=== PATIENT | female | born 1935 | race Caucasian/White ===

== ENCOUNTER 2016-04-07 15:20 | Emergency (ER) | payer OTHER ==
[2016-04-07 15:36] VITALS: BP 123/67; PULSE 59; TEMP 97.9; BMI 23.0
[2016-04-07 15:55] LABS: BASOPHIL 0.7 % (0-2.0); EOSINOPHIL 0.4 % (0-4.5); MCH 27.7 pg (25.7-33.7); MCHC 33.1 g/dl (32.0-36.0); MEAN CELL VOLUME 83.7 fl (80-96); NEUTROPHILS 87.7 % (42.8-82.8); PLATELET COUNT 354 K/MM3 (134-434); RDW 16.5 % (11.6-15.6); WHITE BLOOD COUNT 13.4 K/mm3 (4.0-10.0)
[2016-04-07] MEDS ORDERED: PANTOPRAZOLE SODIUM 40 MG in SODIUM CHLORIDE 100 ML IVPB ONE (15:57)
--- NOTE | 2016-04-07 15:57 | PDOC ---
History of Present Illness <Lalo Bowling - Last Filed: 04/07/16 16:02> - General History Source: Patient Exam Limitations: No Limitations - History of Present Illness Initial Comments: 04/07/16 16:03 The patient is a 81 year old female, with significant past medical history HTN, HLD, [place] (10 years ago) CAD (stent x1), COPD, GERD, hypothyroidism, peptic ulcer disease, severe anemia, who presents today complaining of abdominal pain and nausea. Zofran was administered to the patient in the field. The patient states that she experienced epigastric pain that was nonradiating, while she was at the store. She states that the pain was severe and felt like a spasm. Upon arrival to the emergency room, she is not experiencing any symptoms. Denies fever, chills, constipation, diarrhea. Denies chest pain, SOB. Allergies: Penicillin, Dicloxacillin Surgical Hx: subtotal gastrectomy, appendectomy, cholecystectomy. Social Hx: Former smoker. Former alcohol use. Registered Mail Clerk: Dr. Terell Boland Bottom Precipitator Operator: Dr. Patel <Corrina Jiménez - Last Filed: 04/07/16 16:16> <Barbara Lombardo - Last Filed: 04/07/16 20:43> - General Chief Complaint: Pain, Acute Stated Complaint: ABD PAIN Past History - Past Medical History Cardiac Disorders: Yes ([place] 10 year ago 1 stent) COPD: Yes (H/O PNEUMONIA) GI Disorders: Yes (ACID REFLUX) HTN: Yes Hypercholesterolemia: Yes Thyroid Disease: Yes - Surgical History Abdominal Surgery: Yes (PARTIAL GASTECTOMY) Appendectomy: Yes Cholecystectomy: Yes Lung Surgery: Yes - Psycho/Social/Smoking Cessation Hx Anxiety: Yes (severe) Suicidal Ideation: No Smoking Status: Yes Smoking History: Former smoker Have you smoked in the past 12 months: No Number of Cigarettes Smoked Daily: 0 If you are a former smoker, when did you quit?: 10YRS AGO Information on smoking cessation initiated: No Hx Alcohol Use: No Drug/Substance Use Hx: No Substance Use Type: None Hx Substance Use Treatment: No <Lalo Bowling - Last Filed: 04/07/16 16:02> <Corrina Jiménez - Last Filed: 04/07/16 16:16> <Barbara Lombardo - Last Filed: 04/07/16 20:43> - Past Medical History Allergies/Adverse Reactions: Allergies Allergy/AdvReac Type Severity Reaction Status Date / Time Penicillins Allergy Severe Swelling Verified 04/07/16 15:32 dicloxacillin [Dicloxacillin] Allergy Intermediate Rash Verified 04/07/16 15:32 Home Medications: Ambulatory Orders Cholecalciferol (Vitamin D3) [Vitamin D] 1,000 unit PO DAILY 06/17/13 Ezetimibe/Simvastatin [Vytorin 10-20 mg Tablet] 1 each PO HS 06/17/13 Omeprazole 40 mg PO DAILY 06/17/13 Alprazolam [Xanax] 0.5 mg PO PRN PRN 07/04/14 Levothyroxine [Synthroid -] 75 mcg PO DAILY 07/04/14 Venlafaxine HCl [Effexor -] 75 mg PO DAILY 07/04/14 Atenolol [Tenormin -] 50 mg PO DAILY 09/24/15 Losartan Potassium 50 mg PO DAILY 09/24/15 Ezetimibe/Simvastatin [Vytorin 10-20 mg Tablet] 1 tab PO DAILY 04/07/16 Venlafaxine HCl ER [Effexor Xr -] 37.5 mg PO DAILY 04/07/16 Review of Systems - Review of Systems Able to Perform ROS?: Yes Comments:: 04/07/16 16:05 CONSTITUTIONAL: Absent: fever, no chills, no fatigue EYES: Absent: visual changes ENT: Absent: ear pain, no sore throat CARDIOVASCULAR: Absent: chest pain, no palpitations RESPIRATORY: Absent: cough, no SOB GI: Present: +epigastric pain, nausea, vomiting. Absent: no constipation, no diarrhea GENITOURINARY: Absent: dysuria, no frequency, no hematuria MUSCULOSKELETAL: Absent: back pain, no arthralgia, no myalgia SKIN: Absent: rash <Corrina Jiménez - Last Filed: 04/07/16 16:16> *Physical Exam - Vital Signs Last Vital Signs Temp Pulse Resp BP Pulse Ox 97.9 F 59 L 18 123/67 95 04/07/16 15:33 04/07/16 15:33 04/07/16 15:33 04/07/16 15:33 04/07/16 15:33 <Lalo Bowling - Last Filed: 04/07/16 16:02> - Vital Signs Last Vital Signs Temp Pulse Resp BP Pulse Ox 97.9 F 59 L 18 123/67 95 04/07/16 15:33 04/07/16 15:33 04/07/16 15:33 04/07/16 15:33 04/07/16 15:33 - Physical Exam Comments: 04/07/16 16:05 GENERAL: Well-appearing, well-nourished. No apparent distress. HEENT: Normocephalic, atraumatic. PERRL, EOM intact. CARDIOVASCULAR: Normal S1, S2. Regular rate and rhythm. PULMONARY: Clear to auscultation bilaterally. ABDOMEN: Soft, non-distended, non-tender. EXTREMITIES: Normal ROM in all four extremities. No gross deformities. SKIN: Warm, dry. No rash NEUROLOGICAL: No focal neurological deficits. <Corrina Jiménez - Last Filed: 04/07/16 16:16> - Vital Signs Last Vital Signs Temp Pulse Resp BP Pulse Ox 97.9 F 59 L 18 123/67 95 04/07/16 15:33 04/07/16 15:33 04/07/16 15:33 04/07/16 15:33 04/07/16 15:33 <Barbara Lombardo - Last Filed: 04/07/16 20:43> ED Treatment Course - LABORATORY CBC & Chemistry Diagram: 04/07/16 15:45 04/07/16 15:45 <Lalo Bowling - Last Filed: 04/07/16 16:02> - LABORATORY CBC & Chemistry Diagram: 04/07/16 15:45 04/07/16 15:45 - ADDITIONAL ORDERS Additional order review: 04/07/16 15:45 RBC 4.21 MCV 83.7 MCHC 33.1 RDW 16.5 H D MPV 7.0 L Neutrophils % 87.7 H Lymphocytes % 5.9 L Monocytes % 5.3 Eosinophils % 0.4 Basophils % 0.7 D <Corrina Jiménez - Last Filed: 04/07/16 16:16> - LABORATORY CBC & Chemistry Diagram: 04/07/16 15:45 04/07/16 15:45 - ADDITIONAL ORDERS Additional order review: Laboratory Results 04/07/16 04/07/16 15:45 15:45 INR 1.02 PTT (Actin FS) 28.5 Sodium 137 Potassium 4.3 Chloride 102 Carbon Dioxide 27 Anion Gap 8 BUN 15 Creatinine 0.7 Creat Clearance w eGFR > 60 Random Glucose 105 D Calcium 8.5 Total Bilirubin 0.4 D AST 214 H ALT 85 H Alkaline Phosphatase 185 H Creatine Kinase 42 Troponin I < 0.02 Total Protein 6.8 Albumin 3.1 L 04/07/16 15:45 RBC 4.21 MCV 83.7 MCHC 33.1 RDW 16.5 H D MPV 7.0 L Neutrophils % 87.7 H Lymphocytes % 5.9 L Monocytes % 5.3 Eosinophils % 0.4 Basophils % 0.7 D - Medications Given in the ED: ED Medications Discontinued Medications Generic Name Dose Route Start Last Admin Trade Name Freq PRN Reason Stop Dose Admin Pantoprazole Sodium 40 mg/ 100 mls @ 200 mls/hr 04/07/16 15:57 04/07/16 16:17 Sodium Chloride IVPB 04/07/16 16:26 200 mls/hr ONCE ONE Administration <Barbara Lombardo - Last Filed: 04/07/16 20:43> Medical Decision Making - Medical Decision Making 04/07/16 16:06 History of CAD with 1 stent. History of subtotal gastrectomy. The pain is epigastric and feels like a spasm. Working up the stomach and possible CAD. <Corrina Jiménez - Last Filed: 04/07/16 16:16> - Medical Decision Making 04/07/16 19:41 Patient Name: Kelly Jackson THIS IS A PRELIMINARY REPORT FROM [facility] EXAM: X-ray: Portable chest IMAGES: 2 INDICATION: Chest pain TECHNIQUE: X-ray DATE OF SERVICE: 2016-04-07 16:36:30.0 COMPARISON: none FINDINGS: Mild right midlung scarring. No acute infiltrates or effusions. Heart size is normal and the trachea is midline. There is scoliosis of the thoracic spine convex to the right. Normal upper abdomen. IMPRESSION: Mild mid right lung scarring or discoid atelectasis. Scoliosis. 04/07/16 20:37 Patient Name: Kelly Jackson THIS IS A PRELIMINARY REPORT FROM [facility] EXAM: Limited abdominal ultrasound IMAGES: 42 INDICATION: Cholecystectomy. Rule out stone or biliary disease TECHNIQUE: Ultrasound DATE OF SERVICE: 2016-04-07 18:43:20.0 COMPARISON: none FINDINGS: Liver: Normal. Gallbladder: Absent. The paraspinal ducts: Normal. Common bile duct measures less than 6 mm. Right kidney: Normal. The kidney measures 8.8 cm in length. No hydronephrosis, mass, or stones Pancreas: Normal. Pancreatic tail not visualized. Aorta: Normal. The IVC is patent IMPRESSION: Normal exam status post cholecystectomy. THIS DOCUMENT HAS BEEN ELECTRONICALLY SIGNED <Barbara Lombardo - Last Filed: 04/07/16 20:43> *DC/Admit/Observation/Transfer <Lalo Bowling - Last Filed: 04/07/16 16:02> - Attestations Scribe Attestion: 04/07/16 16:06 Documentation prepared by SCOTT Yepez, acting as medical data entry clerk for Lalo Bowling MD, /DO. <Corrina Jiménez - Last Filed: 04/07/16 16:16> - Discharge Dispostion Admit: No <Barbara Lombardo - Last Filed: 04/07/16 20:43> Diagnosis at time of Disposition: Epigastric abdominal pain, Inflammatory liver disease - Discharge Dispostion Disposition: HOME Condition at time of disposition: Stable - Referrals Referrals: Mikhail Oliva MD [Staff Physician] - - Patient Instructions Printed Discharge Instructions: Liver Function Tests, DI for Acute Abdomen
[2016-04-07] MEDS ORDERED: ONDANSETRON 4 MG/2 ML VIAL ONE (15:59)
[2016-04-07] MEDS ORDERED: PANTOPRAZOLE SODIUM 100 ML IVPB ONE (16:02)
[2016-04-07 16:11] LABS: INR 1.02 (0.82-1.09); PROTHROMBIN TIME (PATIENT) 11.2 SEC (9.98-11.88)
[2016-04-07 16:13] LABS: ACTIVATED PTT 28.5 SECONDS (26.9-34.4)
[2016-04-07 16:54] LABS: ALBUMIN 3.1 g/dl (3.4-5.0); ANION GAP 8 (8-16); BILIRUBIN,TOTAL 0.4 mg/dL (0.2-1.0); CALCIUM 8.5 mg/dL (8.5-10.1); CO2 27 mmol/L (21-32); CREATININE 0.7 mg/dL (0.55-1.02); GLUCOSE,RANDOM 105 mg/dL (74-106); SGOT/AST 214 U/L (15-37); SGPT/ALT 85 U/L (12-78); TOT PROT 6.8 g/dl (6.4-8.2)
[2016-04-07 16:57] LABS: ALK PHOS 185 U/L (45-117); TROPONIN I < 0.02 ng/ml (0.00-0.05)
--- NOTE | 2016-04-08 11:07 | EKG ---
Test Reason : Blood Pressure : / mmHG Vent. Rate : 059 BPM Atrial Rate : 059 BPM P-R Int : 220 ms QRS Dur : 070 ms QT Int : 452 ms P-R-T Axes : 074 -15 052 degrees QTc Int : 447 ms SINUS BRADYCARDIA WITH 1ST DEGREE A-V BLOCK POSSIBLE INFERIOR INFARCT (CITED ON OR BEFORE 07-APR-2016) CANNOT RULE OUT ANTERIOR INFARCT (CITED ON OR BEFORE 07-APR-2016) ABNORMAL ECG WHEN COMPARED WITH ECG OF 07-APR-2016 16:39, COMPARED TO EKG NO SIGNIFICANT CHANGE IS FOUND Confirmed by AIRAM BOONE MD ([id number]) on 04/08/2016 11:06:53 AM Referred By: Confirmed By:AIRAM BOONE MD
== END 2016-04-07 21:28 | disposition home or self-care (01) ==
LOC: JER 15:20
PROC: 3E033GC Introduction of Other Therapeutic Substance into Peripheral Vein, Percutaneous Approach (ICD-10-PCS; principal; 2016-04-07)
DX: R10.13 Epigastric pain (principal); K75.89 Other specified inflammatory liver diseases; I25.10 Atherosclerotic heart disease of native coronary artery without angina pectoris; I10 Essential (primary) hypertension; Z95.5 Presence of coronary angioplasty implant and graft; Z87.891 Personal history of nicotine dependence; I25.2 Old myocardial infarction; E78.00 Pure hypercholesterolemia, unspecified; E03.9 Hypothyroidism, unspecified; K21.9 Gastro-esophageal reflux disease without esophagitis; D64.9 Anemia, unspecified
CPT/HCPCS: 36415; 71010-TC; 76705-TC; 80053; 82550; 84484; 85025; 85610; 85730; 93005; 93010; 96365; 99282-25

== ENCOUNTER 2016-08-12 14:20 | Inpatient (IN) | payer OTHER ==
[2016-08-12] MEDS ORDERED: ADENOSINE 6 MG/2 ML VIAL IVPUSH ONE (14:29)
[2016-08-12 14:43] VITALS: BMI 23.6
--- NOTE | 2016-08-12 15:03 | PDOC ---
History of Present Illness - General History Source: Patient, Old Records Exam Limitations: No Limitations <Ellen Ceja - Last Filed: 08/12/16 17:08> - General History Source: Patient Exam Limitations: No Limitations <Nga Tabor - Last Filed: 08/13/16 21:39> - General Chief Complaint: Palpitations Stated Complaint: HEART Palpitations Time Seen by Provider: 08/12/16 15:02 - History of Present Illness Initial Comments: 08/12/16 15:04 The patient is an 81-year-old woman with a significant past medical history of hypertension, hypercholesterolemia, myocardial infarction status post stent placement, gastroesophageal reflux disease, thyroid disease and chronic obstructive pulmonary disease who presents to the emergency department for further evaluation of palpitations since yesterday. She was in her usual state of health at home when she started to experience palpitations, described as racing heart beats on her way from her living room to her kitchen. She states that she sat down for approximately 30-45 minutes, which helped with her palpitations. She states that his morning, she experienced similar symptoms and proceeded to sit down, however after sitting and no exertional activity for 30 minutes- 1 hour, her palpitations remained throughout, thus presenting to the ED. She expresses concern that hers symptoms may be related to her thyroid disease. She denies fever, chills, cough, hemoptysis, diaphoresis, shortness of breath, headache. She denies chest pain, lightheadedness, dizzinesses, syncope, jaw/ back pain lower extremity pain/swelling, calf tenderness/pain She denies abdominal pain, nausea, vomiting. She denies recent travel, recent surgery, recent immobilization. Allergies: Penicillin. Dicloxacillin Pats Surgical History: Stent placement. Partial gastectomy. Appendectomy. Cholecystesctomy. Social History: Former smoker. No EtOH and recreational drug use. Primary Care Physician: Dr. Mavis Crespo. (Ellen Ceja) Past History <Ellen Ceja - Last Filed: 08/12/16 17:08> - Past Medical History Cardiac Disorders: Yes ([place] 10 year ago 1 stent) COPD: Yes (H/O PNEUMONIA) GI Disorders: Yes (ACID REFLUX) HTN: Yes Hypercholesterolemia: Yes Thyroid Disease: Yes - Surgical History Abdominal Surgery: Yes (PARTIAL GASTECTOMY) Appendectomy: Yes Cardiac Surgery: Yes (stent) Cholecystectomy: Yes Lung Surgery: Yes - Psycho/Social/Smoking Cessation Hx Anxiety: Yes (severe) Suicidal Ideation: No Smoking Status: Yes Smoking History: Former smoker Have you smoked in the past 12 months: No Number of Cigarettes Smoked Daily: 0 If you are a former smoker, when did you quit?: 30yrs Information on smoking cessation initiated: No Hx Alcohol Use: No Drug/Substance Use Hx: No Substance Use Type: None Hx Substance Use Treatment: No <Nga Tabor - Last Filed: 08/13/16 21:39> - Past Medical History Allergies/Adverse Reactions: Allergies Allergy/AdvReac Type Severity Reaction Status Date / Time Penicillins Allergy Severe Swelling Verified 08/12/16 14:41 dicloxacillin [Dicloxacillin] Allergy Intermediate Rash Verified 08/12/16 14:41 Home Medications: Ambulatory Orders Cholecalciferol (Vitamin D3) [Vitamin D] 1,000 unit PO DAILY 06/17/13 Omeprazole 40 mg PO DAILY 06/17/13 Alprazolam [Xanax] 0.5 mg PO HS PRN 07/04/14 Levothyroxine [Synthroid -] 75 mcg PO DAILY 07/04/14 Venlafaxine HCl [Effexor -] 75 mg PO DAILY 07/04/14 Losartan Potassium 50 mg PO DAILY 09/24/15 Venlafaxine HCl ER [Effexor Xr -] 37.5 mg PO DAILY 04/07/16 Aspirin [Ecotrin] 81 mg PO DAILY 08/12/16 Atorvastatin Calcium [Lipitor] 10 mg PO DAILY 08/12/16 Review of Systems - Review of Systems Able to Perform ROS?: Yes <Ellen Ceja - Last Filed: 08/12/16 17:08> <Nga Tabor - Last Filed: 08/13/16 21:39> - Review of Systems Comments:: 08/12/16 15:04 GENERAL/CONSTITUTIONAL: No: fever, chills, weakness, loss of appetite. HEAD, EYES, EARS, NOSE AND THROAT: No: change in vision, ear pain, discharge, sore throat, throat swelling. CARDIOVASCULAR: Yes: Palpitations. No: chest pain, lightheadedness, syncope RESPIRATORY: No: cough, shortness of breath, wheezing, hemoptysis, stridor. GASTROINTESTINAL: No: nausea, vomiting, abdominal cramping, diarrhea, rectal bleeding, constipation. GENITOURINARY: No: dysuria, hematuria, frequency, urgency, flank pain. MUSCULOSKELETAL: No: back pain, neck pain, joint pain, muscle swelling or pain SKIN AND BREASTS: No: lesions, pallor, rash or easy bruising. NEUROLOGIC: No: headache, vertigo, paresthesias, weakness ENDOCRINE: No: unexplained weight gain or loss HEMATOLOGIC/LYMPHATIC: No: anemia, easy bleeding, swelling nodes (Ellen Ceja) *Physical Exam <Ellne Ceja - Last Filed: 08/12/16 17:08> <Nga Tabor - Last Filed: 08/13/16 21:39> - Vital Signs Last Vital Signs Temp Pulse Resp BP Pulse Ox 98.1 F 78 16 109/58 97 08/13/16 14:41 08/13/16 14:41 08/13/16 14:41 08/13/16 14:41 08/13/16 11:00 - Physical Exam Comments: 08/12/16 15:04 GENERAL: The patient is in no acute distress. HEAD: Normal with no signs of trauma. EYES: PERRLA, EOMI, sclera anicteric, conjunctiva clear. ENT: Ears normal, nares patent, oropharynx clear without exudates. Moist mucous membranes. NECK: Normal range of motion, supple without lymphadenopathy, JVD, or masses. LUNGS: Breath sounds equal, clear to auscultation bilaterally. No wheezes, and no crackles. HEART:Regular rate and rhythm, normal S1 and S2 without murmur, rub or gallop. ABDOMEN: Soft, nontender, normoactive bowel sounds. No guarding, no rebound. EXTREMITIES: Normal range of motion, no edema. No clubbing or cyanosis. No erythema, or tenderness. NEUROLOGICAL: Cranial nerves II through XII grossly intact. Normal speech. No focal neurological deficits. MUSCULOSKELETAL: Back non-tender to palpation, no CVA tenderness SKIN: Warm, Dry, normal turgor, no rashes or lesions noted. (Ellen Ceja) Heart Score/ECG Review <Ellen Ceja - Last Filed: 08/12/16 17:08> #1 ECG reviewed & interpreted by me at: 18:09 <Nga Tabor - Last Filed: 08/13/16 21:39> #1 08/12/16 18:09 Twelve-lead EKG was performed and reviewed by me. There is normal sinus rhythm with a normal rate of 72bpm. The axis is normal. The intervals are normal - pr: 192ms, QRS:70ms, QTc:448ms. There are ST elevations v2, v3. T waves nml (Nga Tabor) ED Treatment Course - LABORATORY CBC & Chemistry Diagram: 08/12/16 13:30 08/12/16 13:30 <Ellen Ceja - Last Filed: 08/12/16 17:08> - LABORATORY CBC & Chemistry Diagram: 08/12/16 13:30 08/13/16 06:00 <Nga Tabor - Last Filed: 08/13/16 21:39> - ADDITIONAL ORDERS Additional order review: 08/12/16 13:30 RBC 4.22 MCV 87.4 MCHC 32.9 RDW 13.5 D MPV 7.2 L Neutrophils % 79.9 Lymphocytes % 11.1 D Monocytes % 7.3 Eosinophils % 1.2 D Basophils % 0.5 - RADIOLOGY Radiology Studies Ordered: Category Date Time Status CHEST X-RAY PORTABLE* [RAD] Stat Radiology 08/12/16 16:47 Completed - Medications Given in the ED: ED Medications Discontinued Medications Generic Name Dose Route Start Last Admin Trade Name Freq PRN Reason Stop Dose Admin Aspirin 162 mg 08/12/16 16:34 08/12/16 16:46 Asa - PO 08/12/16 16:35 162 mg ONCE ONE Administration Enoxaparin Sodium 60 mg 08/12/16 21:15 08/12/16 22:05 Lovenox - SQ Not Given ONCE [place] Enoxaparin Sodium 60 mg 08/12/16 21:15 08/12/16 21:35 Lovenox - SQ 08/12/16 21:16 60 mg ONCE ONE Administration Heparin Sodium (Porcine) 25, 500 mls @ 16 mls/hr 08/12/16 18:15 08/12/16 18:55 000 unit/ Sodium Chloride IV 16 mls/hr TITR [place] Administration Protocol 800 UNIT/HR Losartan Potassium 50 mg 08/13/16 10:00 08/13/16 10:31 Cozaar - PO 50 mg DAILY [place] Administration Medical Decision Making <Ellen Ceja - Last Filed: 08/12/16 17:08> - Critical Care Time Total Critical Care Time (minutes): 60 Critical Care Statement: The care of this patient involved high complexity decision making to prevent further life threatening deterioration of the patient 's condition and/or to evalute & treat vital organ system(s) failure or risk of failure. <Nga Tabor - Last Filed: 08/13/16 21:39> - Medical Decision Making 08/12/16 16:[address] Karly Tan who is covering for Dr. Mavis Crespo. 08/12/16 17:[address] Tan. Case was discussed. (CejaEllen vail) 08/12/16 15:03 A portion of this note was documented by scribe services under my direction. I have reviewed the details of the note, within reason, and agree with the documentation with the following case summary and management plan written by me. Nursing documentation reviewed and incorporated into medical decision making This patient is an 81-year-old female with a history of hypertension, hyperlipidemia, coronary artery disease status post [place] 10 years ago and stenting , GERD, prior history of bleeding ulcers status post partial gastrectomy. Patient presents emergency department via EMS due to SVT. Patient was given adenosine with improvement in Heart Rate Pt has had palpitations for the past 3 days intermittently, possible exertional component No chest pain No shortness of breath No nausea no lower extremity swelling or edema 08/12/16 16:49 Laboratory Tests 08/12/16 08/12/16 13:30 13:30 WBC 9.5 Hgb 12.2 Hct 36.9 Plt Count 316 BUN 14 Creatinine 0.6 Alkaline Phosphatase 129 H D Troponin I 2.70 H* TSH < 0.01 L 08/12/16 16:50 Patient is pending portable chest x ray 08/12/16 17:[address] Mullen: including pt elevated trop and ST segments in I , v2, v3 States that her trop and EKG changes would make sense in light of her SVT Recommends Lopressor 50 mg po bid and Lovenox Trop likely due to SVT vs. GA several days ago I have had a conversation with this patient She states that she definitely did not have any chest pain in the past few days Some time last week (she thinks about friday) she had an episode of nausea and diaphoresis which self resolved She did have a recent endoscopy and biopsy She was taken off of her Aspirin prior to this procedure Has not resumed her Aspirin per GI physician's instruction not to resume this medication 08/12/16 17:56 I have reviewed this with Dr. Tan Will anticoagulate with heparin (which can be removed if pt has any bleeding) Guiaic pending 08/12/16 18:11 08/12/16 18:12 Guiaic negative 08/12/16 18:12 08/12/16 21:13 Repeat trop sent Noted to be higher Will give Lovenox (Nga Tabor) *DC/Admit/Observation/Transfer <Ellen Ceja - Last Filed: 08/12/16 17:08> - Discharge Dispostion Admit: Yes <Nga Tabor - Last Filed: 08/13/16 21:39> Diagnosis at time of Disposition: Sustained SVT, Troponin I above reference range - Discharge Dispostion Condition at time of disposition: Fair - Referrals - Attestations Scribe Attestion: 08/12/16 15:04 Documentation prepared by Ellen Ceja, acting as resident medical officer for Nga Tabor MD. (Ellen Ceja)
[2016-08-12 15:45] LABS: BASOPHIL 0.5 % (0-2.0); EOSINOPHIL 1.2 % (0-4.5); MCH 28.8 pg (25.7-33.7); MCHC 32.9 g/dl (32.0-36.0); MEAN CELL VOLUME 87.4 fl (80-96); MEAN PLT VOLUME 7.2 fl (7.5-11.1); NEUTROPHILS 79.9 % (42.8-82.8); PLATELET COUNT 316 K/MM3 (134-434); RDW 13.5 % (11.6-15.6); WHITE BLOOD COUNT 9.5 K/mm3 (4.0-10.0)
[2016-08-12 15:58] LABS: INR 0.96 (0.82-1.09); PROTHROMBIN TIME (PATIENT) 10.5 SEC (9.98-11.88)
[2016-08-12 16:11] LABS: ALBUMIN 3.1 g/dl (3.4-5.0); ANION GAP 7 (8-16); BILIRUBIN,TOTAL 0.2 mg/dL (0.2-1.0); CALCIUM 8.7 mg/dL (8.5-10.1); CO2 26 mmol/L (21-32); COCKROFT - GAULT 62.645; CREATININE 0.6 mg/dL (0.55-1.02); GLUCOSE,RANDOM 78 mg/dL (74-106); MAGNESIUM 2.2 mg/dL (1.8-2.4); SGOT/AST 24 U/L (15-37); SGPT/ALT 18 U/L (12-78); TOT PROT 6.8 g/dl (6.4-8.2)
[2016-08-12 16:26] LABS: ALK PHOS 129 U/L (45-117); THYROID STIMULATING HORMONE < 0.01 uIU/ml (0.358-3.74)
[2016-08-12] MEDS ORDERED: ASPIRIN 81 MG CHEWABLE TABLETS PO ONE (16:34)
[2016-08-12] MEDS ORDERED: ASPIRIN 81 MG CHEWABLE TABLETS ONE (16:48)
[2016-08-12] MEDS ORDERED: HEPARIN - 25,000 UNIT in SODIUM CHLORIDE 495 ML IV SCH (18:15)
[2016-08-12] MEDS ORDERED: HEPARIN INFUSION - 500 ML IVPB ONE (18:45)
[2016-08-12 19:58] LABS: TROPONIN I 3.81 ng/ml (0.00-0.05)
[2016-08-12] MEDS ORDERED: ACETAMINOPHEN 325 MG TABLET (FP) PO PRN (21:13)
[2016-08-12] MEDS ORDERED: ENOXAPARIN NA (PORCINE) 60 MG/0.6 ML DISP.SYRIN SQ SCH (21:15)
[2016-08-12] MEDS ORDERED: ENOXAPARIN NA (PORCINE) 60 MG/0.6 ML DISP.SYRIN SQ ONE ×2 (21:15→21:31)
[2016-08-12] MEDS ORDERED: ALPRAZolam 0.25 MG TABLET ONE (21:31)
[2016-08-12] MEDS: ALPRAZolam 0.25 MG TABLET PO PRN (22:05)
[2016-08-12] MEDS ORDERED: ATORVASTATIN CA 40 MG TABLET (FP) ONE (22:22)
[2016-08-12] MEDS ORDERED: PANTOPRAZOLE 40 MG TABLET (FP) ONE (22:22)
[2016-08-12] MEDS: PANTOPRAZOLE 40 MG TABLET (FP) PO SCH (22:50)
[2016-08-12] MEDS: ATORVASTATIN CA 20 MG TABLET (FP) PO SCH (22:50)
[2016-08-13] MEDS ORDERED: HEPARIN NA (PORCINE) 5,000 UNITS/ML 1ML VIAL IVPUSH PRN ×2 (00:48)
[2016-08-13] MEDS: HEPARIN - 25,000 UNIT in SODIUM CHLORIDE 495 ML IV SCH (02:18)
[2016-08-13] MEDS ORDERED: LOSARTAN POTASSIUM 50 MG TABLET (FP) PO SCH (10:00)
--- NOTE | 2016-08-13 10:29 | CON.CARD ---
Cardiology Consult (text) - Consultation Consultation Note: CC: svt, nstemi 81 yo wit h/o hypertension, hypercholesterolemia, CAD s/p myocardial infarction/ PCI > 10 yrs ago, gastroesophageal reflux disease/ulcers/partial gastrectomy in her 20's now with chronic anemia (last transfusion > 1 yr ago per patient), thyroid disease, anxiety and chronic obstructive pulmonary disease who presents to the emergency department with palpitations. palps x 1 week, progressing in severity. constant sensation of fast heart rate. No associated sx's. Sx's lessened with rest. Sx's became very severe on day of admit prompting evaluation. She denies fever, chills, sweats, cough, n/v/d, headache, rashes. . She denies chest pain, diaphoresis, shortness of breath, lightheadedness, syncope, bleeding, orthopnea, pnd, le edema or transient neurologic symptoms. Received adenosine x 3 by EMS with improvement in heart rate per ER notes. Reviewed EMS strips in EMR --> poor baseline, but may be consistent with atach. cards: Dr. Domingo PMHx/Past Surgical History: per hpi, Stent placement. Partial gastectomy. Prior lung surgery, Appendectomy. Cholecystesctomy. Social History: Former smoker. No EtOH and recreational drug use. fam hx: no hx of arrhythmia. ros: per hpi Ambulatory Orders Cholecalciferol (Vitamin D3) [Vitamin D] 1,000 unit PO DAILY 06/17/13 Omeprazole 40 mg PO DAILY 06/17/13 Alprazolam [Xanax] 0.5 mg PO HS PRN 07/04/14 Levothyroxine [Synthroid -] 75 mcg PO DAILY 07/04/14 Venlafaxine HCl [Effexor -] 75 mg PO DAILY 07/04/14 Losartan Potassium 50 mg PO DAILY 09/24/15 Venlafaxine HCl ER [Effexor Xr -] 37.5 mg PO DAILY 04/07/16 Aspirin [Ecotrin] 81 mg PO DAILY 08/12/16 Atorvastatin Calcium [Lipitor] 10 mg PO DAILY 08/12/16 Current Medications Acetaminophen (Tylenol -) 650 mg PO Q6H PRN PRN Reason: FEVER OR PAIN Alprazolam (Xanax -) 0.5 mg PO Q8H PRN PRN Reason: ANXIETY Last Admin: 05/29/17 22:05 Dose: 0.5 mg Aspirin (Ecotrin -) 81 mg PO DAILY [facility] Atorvastatin Calcium (Lipitor -) 20 mg PO HS [facility] Last Admin: 08/12/16 22:50 Dose: 20 mg Heparin Sodium (Porcine) (Heparin -) 5,000 unit IVPUSH PRN PRN Heparin Sodium (Porcine) (Heparin -) 1,000 unit IVPUSH PRN PRN Heparin Sodium (Porcine) 25, (000 unit/ Sodium Chloride) 500 mls @ 16 mls/hr IV TITR [place]; 800 UNIT/HR PRN Reason: Protocol Last Admin: 08/13/16 02:18 Dose: Not Given Losartan Potassium (Cozaar -) 50 mg PO DAILY [facility] Pantoprazole Sodium (Protonix -) 40 mg PO BID [facility] Last Admin: 08/12/16 22:50 Dose: 40 mg Venlafaxine HCl (Effexor Xr -) 37.5 mg PO DAILY [facility] Vital Signs - 24 hr 08/12/16 08/12/16 08/12/16 14:20 14:40 17:10 Temperature 97.9 F 97.9 F Pulse Rate 72 Pulse Rate [ 71 Apical] Respiratory 18 16 Rate Blood Pressure 113/70 Blood Pressure 121/70 [Right Arm] O2 Sat by Pulse 97 99 97 Oximetry (%) 08/12/16 08/12/16 08/12/16 18:55 22:50 23:07 Temperature 98.0 F Pulse Rate 61 Pulse Rate [ 68 Apical] Respiratory 16 18 Rate Blood Pressure 140/84 131/72 Blood Pressure 116/70 [Right Arm] O2 Sat by Pulse 99 98 Oximetry (%) 08/13/16 08/13/16 08/13/16 02:02 02:51 03:00 Temperature 98.2 F 98.2 F Pulse Rate 61 61 Pulse Rate [ Apical] Respiratory 18 18 18 Rate Blood Pressure 110/53 131/53 Blood Pressure [Right Arm] O2 Sat by Pulse 98 Oximetry (%) 08/13/16 08/13/16 03:01 06:00 Temperature 98.1 F Pulse Rate 75 Pulse Rate [ Apical] Respiratory 18 18 Rate Blood Pressure 130/60 Blood Pressure [Right Arm] O2 Sat by Pulse 98 Oximetry (%) nad, calm jvd flat, neck supple ctab, nl effort rrr nl s1, s2 no mrg + bs soft nt nd ext without e/c/c + dp/pt no jaundice, diaphoresis aaox3 CBC, BMP 08/12/16 13:30 08/12/16 13:30 Laboratory Tests 08/12/16 08/12/16 08/13/16 13:30 18:50 06:00 Hemoglobin A1c % Total Bilirubin 0.2 D AST 24 D ALT 18 D Alkaline Phosphatase 129 H D Creatine Kinase 104 136 Troponin I 2.70 H* 3.81 H* Cholesterol 153 Total LDL Cholesterol 81 HDL Cholesterol 62 H TSH < 0.01 L 08/13/16 06:00 Hemoglobin A1c % 5.5 Total Bilirubin AST ALT Alkaline Phosphatase Creatine Kinase Troponin I Cholesterol Total LDL Cholesterol HDL Cholesterol TSH EKG 08/12: nsr, av delay. inferior and anterolateral q waves. bline VINNIE in anterolateral leads slightly more prominent than on priors. No reciprocal changes. tele: sr cxr: report pending. no acute disease by my review 81 yo wit h/o hypertension, hypercholesterolemia, CAD s/p myocardial infarction/ PCI > 10 yrs ago, gastroesophageal reflux disease/ulcers/partial gastrectomy in her 20's now with chronic anemia (last transfusion > 1 yr ago per patient), thyroid disease, anxiety and chronic obstructive pulmonary disease who presents to the emergency department with palpitations/SVT complicated by nstemi. nstemi - likely demand in setting of SVT and known CAD. CK normal. However, slight rise and fall pattern --> agree with ACS treatment with AC x 48 hrs. would add plavix. Echo r/o new wall motion abnormalities. - patient endorses partial gastrectomy in her 20's and subsequent anemia intermittently requiring transfusions (states last transfusion was > 1 year ago) . Denies history of bleeding. Monitor hemoglobin closely with AC. - plan on stress testing for risk stratification (inpatient vs. outpatient pending clinical course). - on statin, adding BB. SVT - likely atach from review of EMS strips. - currently no recurrence - con't tele monitoring - echo - would add low dose metoprolol for suppression. lower losartan dose to make bp room. HTN - med adjustments as mentioned HL - statin
[2016-08-13] MEDS: PANTOPRAZOLE 40 MG TABLET (FP) PO SCH ×2 (10:31→21:11)
[2016-08-13] MEDS: ASPIRIN COATED 81 MG TABLET.EC PO SCH (10:31)
[2016-08-13] MEDS: ALPRAZolam 0.25 MG TABLET PO PRN ×2 (10:36→20:50)
[2016-08-13 11:21] LABS: COCKROFT - GAULT 54.247; CREATININE 0.7 mg/dL (0.55-1.02)
[2016-08-13 11:34] LABS: FREE T4 1.13 ng/dl (0.76-1.46)
[2016-08-13 11:44] LABS: TROPONIN I 2.35 ng/ml (0.00-0.05)
[2016-08-13] MEDS: VENLAFAXINE HCL 37.5 MG E.R. CAPSULE (FP) PO SCH (12:15)
--- NOTE | 2016-08-13 14:07 | EKG ---
Test Reason : Blood Pressure : / mmHG Vent. Rate : 071 BPM Atrial Rate : 071 BPM P-R Int : 210 ms QRS Dur : 070 ms QT Int : 406 ms P-R-T Axes : 072 -44 070 degrees QTc Int : 441 ms SINUS RHYTHM WITH 1ST DEGREE A-V BLOCK LEFT AXIS DEVIATION LOW VOLTAGE QRS INFERIOR INFARCT (CITED ON OR BEFORE 07-APR-2016) POSSIBLE ANTEROLATERAL INFARCT (CITED ON OR BEFORE 07-APR-2016) ABNORMAL ECG WHEN COMPARED WITH ECG OF 12-AUG-2016 22:32, T WAVE VARIATION Confirmed by ARUN DAVIS MD ([id number]) on 08/13/2016 2:07:00 PM Referred By: Timothy ZAMBRANO Confirmed By:ARUN DAVIS MD
--- NOTE | 2016-08-13 14:08 | EKG ---
Test Reason : Blood Pressure : / mmHG Vent. Rate : 068 BPM Atrial Rate : 068 BPM P-R Int : 196 ms QRS Dur : 068 ms QT Int : 422 ms P-R-T Axes : 042 -36 031 degrees QTc Int : 448 ms NORMAL SINUS RHYTHM LEFT AXIS DEVIATION LOW VOLTAGE QRS INFERIOR INFARCT (CITED ON OR BEFORE 07-APR-2016) POSSIBLE ANTEROLATERAL INFARCT (CITED ON OR BEFORE 07-APR-2016) ABNORMAL ECG WHEN COMPARED WITH ECG OF 12-AUG-2016 14:25, NO SIGNIFICANT CHANGE WAS FOUND Confirmed by ARUN DAVIS MD ([id number]) on 08/13/2016 2:08:19 PM Referred By: Confirmed By:ARUN DAVIS MD
--- NOTE | 2016-08-13 14:15 | EKG ---
Test Reason : Blood Pressure : / mmHG Vent. Rate : 072 BPM Atrial Rate : 072 BPM P-R Int : 194 ms QRS Dur : 070 ms QT Int : 410 ms P-R-T Axes : 022 -35 033 degrees QTc Int : 448 ms NORMAL SINUS RHYTHM LEFT AXIS DEVIATION LOW VOLTAGE QRS POSSIBLE INFERIOR INFARCT (CITED ON OR BEFORE 07-APR-2016) POSSIBLE ANTEROLATERAL INFARCT (CITED ON OR BEFORE 07-APR-2016) ABNORMAL ECG WHEN COMPARED WITH ECG OF 07-APR-2016 16:39, NO SIGNIFICANT CHANGE WAS FOUND Confirmed by ARUN DAVIS MD ([id number]) on 08/13/2016 2:15:29 PM Referred By: Confirmed By:ARUN DAVIS MD
--- NOTE | 2016-08-13 15:35 | HP ---
Admitting History and Physical - Primary Care Physician PCP: Mavis Crespo - Admission Chief Complaint: CHEST PAIN History of Present Illness: The patient is an 81-year-old woman with a significant past medical history of hypertension, hypercholesterolemia, myocardial infarction status post stent placement, gastroesophageal reflux disease, thyroid disease and chronic obstructive pulmonary disease who presents to the emergency department for further evaluation of palpitations since yesterday. She was in her usual state of health at home when she started to experience palpitations, described as racing heart beats on her way from her living room to her kitchen. She states that she sat down for approximately 30-45 minutes, which helped with her palpitations. She states that his morning, she experienced similar symptoms and proceeded to sit down, however after sitting and no exertional activity for 30 minutes- 1 hour, her palpitations remained throughout, thus presenting to the ED. She expresses concern that hers symptoms may be related to her thyroid disease. She denies fever, chills, cough, hemoptysis, diaphoresis, shortness of breath, headache. She denies chest pain, lightheadedness, dizzinesses, syncope, jaw/ back pain lower extremity pain/swelling, calf tenderness/pain She denies abdominal pain, nausea, vomiting. She denies recent travel, recent surgery, recent immobilization. History Source: Patient, Family Member, Medical Record, Transfer Record Limitations to Obtaining History: Clinical Condition - Past Medical History Cardiovascular: Yes: Hyperlipdemia Pulmonary: Yes: COPD ...: No Heme/Onc: Yes: Anemia, B12 Deficiency Psych: Yes: Anxiety, Depression Endocrine: Yes: Hypothyroidism - Smoking History Smoking history: Former smoker Have you smoked in the past 12 months: No Aproximately how many cigarettes per day: 0 If you are a former smoker, when did you quit?: 30yrs - Alcohol/Substance Use Hx Alcohol Use: No Home Medications - Allergies Allergies/Adverse Reactions: Allergies Allergy/AdvReac Type Severity Reaction Status Date / Time Penicillins Allergy Severe Swelling Verified 08/12/16 14:41 dicloxacillin [Dicloxacillin] Allergy Intermediate Rash Verified 08/12/16 14:41 - Home Medications Home Medications: Ambulatory Orders Cholecalciferol (Vitamin D3) [Vitamin D] 1,000 unit PO DAILY 06/17/13 Omeprazole 40 mg PO DAILY 06/17/13 Alprazolam [Xanax] 0.5 mg PO HS PRN 07/04/14 Levothyroxine [Synthroid -] 75 mcg PO DAILY 07/04/14 Venlafaxine HCl [Effexor -] 75 mg PO DAILY 07/04/14 Losartan Potassium 50 mg PO DAILY 09/24/15 Venlafaxine HCl ER [Effexor Xr -] 37.5 mg PO DAILY 04/07/16 Aspirin [Ecotrin] 81 mg PO DAILY 08/12/16 Atorvastatin Calcium [Lipitor] 10 mg PO DAILY 08/12/16 Review of Systems - Review of Systems Constitutional: reports: Weakness Eyes: reports: No Symptoms HENT: reports: No Symptoms Neck: reports: No Symptoms Cardiovascular: reports: No Symptoms Respiratory: reports: No Symptoms Gastrointestinal: reports: No Symptoms Genitourinary: reports: No Symptoms Musculoskeletal: reports: Muscle Weakness Integumentary: reports: No Symptoms Neurological: reports: No Symptoms Hematology/Lymphatic: reports: No Symptoms Psychiatric: reports: Anxiety Physical Examination Vital Signs: Vital Signs Temperature 98.1 F 08/13/16 10:30 Pulse Rate 67 08/13/16 10:30 Respiratory Rate 19 08/13/16 10:30 Blood Pressure 113/57 08/13/16 10:30 O2 Sat by Pulse Oximetry (%) 98 08/13/16 03:01 Constitutional: Yes: Mild Distress Eyes: Yes: WNL HENT: Yes: WNL Neck: Yes: WNL Cardiovascular: Yes: WNL Respiratory: Yes: WNL Gastrointestinal: Yes: WNL Renal/: Yes: WNL Musculoskeletal: Yes: WNL Extremities: Yes: WNL Edema: No Peripheral Pulses WNL: Yes Integumentary: Yes: WNL Wound/Incision: Yes: Clean/Dry Neurological: Yes: WNL ...Motor Strength: WNL Psychiatric: Yes: Agitated Labs: CBC, BMP 08/13/16 06:00 Imaging - Results Chest X-ray: Report Reviewed Problem List - Problems (1) Sustained SVT Code(s): I47.1 - SUPRAVENTRICULAR TACHYCARDIA (2) Troponin I above reference range Code(s): R74.8 - ABNORMAL LEVELS OF OTHER SERUM ENZYMES (3) CAD (coronary artery disease) Code(s): I25.10 - ATHSCL HEART DISEASE OF [place] CORONARY ARTERY W/O ANG PCTRS Qualifiers: Coronary Disease-Associated Artery/Lesion type: unspecified vessel or lesion type Associated angina: with unstable angina (4) COPD (chronic obstructive pulmonary disease) Code(s): J44.9 - CHRONIC OBSTRUCTIVE PULMONARY DISEASE, UNSPECIFIED Qualifiers : COPD type: emphysema Emphysema type: unspecified Qualified Code( s): J43.9 - Emphysema, unspecified (5) Dizziness Code(s): R42 - DIZZINESS AND GIDDINESS Assessment/Plan HEPARIN IV FOR ACUTE TROPONIN WITH ACUTE CORONARY SYNDROME PPI FOR H/O GERD ECHO 2D PENDING CARDIOLOGY EVAL CHECK LABS THYROID DISEASE, WILL NEED TO SLOW DOWN SYNTHROID
[2016-08-13] MEDS: CLOPIDOGREL BISULFATE 75 MG TABLET (FP) PO SCH (20:44)
[2016-08-13] MEDS: ATORVASTATIN CA 20 MG TABLET (FP) PO SCH (21:11)
[2016-08-14] MEDS ORDERED: PT OWN MED DRAWER 7, Y5N ONE ×2 (00:41→09:13)
[2016-08-14] MEDS: HEPARIN - 25,000 UNIT in SODIUM CHLORIDE 495 ML IV SCH (00:43)
[2016-08-14] MEDS: PANTOPRAZOLE 40 MG TABLET (FP) PO SCH ×2 (09:22→22:06)
[2016-08-14] MEDS: ASPIRIN COATED 81 MG TABLET.EC PO SCH (09:22)
[2016-08-14] MEDS: CLOPIDOGREL BISULFATE 75 MG TABLET (FP) PO SCH (09:23)
[2016-08-14] MEDS: METOPROLOL SUCCINATE 25 MG TAB.SR.24H (FP) PO SCH (09:23)
[2016-08-14] MEDS: VENLAFAXINE HCL 37.5 MG E.R. CAPSULE (FP) PO SCH (09:24)
[2016-08-14] MEDS: ALPRAZolam 0.25 MG TABLET PO PRN ×2 (09:34→22:12)
--- NOTE | 2016-08-14 10:54 | PN ---
Progress Note (short form) - Note Progress Note: s: no cp sob palps dizzy o: Vital Signs Period Temp Pulse Resp BP Sys/Phillips Pulse Ox Last 24 Hr 97.9 F-98.1 F 74-84 16-20 97-117/48-58 95-97 nad, calm jvd flat, neck supple ctab, nl effort rrr nl s1, s2 no mrg + bs soft nt nd ext without e/c/c no jaundice, diaphoresis aaox3 Current Medications Generic Name Dose Route Start Last Admin Trade Name Freq PRN Reason Stop Dose Admin Acetaminophen 650 mg 08/12/16 21:13 Tylenol - PO Q6H PRN FEVER OR PAIN Alprazolam 0.5 mg 08/12/16 21:13 08/14/16 09:34 Xanax - PO 0.5 mg Q8H PRN Administration ANXIETY Aspirin 81 mg 08/13/16 10:00 08/14/16 09:22 Ecotrin - PO 81 mg DAILY [place] Administration Atorvastatin Calcium 20 mg 08/12/16 22:00 08/13/16 21:11 Lipitor - PO 20 mg HS [place] Administration Clopidogrel Bisulfate 75 mg 08/13/16 18:45 08/14/16 09:23 Plavix - PO 75 mg DAILY [place] Administration Heparin Sodium (Porcine) 5,000 unit 08/13/16 00:48 Heparin - IVPUSH PRN PRN Heparin Sodium (Porcine) 1,000 unit 08/13/16 00:48 Heparin - IVPUSH PRN PRN Heparin Sodium (Porcine) 25, 500 mls @ 16 mls/hr 08/13/16 01:00 08/14/16 00:43 000 unit/ Sodium Chloride IV 16 mls/hr TITR [place] Administration Protocol 800 UNIT/HR Losartan Potassium 25 mg 08/13/16 18:45 Cozaar - PO DAILY [facility] Metoprolol Succinate 25 mg 08/14/16 10:00 08/14/16 09:23 Toprol Xl - PO 25 mg DAILY [facility] Administration Pantoprazole Sodium 40 mg 08/12/16 22:00 08/14/16 09:22 Protonix - PO 40 mg BID [place] Administration Venlafaxine HCl 37.5 mg 08/13/16 10:00 08/14/16 09:24 Effexor Xr - PO 37.5 mg DAILY [place] Administration CBC, BMP 08/12/16 13:30 08/13/16 06:00 EKG 08/12: nsr, av delay. inferior and anterolateral q waves. bline VINNIE in anterolateral leads slightly more prominent than on priors. No reciprocal changes. tele: sr echo 07/2016: tds, nl lv, rv tds, no sig valve path, rvsp 30-40 a/p: 81 yo wit h/o hypertension, hypercholesterolemia, CAD s/p myocardial infarction/PCI > 10 yrs ago, gastroesophageal reflux disease/ulcers/partial gastrectomy in her 20's now with chronic anemia (last transfusion > 1 yr ago per patient), thyroid disease, anxiety and chronic obstructive pulmonary disease who presents to the emergency department with palpitations/SVT complicated by nstemi. nstemi - likely demand in setting of SVT and known CAD. CK normal. However, slight rise and fall pattern --> agree with ACS treatment with AC x 48 hrs. added plavix. - echo here with nl lvef, no wma's - patient endorses partial gastrectomy in her 20's and subsequent anemia intermittently requiring transfusions (states last transfusion was > 1 year ago) . Denies history of bleeding. Monitor hemoglobin closely with AC. - plan on stress testing for risk stratification tomorrow - on statin, bb added SVT - likely atach from review of EMS strips. - currently no recurrence - con't tele monitoring - added low dose metoprolol for suppression. lowered losartan dose to make bp room. HTN - med adjustments as mentioned HL - statin
--- NOTE | 2016-08-14 11:02 | PN ---
Progress Note, Physician Chief Complaint: AWAKE ALERT DENIES CHEST PAIN - Current Medication List Current Medications: Active Medications Acetaminophen (Tylenol -) 650 mg PO Q6H PRN PRN Reason: FEVER OR PAIN Alprazolam (Xanax -) 0.5 mg PO Q8H PRN PRN Reason: ANXIETY Last Admin: 08/14/16 09:34 Dose: 0.5 mg Aspirin (Ecotrin -) 81 mg PO DAILY [facility] Last Admin: 08/14/16 09:22 Dose: 81 mg Atorvastatin Calcium (Lipitor -) 20 mg PO HS [facility] Last Admin: 08/13/16 21:11 Dose: 20 mg Clopidogrel Bisulfate (Plavix -) 75 mg PO DAILY [facility] Last Admin: 08/14/16 09:23 Dose: 75 mg Heparin Sodium (Porcine) (Heparin -) 5,000 unit IVPUSH PRN PRN Heparin Sodium (Porcine) (Heparin -) 1,000 unit IVPUSH PRN PRN Heparin Sodium (Porcine) 25, (000 unit/ Sodium Chloride) 500 mls @ 16 mls/hr IV TITR [facility]; 800 UNIT/HR PRN Reason: Protocol Last Admin: 08/14/16 00:43 Dose: 16 mls/hr Losartan Potassium (Cozaar -) 25 mg PO DAILY [facility] Metoprolol Succinate (Toprol Xl -) 25 mg PO DAILY [facility] Last Admin: 08/14/16 09:23 Dose: 25 mg Pantoprazole Sodium (Protonix -) 40 mg PO BID [facility] Last Admin: 08/14/16 09:22 Dose: 40 mg Venlafaxine HCl (Effexor Xr -) 37.5 mg PO DAILY [facility] Last Admin: 08/14/16 09:24 Dose: 37.5 mg - Objective Vital Signs: Vital Signs Temperature 98.1 F 08/14/16 09:27 Pulse Rate 80 08/14/16 10:45 Respiratory Rate 20 08/14/16 09:27 Blood Pressure 109/57 08/14/16 09:27 O2 Sat by Pulse Oximetry (%) 96 08/14/16 10:45 Constitutional: Yes: No Distress Eyes: Yes: WNL HENT: Yes: WNL Neck: Yes: WNL Cardiovascular: Yes: WNL Respiratory: Yes: WNL Gastrointestinal: Yes: WNL Genitourinary: Yes: WNL Musculoskeletal: Yes: WNL Extremities: Yes: WNL Edema: No Peripheral Pulses WNL: Yes Integumentary: Yes: WNL Wound/Incision: Yes: Clean/Dry Neurological: Yes: WNL ...Motor Strength: WNL Psychiatric: Yes: Other Labs: CBC, BMP 08/13/16 06:00 INR, PTT INR 0.96 (0.82-1.09) 08/12/16 13:30 Problem List - Problems (1) Sustained SVT Code(s): I47.1 - SUPRAVENTRICULAR TACHYCARDIA (2) Troponin I above reference range Code(s): R74.8 - ABNORMAL LEVELS OF OTHER SERUM ENZYMES (3) CAD (coronary artery disease) Code(s): I25.10 - ATHSCL HEART DISEASE OF [place] CORONARY ARTERY W/O ANG PCTRS Qualifiers: Coronary Disease-Associated Artery/Lesion type: unspecified vessel or lesion type Associated angina: with unstable angina (4) COPD (chronic obstructive pulmonary disease) Code(s): J44.9 - CHRONIC OBSTRUCTIVE PULMONARY DISEASE, UNSPECIFIED Qualifiers : COPD type: emphysema Emphysema type: unspecified Qualified Code( s): J43.9 - Emphysema, unspecified (5) Dizziness Code(s): R42 - DIZZINESS AND GIDDINESS Assessment/Plan STRESS TEST TOMORROW IV HEPARIN 48HRS PLAVIX HIGH RISK GI BLEED B/C OF GI SURGERY IN PAST
[2016-08-14 11:42] LABS: MCH 29.1 pg (25.7-33.7); MCHC 33.3 g/dl (32.0-36.0); MEAN CELL VOLUME 87.3 fl (80-96); MEAN PLT VOLUME 7.3 fl (7.5-11.1); PLATELET COUNT 288 K/MM3 (134-434); RDW 13.3 % (11.6-15.6)
[2016-08-14 12:17] LABS: ALBUMIN 3.1 g/dl (3.4-5.0); ANION GAP 7 (8-16); BILIRUBIN,TOTAL 0.3 mg/dL (0.2-1.0); CO2 26 mmol/L (21-32); CREATININE 0.7 mg/dL (0.55-1.02); GLUCOSE,RANDOM 103 mg/dL (74-106); SGOT/AST 30 U/L (15-37); SGPT/ALT 19 U/L (12-78); TOT PROT 7.1 g/dl (6.4-8.2)
[2016-08-14 12:18] LABS: ALK PHOS 131 U/L (45-117)
[2016-08-14 12:20] LABS: TROPONIN I 0.69 ng/ml (0.00-0.05)
[2016-08-14] MEDS: LOSARTAN POTASSIUM 25 MG TABLET PO SCH (14:02)
[2016-08-14] MEDS: ATORVASTATIN CA 20 MG TABLET (FP) PO SCH (22:06)
--- NOTE | 2016-08-15 01:18 | CONSULT ---
Consult Consult Specialty:: endocrine Referred by:: dr.amir cross Reason for Consultation:: hypothyroidism - History of Present Illness Chief Complaint: palpitations History of Present Illness: 81-year-old woman with a significant past medical history of hypertension, hypercholesterolemia, myocardial infarction status post stent placement, gastroesophageal reflux disease, thyroid disease and chronic obstructive pulmonary disease who presents to the emergency department for further evaluation of palpitations since yesterday. brought to er for palpitation dyspnea,restless,anxious,tremulous,history of hypothyroidism on recent changes of medication has noted feeling restless and anxious she thinks last dose was 137mcg however not sure. - History Source History Provided By: Patient - Past Medical History Cardio/Vascular: Yes: Hyperlipdemia Pulmonary: Yes: COPD ...: No Psych: Yes: Anxiety, Depression Endocrine: Yes: Hypothyroidism - Alcohol/Substance Use Hx Alcohol Use: No - Smoking History Smoking history: Former smoker Have you smoked in the past 12 months: No Aproximately how many cigarettes per day: 0 If you are a former smoker, when did you quit?: 30yrs Home Medications - Allergies Allergies/Adverse Reactions: Allergies Allergy/AdvReac Type Severity Reaction Status Date / Time Penicillins Allergy Severe Swelling Verified 08/12/16 14:41 dicloxacillin [Dicloxacillin] Allergy Intermediate Rash Verified 08/12/16 14:41 - Home Medications Home Medications: Ambulatory Orders Cholecalciferol (Vitamin D3) [Vitamin D] 1,000 unit PO DAILY 06/17/13 Omeprazole 40 mg PO DAILY 06/17/13 Alprazolam [Xanax] 0.5 mg PO HS PRN 07/04/14 Levothyroxine [Synthroid -] 75 mcg PO DAILY 07/04/14 Venlafaxine HCl [Effexor -] 75 mg PO DAILY 07/04/14 Losartan Potassium 50 mg PO DAILY 09/24/15 Venlafaxine HCl ER [Effexor Xr -] 37.5 mg PO DAILY 04/07/16 Aspirin [Ecotrin] 81 mg PO DAILY 08/12/16 Atorvastatin Calcium [Lipitor] 10 mg PO DAILY 08/12/16 Review of Systems - Review of Systems Constitutional: reports: Loss of Appetite, Unintentional Wgt. Loss, Weakness Eyes: reports: No Symptoms HENT: reports: No Symptoms Neck: reports: No Symptoms Cardiovascular: reports: Palpitations Respiratory: reports: Exercise Intolerance, SOB on Exertion Gastrointestinal: reports: Constipation Breasts: reports: No Symptoms Reported Musculoskeletal: reports: No Symptoms Integumentary: reports: No Symptoms Neurological: reports: Tremors, Weakness Endocrine: reports: Unexplained Weight Loss Physical Exam Vital Signs: Vital Signs Temperature 97.2 F L 08/14/16 22:00 Pulse Rate 93 H 08/14/16 22:00 Respiratory Rate 18 08/14/16 22:00 Blood Pressure 121/71 08/14/16 22:00 O2 Sat by Pulse Oximetry (%) 96 08/14/16 10:45 Constitutional: Yes: Anxious Eyes: Yes: EOM Intact HENT: Yes: WNL Neck: Yes: Trachea Midline, Thyromegaly Cardiovascular: Yes: Regular Rate and Rhythm Respiratory: Yes: CTA Bilaterally Gastrointestinal: Yes: Normal Bowel Sounds ...Rectal Exam: Yes: Deferred Renal/: Yes: WNL Breast(s): Yes: WNL Musculoskeletal: Yes: WNL Extremities: Yes: WNL Neurological: Yes: Alert, Oriented, Tremors ...Motor Strength: WNL Psychiatric: Yes: Alert, Oriented Labs: CBC, BMP 08/14/16 11:20 08/14/16 11:20 Problem List - Problems (1) Sustained SVT Code(s): I47.1 - SUPRAVENTRICULAR TACHYCARDIA (2) Hyperthyroidism Code(s): E05.90 - THYROTOXICOSIS, UNSP WITHOUT THYROTOXIC CRISIS OR STORM (3) Hyperthyroidism with Theron disease Code(s): E05.80 - OTHER THYROTOXICOSIS WITHOUT THYROTOXIC CRISIS OR STORM E06.3 - AUTOIMMUNE THYROIDITIS Assessment/Plan Current Active Problems Sustained SVT (Acute) Troponin I above reference range (Acute) theron with hyperthyroid state excess t4 given recent changes with symptoms of palpitations Abnormal Lab Results 08/14/16 08/14/16 08/14/16 06:20 11:20 11:20 MPV 7.3 L PTT (Actin FS) 62.1 H Anion Gap 7 L Alkaline Phosphatase 131 H Troponin I 0.69 H* Albumin 3.1 L Laboratory Results - last 24 hr 08/14/16 08/14/16 08/14/16 06:20 11:20 11:20 WBC 6.0 D RBC 4.46 Hgb 13.0 Hct 39.0 MCV 87.3 MCHC 33.3 RDW 13.3 Plt Count 288 MPV 7.3 L PTT (Actin FS) 62.1 H Sodium 137 Potassium 4.5 Chloride 104 Carbon Dioxide 26 Anion Gap 7 L BUN 11 Creatinine 0.7 Creat Clearance w eGFR > 60 Random Glucose 103 Calcium 9.0 Total Bilirubin 0.3 D AST 30 D ALT 19 Alkaline Phosphatase 131 H Creatine Kinase 77 Troponin I 0.69 H* Total Protein 7.1 Albumin 3.1 L Laboratory Tests 08/12/16 08/13/16 13:30 06:00 TSH < 0.01 L Free T4 1.13 plan: stop synthroid repeat tfts once tsh improves will resume t4 with low dose synthroid gentle titration
[2016-08-15] MEDS ORDERED: PT OWN MED DRAWER 7, Y5N ONE (07:00)
[2016-08-15] MEDS: HEPARIN - 25,000 UNIT in SODIUM CHLORIDE 495 ML IV SCH (07:01)
[2016-08-15] MEDS: ALPRAZolam 0.25 MG TABLET PO PRN (08:04)
[2016-08-15] MEDS: METOPROLOL SUCCINATE 25 MG TAB.SR.24H (FP) PO SCH (08:59)
[2016-08-15] MEDS ORDERED: DEXTROSE 5% IVPB ONE ×2 (10:00→10:35)
[2016-08-15] MEDS ORDERED: DIPYRIDAMOLE STRESS TEST IVPB ONE ×2 (10:00→10:35)
[2016-08-15] MEDS ORDERED: WATER IVPB ONE ×2 (10:00→10:35)
[2016-08-15] MEDS: CLOPIDOGREL BISULFATE 75 MG TABLET (FP) PO SCH (13:27)
[2016-08-15] MEDS: ASPIRIN COATED 81 MG TABLET.EC PO SCH (13:27)
[2016-08-15] MEDS: LOSARTAN POTASSIUM 25 MG TABLET PO SCH (13:27)
[2016-08-15] MEDS: PANTOPRAZOLE 40 MG TABLET (FP) PO SCH (13:27)
[2016-08-15] MEDS: VENLAFAXINE HCL 37.5 MG E.R. CAPSULE (FP) PO SCH (13:28)
--- NOTE | 2016-08-15 13:44 | PN ---
Progress Note (short form) - Note Progress Note: s: no cp sob palps dizzy o: Vital Signs Period Temp Pulse Resp BP Sys/Phillips Pulse Ox Last 24 Hr 97.2 F-98.7 F 85-103 16-18 98-126/59-80 94-94 nad, calm jvd flat, neck supple ctab, nl effort rrr nl s1, s2 no mrg + bs soft nt nd ext without e/c/c no jaundice, diaphoresis aaox3 Current Medications Generic Name Dose Route Start Last Admin Trade Name Freq PRN Reason Stop Dose Admin Acetaminophen 650 mg 08/12/16 21:13 Tylenol - PO Q6H PRN FEVER OR PAIN Alprazolam 0.5 mg 08/12/16 21:13 08/15/16 08:04 Xanax - PO 0.5 mg Q8H PRN Administration ANXIETY Aspirin 81 mg 08/13/16 10:00 08/15/16 13:27 Ecotrin - PO 81 mg DAILY IS[place]EL Administration Atorvastatin Calcium 20 mg 08/12/16 22:00 08/14/16 22:06 Lipitor - PO 20 mg HS ISRAEL Administration Clopidogrel Bisulfate 75 mg 08/13/16 18:45 08/15/16 13:27 Plavix - PO 75 mg DAILY IS[place]EL Administration Heparin Sodium (Porcine) 5,000 unit 08/13/16 00:48 Heparin - IVPUSH PRN PRN Heparin Sodium (Porcine) 1,000 unit 08/13/16 00:48 Heparin - IVPUSH PRN PRN Heparin Sodium (Porcine) 25, 500 mls @ 16 mls/hr 08/13/16 01:00 08/15/16 08:59 000 unit/ Sodium Chloride IV 800 unit/hr TITR ISRAEL Titration Protocol 800 UNIT/HR Losartan Potassium 25 mg 08/13/16 18:45 08/15/16 13:27 Cozaar - PO 25 mg DAILY IS[place] Administration Metoprolol Succinate 25 mg 08/14/16 10:00 08/15/16 08:59 Toprol Xl - PO 25 mg DAILY [place] Administration Pantoprazole Sodium 40 mg 08/12/16 22:00 08/15/16 13:27 Protonix - PO 40 mg BID IS[place]EL Administration Venlafaxine HCl 37.5 mg 08/13/16 10:00 08/15/16 13:28 Effexor Xr - PO 37.5 mg DAILY [place] Administration Laboratory Last Values WBC 6.0 K/mm3 (4.0-10.0) D 08/14/16 11:20 RBC 4.46 M/mm3 (3.60-5.2) 08/14/16 11:20 Hgb 13.0 GM/dL (10.7-15.3) 08/14/16 11:20 Hct 39.0 % (32.4-45.2) 08/14/16 11:20 MCV 87.3 fl (80-96) 08/14/16 11:20 MCHC 33.3 g/dl (32.0-36.0) 08/14/16 11:20 RDW 13.3 % (11.6-15.6) 08/14/16 11:20 Plt Count 288 K/MM3 (134-434) 08/14/16 11:20 MPV 7.3 fl (7.5-11.1) L 08/14/16 11:20 Neutrophils % 79.9 % (42.8-82.8) 08/12/16 13:30 Lymphocytes % 11.1 % (8-40) D 08/12/16 13:30 Monocytes % 7.3 % (3.8-10.2) 08/12/16 13:30 Eosinophils % 1.2 % (0-4.5) D 08/12/16 13:30 Basophils % 0.5 % (0-2.0) 08/12/16 13:30 INR 0.96 (0.82-1.09) 08/12/16 13:30 PTT (Actin FS) 56.5 SECONDS (26.9-34.4) H 08/15/16 05:35 Sodium 137 mmol/L (136-145) 08/14/16 11:20 Potassium 4.5 mmol/L (3.5-5.1) 08/14/16 11:20 Chloride 104 mmol/L (98-107) 08/14/16 11:20 Carbon Dioxide 26 mmol/L (21-32) 08/14/16 11:20 Anion Gap 7 (8-16) L 08/14/16 11:20 BUN 11 mg/dL (7-18) 08/14/16 11:20 Creatinine 0.7 mg/dL (0.55-1.02) 08/14/16 11:20 Creat Clearance w eGFR > 60 (>60) 08/14/16 11:20 Random Glucose 103 mg/dL (74-106) 08/14/16 11:20 Hemoglobin A1c % 5.5 % (4.8-6.0) 08/13/16 06:00 Calcium 9.0 mg/dL (8.5-10.1) 08/14/16 11:20 Magnesium 2.2 mg/dL (1.8-2.4) 08/12/16 13:30 Total Bilirubin 0.3 mg/dL (0.2-1.0) D 08/14/16 11:20 AST 30 U/L (15-37) D 08/14/16 11:20 ALT 19 U/L (12-78) 08/14/16 11:20 Alkaline Phosphatase 131 U/L (45-117) H 08/14/16 11:20 Creatine Kinase 77 IU/L (26-192) 08/14/16 11:20 Troponin I 0.69 ng/ml (0.00-0.05) H* 08/14/16 11:20 Total Protein 7.1 g/dl (6.4-8.2) 08/14/16 11:20 Albumin 3.1 g/dl (3.4-5.0) L 08/14/16 11:20 Triglycerides 119 mg/dL (35-160) 08/13/16 06:00 Cholesterol 153 mg/dL (50-200) 08/13/16 06:00 Total LDL Cholesterol 81 mg/dL (5-100) 08/13/16 06:00 HDL Cholesterol 62 mg/dL (40-60) H 08/13/16 06:00 TSH < 0.01 uIU/ml (0.358-3.74) L 08/12/16 13:30 Free T4 1.13 ng/dl (0.76-1.46) 08/13/16 06:00 Stool Occult Blood Negative (NEGATIVE) 08/12/16 17:50 EKG 08/12: nsr, av delay. inferior and anterolateral q waves. bline VINNIE in anterolateral leads slightly more prominent than on priors. No reciprocal changes. tele: sr echo 07/2016: tds, nl lv, rv tds, no sig valve path, rvsp 30-40 mibi 08/2016: no scar/ischemia, nl lvef a/p: 81 yo wit h/o hypertension, hypercholesterolemia, CAD s/p myocardial infarction/PCI > 10 yrs ago, gastroesophageal reflux disease/ulcers/partial gastrectomy in her 20's now with chronic anemia (last transfusion > 1 yr ago per patient), thyroid disease, anxiety and chronic obstructive pulmonary disease who presents to the emergency department with palpitations/SVT complicated by nstemi. nstemi - likely demand in setting of SVT and known CAD. CK normal. However, slight rise and fall pattern --> agree with ACS treatment with AC x 48 hrs. added plavix. - echo here with nl lvef, no wma's - on statin, bb added - nuclear stress test today shows no ischemia - has completed 48 hrs AC, can now dc, cont asa/plavix, other cardiac meds SVT - likely atach from review of EMS strips. - currently no recurrence - added low dose metoprolol for suppression. lowered losartan dose to make bp room. HTN - med adjustments as mentioned HL - statin cardiac mcintyre stable for dc
[2016-08-15 15:40] VITALS: BP 112/66; PULSE 79; TEMP 98.3
== END 2016-08-15 15:55 | disposition home or self-care (01) | DRG 281 ==
LOC: JER 14:20 → JERBED 18:08 → J4S 23:24
PROVIDERS: ADMIT Family Medicine; ATTEND Family Medicine
DX: I21.4 Non-ST elevation (NSTEMI) myocardial infarction (principal); I47.1 Supraventricular tachycardia; I10 Essential (primary) hypertension; E78.5 Hyperlipidemia, unspecified; K21.9 Gastro-esophageal reflux disease without esophagitis; I25.10 Atherosclerotic heart disease of native coronary artery without angina pectoris; J44.9 Chronic obstructive pulmonary disease, unspecified; F41.8 Other specified anxiety disorders; E03.9 Hypothyroidism, unspecified; D64.9 Anemia, unspecified; E53.8 Deficiency of other specified B group vitamins; Z95.5 Presence of coronary angioplasty implant and graft; Z87.891 Personal history of nicotine dependence
CPT/HCPCS: 36415; 71010-TC; 78452-TC; 80048; 80053; 80061; 82272; 82550; 83036; 83721; 83735; 84439; 84443; 84484; 85025; 85027; 85610; 85730; 93005; 93010; 93017; 93306-TC; 99285-25; A9502; J1245; J1644

== ENCOUNTER 2016-08-28 11:37 | Inpatient (IN) | payer OTHER ==
[2016-08-28] MEDS ORDERED: PANTOPRAZOLE SODIUM 40 MG in SODIUM CHLORIDE 100 ML IVPB ONE (12:20)
[2016-08-28] MEDS ORDERED: FAMOTIDINE 20 MG/50 ML IVPB 50 ML IVPB ONE ×2 (12:20→12:24)
[2016-08-28] MEDS ORDERED: PANTOPRAZOLE SODIUM 40 MG VIAL ONE ×2 (12:24→17:11)
[2016-08-28 12:28] LABS: BASOPHIL 0.3 % (0-2.0); EOSINOPHIL 0.4 % (0-4.5); MCH 29.1 pg (25.7-33.7); MCHC 32.9 g/dl (32.0-36.0); MEAN CELL VOLUME 88.4 fl (80-96); NEUTROPHILS 87.8 % (42.8-82.8); PLATELET COUNT 327 K/MM3 (134-434); RDW 14.3 % (11.6-15.6); WHITE BLOOD COUNT 12.8 K/mm3 (4.0-10.0)
--- NOTE | 2016-08-28 12:43 | PDOC ---
History of Present Illness - General History Source: Patient Exam Limitations: No Limitations - History of Present Illness Initial Comments: 08/28/16 12:43 The patient is a 81 year old female, with a significant past medical history of HTN, hypercholesterolemia, NH s/p stent placement, GERD, thyroid disease, and COPD, who presents to the emergency department with weakness and palpitations. Patient was here recently in with similar complaints. She reports feeling her normal baseline since her last ER visit. She reports recently being taken off her thyroid medication, due to palpitations, and has had varying levels of her thyroid. She reports having continued palpitations with any movement or activity. She also notes having significant weakness in her leg being unable to get up at times. She notes also yesterday having black stool. She denies recent fevers, chills, headache or dizziness. She denies recent dysuria, frequency, urgency or hematuria. She denies recent chest pain or shortness of breath. Allergies: See Nursing Notes. Past surgical history: None reported. Social history: Former smoker. Denies EtOH use and recreational drug use. Primary Care Physician: Dr.Ammir Crespo <Edson Wiseman - Last Filed: 08/28/16 12:43> - General History Source: Patient, Old Records Exam Limitations: No Limitations <Leon Reilly - Last Filed: 08/29/16 08:29> - General Chief Complaint: Palpitations Stated Complaint: WEAKNESS Time Seen by Provider: 08/28/16 11:51 Past History <Edson Wiseman - Last Filed: 08/28/16 12:43> - Past Medical History Anemia: Yes Asthma: No Cancer: No Cardiac Disorders: Yes (NH 10 year ago 1 stent) CVA: No COPD: Yes (H/O PNEUMONIA) CHF: No Dementia: No Diabetes: No GI Disorders: Yes (ACID REFLUX) Disorders: No HTN: Yes Hypercholesterolemia: Yes Liver Disease: No Seizures: No Thyroid Disease: Yes - Surgical History Abdominal Surgery: Yes (PARTIAL GASTRECTOMY) Appendectomy: Yes Cardiac Surgery: Yes (stent) Cholecystectomy: Yes Lung Surgery: Yes Neurologic Surgery: No Orthopedic Surgery: No - Psycho/Social/Smoking Cessation Hx Anxiety: No Suicidal Ideation: No Smoking Status: Yes Smoking History: Former smoker Have you smoked in the past 12 months: No Number of Cigarettes Smoked Daily: 0 If you are a former smoker, when did you quit?: 35 YRS AGO Information on smoking cessation initiated: No Hx Alcohol Use: No Drug/Substance Use Hx: No Substance Use Type: None Hx Substance Use Treatment: No <Leno Reilly - Last Filed: 08/29/16 08:29> - Past Medical History Allergies/Adverse Reactions: Allergies Allergy/AdvReac Type Severity Reaction Status Date / Time Penicillins Allergy Severe Swelling Verified 08/28/16 11:47 dicloxacillin [Dicloxacillin] Allergy Intermediate Rash Verified 08/28/16 11:47 Home Medications: Ambulatory Orders Cholecalciferol (Vitamin D3) [Vitamin D] 2,000 unit PO DAILY 06/17/13 Losartan Potassium 50 mg PO DAILY 09/24/15 Aspirin [Ecotrin] 81 mg PO DAILY 08/12/16 Atorvastatin Calcium [Lipitor] 10 mg PO DAILY 08/12/16 Aspirin Coated [Ecotrin -] 81 mg PO DAILY #30 tab 08/15/16 Clopidogrel Bisulfate [Plavix -] 75 mg PO DAILY #30 tablet 08/15/16 Metoprolol Succinate [Toprol XL -] 25 mg PO DAILY #30 tab 08/15/16 Alprazolam [Xanax] 0.5 mg PO TID PRN 08/28/16 Sucralfate [Carafate -] 1 gm PO QID 08/28/16 Venlafaxine HCl [Effexor -] 75 mg PO BID 08/28/16 Review of Systems - Review of Systems Able to Perform ROS?: Yes Comments:: 08/28/16 12:43 GENERAL/CONSTITUTIONAL: No fever or chills. +weakness. HEAD, EYES, EARS, NOSE AND THROAT: No change in vision. No ear pain or discharge. No sore throat. CARDIOVASCULAR: +palpitations. No chest pain or shortness of breath. RESPIRATORY: No cough, wheezing, or hemoptysis. GASTROINTESTINAL: +black stool. No nausea, vomiting, diarrhea or constipation. GENITOURINARY: No dysuria, frequency, or change in urination. MUSCULOSKELETAL: No joint or muscle swelling or pain. No neck or back pain. SKIN: No rash NEUROLOGIC: No headache, vertigo, loss of consciousness, or change in strength/ sensation. ENDOCRINE: No increased thirst. No abnormal weight change. HEMATOLOGIC/LYMPHATIC: No anemia, easy bleeding, or history of blood clots. ALLERGIC/IMMUNOLOGIC: No hives or skin allergy. <Edson Wiseman - Last Filed: 08/28/16 12:43> *Physical Exam - Vital Signs Last Vital Signs Temp Pulse Resp BP Pulse Ox 97.1 F L 90 18 124/59 100 08/28/16 11:45 08/28/16 11:45 08/28/16 11:45 08/28/16 11:45 08/28/16 11:45 - Physical Exam Comments: 08/28/16 12:43 GENERAL: Awake, alert, and fully oriented, in no acute distress HEAD: No signs of trauma EYES: PERRLA, EOMI, sclera anicteric, conjunctiva clear ENT: Auricles normal inspection, hearing grossly normal, nares patent, oropharynx clear without exudates. Moist mucosa NECK: Normal ROM, supple, no lymphadenopathy, JVD, or masses LUNGS: Breath sounds equal, clear to auscultation bilaterally. No wheezes, and no crackles RECTAL: External hemorrids. HEART: Regular rate and rhythm, normal S1 and S2, no murmurs, rubs or gallops ABDOMEN: Soft, nontender, normoactive bowel sounds. No guarding, no rebound. No masses EXTREMITIES: Normal range of motion, no edema. No clubbing or cyanosis. No cords, erythema, or tenderness NEUROLOGICAL: Cranial nerves II through XII grossly intact. Normal speech, normal gait SKIN: Warm, Dry, normal turgor, no rashes or lesions noted. <Edson Wiseman - Last Filed: 08/28/16 12:43> - Vital Signs Last Vital Signs Temp Pulse Resp BP Pulse Ox 97.1 F L 90 18 124/59 100 08/28/16 11:45 08/28/16 11:45 08/28/16 11:45 08/28/16 11:45 08/28/16 11:45 <Leon Reilly - Last Filed: 08/29/16 08:29> Heart Score/ECG Review #1 ECG reviewed & interpreted by me at: 12:00 08/28/16 12:39 NSR 88 with 1st degree AV block, left axis deviation, TWI I, II, new TWI V2-V5, no yury/std, QTC 505 msec <Leon Reilly - Last Filed: 08/29/16 08:29> ED Treatment Course - LABORATORY CBC & Chemistry Diagram: 08/28/16 12:13 08/28/16 12:13 <Edson Wiseman - Last Filed: 08/28/16 12:43> - LABORATORY CBC & Chemistry Diagram: 08/29/16 05:45 08/29/16 05:45 - RADIOLOGY Radiology Studies Ordered: Category Date Time Status CHEST X-RAY PORTABLE* [RAD] Stat Radiology 08/28/16 12:11 Taken <Leon Reilly - Last Filed: 08/29/16 08:29> Medical Decision Making - Critical Care Time Total Critical Care Time (minutes): 35 Critical Care Statement: The care of this patient involved high complexity decision making to prevent further life threatening deterioration of the patient 's condition and/or to evalute & treat vital organ system(s) failure or risk of failure. - Medical Decision Making 08/28/16 12:39 A portion of this note was documented by scribe services under my direction. I have reviewed the details of the note, within reason, and agree with the documentation with the following case summary and management plan written by me. Patient treated in the ED. Nursing notes are reviewed and incorporated into the medical decision-making. Vital signs reviewed. Peripheral IV access obtained by the nurse, laboratory studies are drawn and sent, reviewed and interpreted by myself. Vital Signs Temp Pulse Resp BP Pulse Ox 97.1 F L 90 18 124/59 100 08/28/16 11:45 08/28/16 11:45 08/28/16 11:45 08/28/16 11:45 08/28/16 11:45 81-year-old female with past medical history of GERD, coronary disease, history of NH, hypothyroidism, anemia, anxiety, COPD, hypertension, hyperlipidemia presents with generalized weakness and palpitations. The patient was recently admitted at the end of July 2016 for palpitations which is found to be SVT. Patient had elevated troponins which was thought to be secondary to demand ischemia. Had a stress test which was unremarkable. Patient was discharged. The patient was subsequently discontinued off the Synthroid as it was potentially thought the Synthroid contributing to her SVT. However, last 2 days, the patient was started to develop generalized weakness and fatigue. Started noticing that even cooking was causing her to feel weak. When she sits up, she feels palpitations which improves with lying down. She denies recent illnesses fevers, chills, cough, vomiting, diarrhea. However did report one episode of melanotic appearing stools. Has also developed a mild epigastric discomfort. Denies chest pain. Patient did have blood work performed as an outpatient 2 days ago which demonstrated very low thyroid levels. It may potentially be hypothyroidism can shooting to her symptoms. However, with the dark stools, we will need to rule out upper GI bleed. We'll give her Protonix. Anemia may be continuing to her weakness as well. EKG does demonstrate new findings in the precordial leads with new T-wave inversions concerning for acute cord syndrome or NH. We'll need to send troponin. Ultimately, the patient needs to be admitted to the hospital for further evaluation. 08/28/16 15:53 CBC, BMP 08/28/16 12:13 08/28/16 12:13 CMP Sodium 137 mmol/L (136-145) 08/28/16 12:13 Potassium 4.3 mmol/L (3.5-5.1) 08/28/16 12:13 Chloride 106 mmol/L (98-107) 08/28/16 12:13 Carbon Dioxide 21 mmol/L (21-32) 08/28/16 12:13 Anion Gap 10 (8-16) 08/28/16 12:13 BUN 32 mg/dL (7-18) H D 08/28/16 12:13 Creatinine 0.7 mg/dL (0.55-1.02) 08/28/16 12:13 Creat Clearance w eGFR > 60 (>60) 08/28/16 12:13 Random Glucose 90 mg/dL (74-106) 08/28/16 12:13 Calcium 8.2 mg/dL (8.5-10.1) L 08/28/16 12:13 Total Bilirubin 0.4 mg/dL (0.2-1.0) D 08/28/16 12:13 AST 19 U/L (15-37) D 08/28/16 12:13 ALT 16 U/L (12-78) 08/28/16 12:13 Alkaline Phosphatase 90 U/L (45-117) D 08/28/16 12:13 Creatine Kinase 41 IU/L (26-192) 08/28/16 12:13 Troponin I 0.04 ng/ml (0.00-0.05) 08/28/16 12:13 Total Protein 6.3 g/dl (6.4-8.2) L 08/28/16 12:13 Albumin 3.0 g/dl (3.4-5.0) L 08/28/16 12:13 TSH 20.10 uIU/ml (0.358-3.74) H D 08/28/16 12:13 Free T4 0.34 ng/dl (0.76-1.46) L D 08/28/16 12:13 Stool occult negative. 08/28/16 16:01 The patient is noted to have multiple issues going on here the patient is noted to be hypothyroid as well as anemic as well as inverted T waves. The patient may have accommodation of symptomatical anemia of hypothyroid is contributing to her weakness. Patient was discussed risks and benefits of blood transfusion. She was given 1 unit of PRBCs. Given these multiple findings, I spoken to the patient's admitting doctor, Dr. Tan who accepted the patient and requested ICU. I had spoke to Dr. Garsia who agrees with ICU admission. Case discussed in detail with admitting physician including history, physical exam and ancillary studies. Admitting physician has assumed care for the patient, will follow all pending diagnostics and will complete the evaluation and treatment. <Leon Reilly - Last Filed: 08/29/16 08:29> *DC/Admit/Observation/Transfer - Attestations Scribe Attestion: 08/28/16 12:44 Documentation prepared by Edson Wiseman, acting as medical clinic manager for Leon Reilly MD. <Edson Wiseman - Last Filed: 08/28/16 12:43> - Discharge Dispostion Admit: Yes <Leon Reilly - Last Filed: 08/29/16 08:29> Diagnosis at time of Disposition: Abnormal ECG Anemia Qualifiers: Anemia type: other cause Other causes of anemia: other cause, not classified Qualified Code(s): D64.89 - Other specified anemias Hypothyroidism Qualifiers: Hypothyroidism type: unspecified Qualified Code(s): E03.9 - Hypothyroidism, unspecified - Referrals
[2016-08-28 12:56] LABS: ANION GAP 10 (8-16); CALCIUM 8.2 mg/dL (8.5-10.1); CO2 21 mmol/L (21-32); CREATININE 0.7 mg/dL (0.55-1.02); GLUCOSE,RANDOM 90 mg/dL (74-106); SGPT/ALT 16 U/L (12-78)
--- NOTE | 2016-08-28 13:00 | EKG ---
Test Reason : Blood Pressure : / mmHG Vent. Rate : 088 BPM Atrial Rate : 088 BPM P-R Int : 222 ms QRS Dur : 064 ms QT Int : 418 ms P-R-T Axes : 066 -35 081 degrees QTc Int : 505 ms SINUS RHYTHM WITH 1ST DEGREE A-V BLOCK LEFT AXIS DEVIATION ANTERIOR INFARCT (CITED ON OR BEFORE 07-APR-2016) T WAVE ABNORMALITY, CONSIDER LATERAL ISCHEMIA ABNORMAL ECG WHEN COMPARED WITH ECG OF 13-AUG-2016 09:15, SIGNIFICANT CHANGES HAVE OCCURRED Confirmed by NIGEL NAJERA, PRESTON ([id number]) on 08/28/2016 1:00:41 PM Referred By: Confirmed By:PRESTON MANNING MD
[2016-08-28 13:01] LABS: INR 0.97 (0.82-1.09); PROTHROMBIN TIME (PATIENT) 10.7 SEC (9.98-11.88)
[2016-08-28 13:04] LABS: ACTIVATED PTT 29.2 SECONDS (26.9-34.4)
[2016-08-28 13:06] LABS: ALK PHOS 90 U/L (45-117); BILIRUBIN,TOTAL 0.4 mg/dL (0.2-1.0); SGOT/AST 19 U/L (15-37); TOT PROT 6.3 g/dl (6.4-8.2); TROPONIN I 0.04 ng/ml (0.00-0.05)
[2016-08-28 13:12] LABS: FREE T4 0.34 ng/dl (0.76-1.46)
[2016-08-28 13:59] LABS: STOOL FOR OCCULT BLOOD NEGATIVE (NEGATIVE)
[2016-08-28] MEDS ORDERED: PANTOPRAZOLE SODIUM 80 MG in SODIUM CHLORIDE 100 ML IVPB SCH (16:00)
[2016-08-28 18:12] VITALS: BMI 25.1
--- NOTE | 2016-08-28 19:21 | CON.CARD ---
Cardiology Consult (text) - Consultation Consultation Note: CC: svt, nstemi 81 yo wit h/o hypertension, hypercholesterolemia, CAD s/p myocardial infarction/ PCI > 10 yrs ago, gastroesophageal reflux disease/ulcers/partial gastrectomy in her 20's (unable to absorb iron/on iron infusions) now with chronic anemia ( last transfusion > 1 yr ago per patient), thyroid disease, anxiety and chronic obstructive pulmonary disease who presents with weakness, palps. Recent d/c at beginning of month. had troponin elevation/nstemi thought to be 2 /2 demand. Stress testing was negative at that time. Discharged on asa, plavix. Acute recurrence of severe palps with associated weakness over the past couple of days. + dark stool --> progressing to black stool. She denies fever, chills, sweats, cough, n/v/d, headache, rashes. . She denies chest pain, diaphoresis, shortness of breath, lightheadedness, syncope, orthopnea, pnd, le edema or transient neurologic symptoms. cards: Dr. Domingo PMHx/Past Surgical History: per hpi, Stent placement. Partial gastectomy. Prior lung surgery, Appendectomy. Cholecystesctomy. Social History: Former smoker. No EtOH and recreational drug use. fam hx: no hx of arrhythmia. ros: per hpi Ambulatory Orders Cholecalciferol (Vitamin D3) [Vitamin D] 2,000 unit PO DAILY 06/17/13 Losartan Potassium 50 mg PO DAILY 09/24/15 Aspirin [Ecotrin] 81 mg PO DAILY 08/12/16 Atorvastatin Calcium [Lipitor] 10 mg PO DAILY 08/12/16 Aspirin Coated [Ecotrin -] 81 mg PO DAILY #30 tab 08/15/16 Clopidogrel Bisulfate [Plavix -] 75 mg PO DAILY #30 tablet 08/15/16 Metoprolol Succinate [Toprol XL -] 25 mg PO DAILY #30 tab 08/15/16 Alprazolam [Xanax] 0.5 mg PO TID PRN 08/28/16 Sucralfate [Carafate -] 1 gm PO QID 08/28/16 Venlafaxine HCl [Effexor -] 75 mg PO BID 08/28/16 Current Medications Pantoprazole Sodium 80 mg/ (Sodium Chloride) 100 mls @ 10 mls/hr IVPB Q10H ISRA[place] PRN Reason: 8 MG/HR Last Admin: 08/28/16 17:30 Dose: 10 mls/hr Vital Signs - 24 hr 08/28/16 08/28/16 08/28/16 11:45 14:45 15:00 Temperature 97.1 F L Pulse Rate 90 Pulse Rate [ 64 95 H Radial] Respiratory 18 18 16 Rate Blood Pressure 124/59 Blood Pressure 104/67 110/69 [Left Arm] O2 Sat by Pulse 100 99 100 Oximetry (%) 08/28/16 08/28/16 08/28/16 17:25 18:04 18:35 Temperature 98 F Pulse Rate 88 Pulse Rate [ 91 H Radial] Respiratory 16 20 Rate Blood Pressure 155/76 Blood Pressure 98/66 [Left Arm] O2 Sat by Pulse 99 98 Oximetry (%) Intake & Output 08/26/16 08/27/16 08/28/16 08/29/16 07:59 07:59 07:59 07:59 Weight 124 lb 5.451 oz nad, calm jvd flat, neck supple ctab, nl effort rrr nl s1, s2 no mrg + bs soft nt nd ext without e/c/c + dp/pt no jaundice, diaphoresis aaox3 CBC, BMP 08/28/16 12:13 08/28/16 12:13 Laboratory Tests 08/13/16 08/13/16 08/28/16 06:00 06:00 12:13 INR 0.97 Hemoglobin A1c % 5.5 Total Bilirubin AST ALT Alkaline Phosphatase Creatine Kinase 112 Troponin I 2.35 H* Albumin Triglycerides 119 Cholesterol 153 Total LDL Cholesterol 81 HDL Cholesterol 62 H TSH Free T4 1.13 08/28/16 12:13 INR Hemoglobin A1c % Total Bilirubin 0.4 D AST 19 D ALT 16 Alkaline Phosphatase 90 D Creatine Kinase 41 Troponin I 0.04 Albumin 3.0 L Triglycerides Cholesterol Total LDL Cholesterol HDL Cholesterol TSH 20.10 H D Free T4 0.34 L D EKG: nsr, av delay. lad. poor r wave progression. lae. diffuse t wave flattening/TWI. tele: sr CXR without pulm congestion. chronic ateletasis of RUL, (fissure displaced upwards) echo 07/2016: tds, nl lv, rv tds, no sig valve path, rvsp 30-40 mibi 08/2016: no scar/ischemia, nl lvef a/p: 81 yo wit h/o hypertension, hypercholesterolemia, CAD s/p myocardial infarction/PCI > 10 yrs ago, gastroesophageal reflux disease/ulcers/partial gastrectomy in her 20's (unable to absorb iron/on iron infusions) now with chronic anemia (last transfusion > 1 yr ago per patient), thyroid disease, anxiety and chronic obstructive pulmonary disease who presents with weakness, palps. CAD - h/o PCI > 10 years ago. Recent troponin elevation/nstemi thought to be 2/2 demand. no ischemia on mibi. - ok to stop plavix in light of significant hemoglobin drop after starting dapt. ongoing anemia work up per gi/pmd. - recent echo here with nl lvef, no wma's - resume ASA when ok per GI. resume statin, resume bb once bp stabilizes. SVT - HR's controlled here. In SR - resume bb once bp stabilizes. - mgm't of thyroid abnormalities perp . HTN - currently running low, add back regimen as needed. HL - statin
--- NOTE | 2016-08-28 20:40 | CON.GI ---
Consult Consult Specialty:: GI Referred by:: Dr Tan Reason for Consultation:: Anemia - History of Present Illness Chief Complaint: Weakness, fatigue and palpitations History of Present Illness: 81 F well-known to our service, with h/o HTN, HLD, CAD, [place] s/p stent placement, hypothyroid, COPD admitted with c/o fatigue and palpitations. She states she hasn't taken her thyroid meds recently. She is comfortable at this time and is not dyspneic. She has a long h/o anemia which is due to randy-gastrectomy 20 years ago. She is unable to absorb Fe and receives Fe infusions 2 x per month ( [facility]). She has been on B12 in the past but not clear if she has pernicious anemia. Hgb is usually between 8-9. - History Source History Provided By: Patient, Medical Record Limitations to Obtaining History: No Limitations - Past Medical History Cardio/Vascular: Yes: CAD, HTN, Hyperlipdemia, [place] Pulmonary: Yes: COPD Gastrointestinal: Yes: GI Bleed Psych: Yes: Anxiety, Depression Endocrine: Yes: Hypothyroidism - Alcohol/Substance Use Hx Alcohol Use: No - Smoking History Smoking history: Former smoker Have you smoked in the past 12 months: No Aproximately how many cigarettes per day: 0 If you are a former smoker, when did you quit?: 35 YRS AGO Home Medications - Allergies Allergies/Adverse Reactions: Allergies Allergy/AdvReac Type Severity Reaction Status Date / Time Penicillins Allergy Severe Swelling Verified 08/28/16 11:47 dicloxacillin [Dicloxacillin] Allergy Intermediate Rash Verified 08/28/16 11:47 - Home Medications Home Medications: Ambulatory Orders Cholecalciferol (Vitamin D3) [Vitamin D] 2,000 unit PO DAILY 06/17/13 Losartan Potassium 50 mg PO DAILY 09/24/15 Aspirin [Ecotrin] 81 mg PO DAILY 08/12/16 Atorvastatin Calcium [Lipitor] 10 mg PO DAILY 08/12/16 Aspirin Coated [Ecotrin -] 81 mg PO DAILY #30 tab 08/15/16 Clopidogrel Bisulfate [Plavix -] 75 mg PO DAILY #30 tablet 08/15/16 Metoprolol Succinate [Toprol XL -] 25 mg PO DAILY #30 tab 08/15/16 Alprazolam [Xanax] 0.5 mg PO TID PRN 08/28/16 Sucralfate [Carafate -] 1 gm PO QID 08/28/16 Venlafaxine HCl [Effexor -] 75 mg PO BID 08/28/16 Physical Exam-GI Vital Signs: Vital Signs Temperature 98 F 08/28/16 18:04 Pulse Rate 88 08/28/16 18:04 Respiratory Rate 20 08/28/16 18:04 Blood Pressure 155/76 08/28/16 18:04 O2 Sat by Pulse Oximetry (%) 98 08/28/16 18:35 Constitutional: Yes: Well Nourished, Calm HENT: Yes: Atraumatic, Normocephalic Neck: Yes: Supple Cardiovascular: Yes: Regular Rate and Rhythm Respiratory: Yes: CTA Bilaterally Gastrointestinal Inspection: Yes: WNL ...Auscultate: Yes: Normoactive Bowel Sounds ...Palpate: Yes: Soft. No: Tenderness ...Percussion: Yes: Dullness Labs: INR, PTT INR 0.97 (0.82-1.09) 08/28/16 12:13 CBC, BMP 08/28/16 12:13 08/28/16 12:13 Hepatic Panel Total Bilirubin 0.4 mg/dL (0.2-1.0) D 08/28/16 12:13 AST 19 U/L (15-37) D 08/28/16 12:13 ALT 16 U/L (12-78) 08/28/16 12:13 Alkaline Phosphatase 90 U/L (45-117) D 08/28/16 12:13 Albumin 3.0 g/dl (3.4-5.0) L 08/28/16 12:13 Assessment/Plan 81 F with above history admitted with weakness and fatigue. Hgb at baseline and stool guaiac negative-no evidence of GI bleed Poor candidate for procedures at this time Transfuse as needed to Hgb no >9 Continue IV Fe as outpatient
--- NOTE | 2016-08-28 21:18 | CONSULT ---
Consult Consult Specialty:: CCM Reason for Consultation:: palpitations, anemia - History of Present Illness Chief Complaint: "my heart was racing" History of Present Illness: This is a 81yo woman with anxiety, COPD, HTN, CAD s/p PCI (~1999), GERD, chronic anemia receiving iron infusions as out patient, hypothyroid (med recently held by PMD) who presented to ED with palpitations: high heart rate w/ o CP. In the ED she was noted to be anemia w/ Hgb 7.7 (baseline ~8). Patient reported questionable black stool. PPI gtt started, PRBC x1 given and patient admitted to ICU. Cardiology was consulted, Guaiac negative. She was seen by GI and felt low likelihood of GI bleed and PPI drip stopped. - History Source History Provided By: Patient, Medical Record Limitations to Obtaining History: No Limitations - Past Medical History Cardio/Vascular: Yes: CAD, HTN, Hyperlipdemia, [place] Pulmonary: Yes: COPD Gastrointestinal: Yes: GI Bleed Psych: Yes: Anxiety, Depression Endocrine: Yes: Hypothyroidism - Alcohol/Substance Use Hx Alcohol Use: No - Smoking History Smoking history: Former smoker Have you smoked in the past 12 months: No Aproximately how many cigarettes per day: 0 If you are a former smoker, when did you quit?: 35 YRS AGO Home Medications - Allergies Allergies/Adverse Reactions: Allergies Allergy/AdvReac Type Severity Reaction Status Date / Time Penicillins Allergy Severe Swelling Verified 08/28/16 11:47 dicloxacillin [Dicloxacillin] Allergy Intermediate Rash Verified 08/28/16 11:47 - Home Medications Home Medications: Ambulatory Orders Cholecalciferol (Vitamin D3) [Vitamin D] 2,000 unit PO DAILY 06/17/13 Losartan Potassium 50 mg PO DAILY 09/24/15 Aspirin [Ecotrin] 81 mg PO DAILY 08/12/16 Atorvastatin Calcium [Lipitor] 10 mg PO DAILY 08/12/16 Aspirin Coated [Ecotrin -] 81 mg PO DAILY #30 tab 08/15/16 Clopidogrel Bisulfate [Plavix -] 75 mg PO DAILY #30 tablet 08/15/16 Metoprolol Succinate [Toprol XL -] 25 mg PO DAILY #30 tab 08/15/16 Alprazolam [Xanax] 0.5 mg PO TID PRN 08/28/16 Sucralfate [Carafate -] 1 gm PO QID 08/28/16 Venlafaxine HCl [Effexor -] 75 mg PO BID 08/28/16 Review of Systems - Review of Systems Cardiovascular: reports: Palpitations Physical Exam Vital Signs: Vital Signs Temperature 98 F 08/28/16 18:04 Pulse Rate 90 08/28/16 20:00 Respiratory Rate 23 08/28/16 20:00 Blood Pressure 120/65 08/28/16 20:00 O2 Sat by Pulse Oximetry (%) 98 08/28/16 18:35 Constitutional: Yes: No Distress, Calm Eyes: Yes: EOM Intact Cardiovascular: Yes: Regular Rate and Rhythm, S1, S2 Respiratory: Yes: CTA Bilaterally Gastrointestinal: Yes: Normal Bowel Sounds, Soft Edema: No Neurological: Yes: Alert, Oriented Labs: CBCD WBC 12.8 K/mm3 (4.0-10.0) H D 08/28/16 12:13 RBC 2.66 M/mm3 (3.60-5.2) L D 08/28/16 12:13 Hgb 7.7 GM/dL (10.7-15.3) L D 08/28/16 12:13 Hct 23.5 % (32.4-45.2) L D 08/28/16 12:13 MCV 88.4 fl (80-96) 08/28/16 12:13 MCHC 32.9 g/dl (32.0-36.0) 08/28/16 12:13 RDW 14.3 % (11.6-15.6) 08/28/16 12:13 Plt Count 327 K/MM3 (134-434) 08/28/16 12:13 MPV 7.0 fl (7.5-11.1) L 08/28/16 12:13 CMP Sodium 137 mmol/L (136-145) 08/28/16 12:13 Potassium 4.3 mmol/L (3.5-5.1) 08/28/16 12:13 Chloride 106 mmol/L (98-107) 08/28/16 12:13 Carbon Dioxide 21 mmol/L (21-32) 08/28/16 12:13 Anion Gap 10 (8-16) 08/28/16 12:13 BUN 32 mg/dL (7-18) H D 08/28/16 12:13 Creatinine 0.7 mg/dL (0.55-1.02) 08/28/16 12:13 Creat Clearance w eGFR > 60 (>60) 08/28/16 12:13 Random Glucose 90 mg/dL (74-106) 08/28/16 12:13 Calcium 8.2 mg/dL (8.5-10.1) L 08/28/16 12:13 Total Bilirubin 0.4 mg/dL (0.2-1.0) D 08/28/16 12:13 AST 19 U/L (15-37) D 08/28/16 12:13 ALT 16 U/L (12-78) 08/28/16 12:13 Alkaline Phosphatase 90 U/L (45-117) D 08/28/16 12:13 Total Protein 6.3 g/dl (6.4-8.2) L 08/28/16 12:13 Albumin 3.0 g/dl (3.4-5.0) L 08/28/16 12:13 CARDIAC ENZYMES Creatine Kinase 41 IU/L (26-192) 08/28/16 12:13 Troponin I 0.04 ng/ml (0.00-0.05) 08/28/16 12:13 Laboratory Tests 08/28/16 12:13 TSH 20.10 H D Free T4 0.34 L D Imaging - Results Chest X-ray: Report Reviewed, Image Reviewed EKG: Report Reviewed, Image Reviewed Problem List - Problems (1) Anemia Code(s): D64.9 - ANEMIA, UNSPECIFIED Qualifiers: Anemia type: other cause Other causes of anemia: other cause, not classified Qualified Code(s): D64.89 - Other specified anemias (2) Hypothyroidism Code(s): E03.9 - HYPOTHYROIDISM, UNSPECIFIED Qualifiers: Hypothyroidism type: unspecified Qualified Code(s): E03.9 - Hypothyroidism, unspecified (3) CAD (coronary artery disease) Code(s): I25.10 - ATHSCL HEART DISEASE OF [place] CORONARY ARTERY W/O ANG PCTRS Qualifiers: Coronary Disease-Associated Artery/Lesion type: unspecified vessel or lesion type Associated angina: with unstable angina (4) COPD (chronic obstructive pulmonary disease) Code(s): J44.9 - CHRONIC OBSTRUCTIVE PULMONARY DISEASE, UNSPECIFIED Qualifiers : COPD type: emphysema Emphysema type: unspecified Qualified Code( s): J43.9 - Emphysema, unspecified Assessment/Plan 81 yo woman with MMP: anxiety, COPD, HTN, CAD s/p PCI (~2006), GERD, chronic anemia receiving iron infusions as out patient, hypothyroid (med recently held by PMD) who presented to ED with palpitations likely r/t thyroid disorder -anemia is chronic, no signs of GIB -normal transfusion thresholds for hgb >7.0 -Cards following -GI following -advance diet -DVT prophylaxis -restart home meds --will defer to cardiology but can likely come off plavix given stent >15yrs old and chronic anemia -Endocrine consult for thyroid management -ok to transfer to floor Grazyna AQUINO CCT: 35m
[2016-08-28] MEDS ORDERED: ATORVASTATIN CA 10 MG TABLET (FP) PO SCH (22:00)
[2016-08-28] MEDS ORDERED: PT OWN MED DRAWER 7, Y5N ONE (22:13)
[2016-08-28] MEDS: ALPRAZolam 0.25 MG TABLET PO PRN (22:39)
[2016-08-28] MEDS: VENLAFAXINE HCL 75 MG TABLET PO SCH (22:39)
[2016-08-29 06:37] LABS: MCH 30.3 pg (25.7-33.7); MCHC 33.8 g/dl (32.0-36.0); MEAN CELL VOLUME 89.6 fl (80-96); MEAN PLT VOLUME 6.9 fl (7.5-11.1); PLATELET COUNT 306 K/MM3 (134-434); RDW 15.1 % (11.6-15.6); WHITE BLOOD COUNT 7.7 K/mm3 (4.0-10.0)
[2016-08-29 07:16] LABS: CALCIUM 8.5 mg/dL (8.5-10.1); CREATININE 0.8 mg/dL (0.55-1.02)
[2016-08-29 07:20] LABS: TROPONIN I 0.04 ng/ml (0.00-0.05)
--- NOTE | 2016-08-29 07:41 | HP ---
Admitting History and Physical - Admission History of Present Illness: 81 year old female, with a significant past medical history of HTN, hypercholesterolemia, [place] s/p stent placement, GERD, thyroid disease, and COPD, who presents to the emergency department with weakness and palpitations. Patient was here recently in with similar complaints. She reports feeling her normal baseline since her last ER visit. She reports recently being taken off her thyroid medication, due to palpitations, and has had varying levels of her thyroid. She reports having continued palpitations with any movement or activity. She also notes having significant weakness in her leg being unable to get up at times. She notes also yesterday having black stool. She denies recent fevers, chills, headache or dizziness. She denies recent dysuria, frequency, urgency or hematuria. She denies recent chest pain or shortness of breath. - Past Medical History Cardiovascular: Yes: CAD, HTN, Hyperlipdemia, [place] Pulmonary: Yes: COPD Gastrointestinal: Yes: GI Bleed Heme/Onc: Yes: Anemia, B12 Deficiency Psych: Yes: Anxiety, Depression Endocrine: Yes: Hypothyroidism - Advance Directives Advance Directives: Yes: Living Will - Smoking History Smoking history: Former smoker Have you smoked in the past 12 months: No Aproximately how many cigarettes per day: 0 If you are a former smoker, when did you quit?: 35 YRS AGO - Alcohol/Substance Use Hx Alcohol Use: No Home Medications - Allergies Allergies/Adverse Reactions: Allergies Allergy/AdvReac Type Severity Reaction Status Date / Time Penicillins Allergy Severe Swelling Verified 08/28/16 11:47 dicloxacillin [Dicloxacillin] Allergy Intermediate Rash Verified 08/28/16 11:47 - Home Medications Home Medications: Ambulatory Orders Cholecalciferol (Vitamin D3) [Vitamin D] 2,000 unit PO DAILY 06/17/13 Losartan Potassium 50 mg PO DAILY 09/24/15 Aspirin [Ecotrin] 81 mg PO DAILY 08/12/16 Atorvastatin Calcium [Lipitor] 10 mg PO DAILY 08/12/16 Aspirin Coated [Ecotrin -] 81 mg PO DAILY #30 tab 08/15/16 Clopidogrel Bisulfate [Plavix -] 75 mg PO DAILY #30 tablet 08/15/16 Metoprolol Succinate [Toprol XL -] 25 mg PO DAILY #30 tab 08/15/16 Alprazolam [Xanax] 0.5 mg PO TID PRN 08/28/16 Sucralfate [Carafate -] 1 gm PO QID 08/28/16 Venlafaxine HCl [Effexor -] 75 mg PO BID 08/28/16 Review of Systems - Review of Systems Constitutional: reports: Malaise Cardiovascular: denies: Chest Pain Respiratory: denies: SOB Gastrointestinal: denies: Abdominal Pain Physical Examination Vital Signs: Vital Signs Temperature 97.8 F 08/29/16 06:00 Pulse Rate 76 08/29/16 07:27 Respiratory Rate 18 08/29/16 07:27 Blood Pressure 100/52 08/29/16 07:27 O2 Sat by Pulse Oximetry (%) 96 08/29/16 07:31 Cardiovascular: Yes: Regular Rate and Rhythm Respiratory: Yes: Regular, CTA Bilaterally Gastrointestinal: Yes: Normal Bowel Sounds, Soft Edema: No Neurological: Yes: Alert, Oriented Labs: CBC, BMP 08/29/16 05:45 08/29/16 05:45 Problem List - Problems (1) Anemia Assessment/Plan: S/P PRBC FOLLOW LABS GI ON CASE HOLD ASA AND PLAVIX Code(s): D64.9 - ANEMIA, UNSPECIFIED Qualifiers: Anemia type: other cause Other causes of anemia: other cause, not classified Qualified Code(s): D64.89 - Other specified anemias (2) Hypothyroidism Assessment/Plan: RESUME SYNTHROID 50 ENDO Code(s): E03.9 - HYPOTHYROIDISM, UNSPECIFIED Qualifiers: Hypothyroidism type: unspecified Qualified Code(s): E03.9 - Hypothyroidism, unspecified (3) CAD (coronary artery disease) Assessment/Plan: CARDIO ON CASE HOLD ASA AND PLAVIX Code(s): I25.10 - ATHSCL HEART DISEASE OF [place] CORONARY ARTERY W/O ANG PCTRS Qualifiers: Coronary Disease-Associated Artery/Lesion type: unspecified vessel or lesion type Associated angina: with unstable angina (4) COPD (chronic obstructive pulmonary disease) Assessment/Plan: NEBS Code(s): J44.9 - CHRONIC OBSTRUCTIVE PULMONARY DISEASE, UNSPECIFIED Qualifiers : COPD type: emphysema Emphysema type: unspecified Qualified Code( s): J43.9 - Emphysema, unspecified (5) GI bleed Assessment/Plan: FOLLOW HGB S/P PRBC GI--?ENDOSCOPY Code(s): K92.2 - GASTROINTESTINAL HEMORRHAGE, UNSPECIFIED
[2016-08-29] MEDS ORDERED: PT OWN MED DRAWER 7, Y5N ONE ×2 (08:39→09:09)
[2016-08-29] MEDS: VENLAFAXINE HCL 75 MG TABLET PO SCH ×2 (09:15→22:17)
[2016-08-29] MEDS: ALPRAZolam 0.25 MG TABLET PO PRN ×2 (09:39→22:17)
[2016-08-29] MEDS ORDERED: LOSARTAN POTASSIUM 50 MG TABLET (FP) PO SCH (10:00)
[2016-08-29] MEDS ORDERED: CLOPIDOGREL BISULFATE 75 MG TABLET (FP) PO SCH (10:00)
[2016-08-29] MEDS ORDERED: HEPARIN NA (PORCINE) 5,000 UNITS/ML 1ML VIAL SQ SCH ×2 (10:00→22:00)
[2016-08-29] MEDS ORDERED: ASPIRIN COATED 81 MG TABLET.EC PO SCH (10:00)
[2016-08-29] MEDS ORDERED: PANTOPRAZOLE SODIUM 100 ML IVPB SCH (10:00)
--- NOTE | 2016-08-29 11:03 | PN ---
Physical Exam: SUBJECTIVE: Patient seen and examined. She is still feeling weak. The pt denies chest pain, SOB, headache. She refused Heparin this morning. OBJECTIVE: Vital Signs Period Temp Pulse Resp BP Sys/Phillips Pulse Ox Last 24 Hr 97.8 F-98.2 F 72-91 16-23 85-155/47-76 96-99 GENERAL: The patient is awake, alert, and fully oriented, in no acute distress, sleeping comfortably HEAD: Normal with no signs of trauma. EYES: extraocular movements intact, sclera anicteric, conjunctiva clear, no ptosis, no exophtalmos. ENT: oropharynx clear without exudates, moist mucous membranes. NECK: Trachea midline, full range of motion, supple, no thyromegaly. LUNGS: clear to auscultation bilaterally, no wheezes, no crackles, no accessory muscle use. HEART: Regular rate and rhythm, S1, S2 without murmur, rub or gallop. ABDOMEN: Soft, nontender, nondistended, normoactive bowel sounds, no guarding, no rebound, no hepatosplenomegaly, no masses. EXTREMITIES: warm, no edema. NEUROLOGICAL: Normal speech, gait not observed, DTRs decreased in knee b/l, brachioradialis nl b/l, motor 5/5, no sensation changes. PSYCH: Normal mood, normal affect. SKIN: Warm, dry, normal turgor, no rashes or lesions noted Laboratory Results - last 24 hr 08/29/16 08/29/16 05:45 05:45 WBC 7.7 D RBC 3.05 L Hgb 9.2 L D Hct 27.3 L D MCV 89.6 MCHC 33.8 RDW 15.1 Plt Count 306 MPV 6.9 L Sodium 138 Potassium 4.0 Chloride 105 Carbon Dioxide 24 Anion Gap 9 BUN 25 H D Creatinine 0.8 Random Glucose 101 Calcium 8.5 Creatine Kinase 51 Troponin I 0.04 Active Medications Generic Name Dose Route Start Last Admin Trade Name Freq PRN Reason Stop Dose Admin Alprazolam 0.5 mg 08/28/16 21:11 08/29/16 09:39 Xanax - PO 0.5 mg Q8H PRN Administration ANXIETY Aspirin 81 mg 08/29/16 10:00 08/29/16 09:15 Ecotrin - PO 81 mg DAILY [place] Administration Atorvastatin Calcium 10 mg 08/28/16 22:00 08/28/16 22:39 Lipitor - PO 10 mg HS [place] Administration Heparin Sodium (Porcine) 5,000 unit 08/29/16 10:00 08/29/16 09:16 Heparin - SQ Not Given BID [place] Pantoprazole Sodium 100 mls @ 200 mls/hr 08/29/16 10:00 08/29/16 09:16 Protonix 40mg Ivpb (Pre-Docked) IVPB 200 mls/hr DAILY [place] Administration Metoprolol Succinate 25 mg 08/29/16 22:15 Toprol Xl - PO DAILY [place] Venlafaxine HCl 75 mg 08/28/16 22:00 08/29/16 09:15 Effexor - PO 75 mg BID [place] Administration ASSESSMENT/PLAN: 81 yo with history of hypertension, HDL, CAD s/p myocardial infarction/PCI > 10 yrs ago, gastroesophageal reflux disease/ulcers/partial gastrectomy in her 20's (unable to absorb iron/on iron infusions) now with chronic anemia (last transfusion > 1 yr ago per patient), thyroid disease, anxiety and chronic obstructive pulmonary disease who presents with weakness, palpitations for 2-3 days. Hypothyroidism -the pt was on Synthroid in the past but her PCP told her to decrease her meds recently -TSH 20, free T4 0.34, free T3 0.4 -will add lipid panel to tomorrow's labs -ordered endocrinology consultation, the pt requested seeing Dr Servin CAD -troponin elevation/nstemi recently most likely due to demand -hold Plavix as per Cardiology -recent echo nl lvef -cont ASA, statin, resume bb chronic anemia: -Hg stable today 9.2, will repeat CBC -will monitor -GI consulted, no recommendation for endoscopy now -FOBT negative, will repeat GI bleeding -as per pt she had black stool before coming to the hospital -FOBT neg -GI consulted, will f/u recommendations h/o SVT -HR's controlled, sinus rhythm -cont beta blockers HTN - monitor, cont bb HDL - cont. statin Disposition: transfer to telemetry Problem List - Problems (1) Anemia Code(s): D64.9 - ANEMIA, UNSPECIFIED Qualifiers: Anemia type: other cause Other causes of anemia: other cause, not classified Qualified Code(s): D64.89 - Other specified anemias (2) Hypothyroidism Code(s): E03.9 - HYPOTHYROIDISM, UNSPECIFIED Qualifiers: Hypothyroidism type: unspecified Qualified Code(s): E03.9 - Hypothyroidism, unspecified (3) CAD (coronary artery disease) Code(s): I25.10 - ATHSCL HEART DISEASE OF [place] CORONARY ARTERY W/O ANG PCTRS Qualifiers: Coronary Disease-Associated Artery/Lesion type: unspecified vessel or lesion type Associated angina: with unstable angina (4) COPD (chronic obstructive pulmonary disease) Code(s): J44.9 - CHRONIC OBSTRUCTIVE PULMONARY DISEASE, UNSPECIFIED Qualifiers : COPD type: emphysema Emphysema type: unspecified Qualified Code( s): J43.9 - Emphysema, unspecified (5) Troponin I above reference range Code(s): R74.8 - ABNORMAL LEVELS OF OTHER SERUM ENZYMES Visit type - Emergency Visit Emergency Visit: Yes ED Registration Date: 08/28/16 Care time: The patient presented to the Emergency Department on the above date and was hospitalized for further evaluation of their emergent condition. - New Patient This patient is new to me today: Yes Date on this admission: 08/29/16 - Critical Care Critical Care patient: Yes Total Critical Care Time (in minutes): 45 Critical Care Statement: The care of this patient involved high complexity decision making to prevent further life threatening deterioration of the patient 's condition and/or to evalute & treat vital organ system(s) failure or risk of failure.
--- NOTE | 2016-08-29 12:09 | PN ---
Teaching Attending Note Name of Resident: Marlee Barajas ATTENDING PHYSICIAN STATEMENT I saw and evaluated the patient. I reviewed the resident's note and discussed the case with the resident. I agree with the resident's findings and plan as documented. SUBJECTIVE: Pt seen and examined in the ICU. No shortness of breath or chest pain. No palpitations. No bleeding noted overnight. s/p 1 unit PRBC transfusion with appropriate response in H/H. OBJECTIVE: Last Vital Signs Temp Pulse Resp BP Pulse Ox 97.8 F 72 18 95/54 96 08/29/16 06:00 08/29/16 10:05 08/29/16 10:05 08/29/16 10:05 08/29/16 07:31 Intake & Output 08/26/16 08/27/16 08/28/16 08/29/16 23:59 23:59 23:59 23:59 Intake Total 150 330 Balance 150 330 Weight 124 lb 5.451 oz 117 lb 3.2 oz Gen: NAD at rest Heart: RRR Lung: decreased breath sounds at the bases Abd: soft, nontender Ext: no edema CBC, BMP 08/29/16 05:45 08/29/16 05:45 Active Medications Alprazolam (Xanax -) 0.5 mg PO Q8H PRN PRN Reason: ANXIETY Aspirin (Ecotrin -) 81 mg PO DAILY [place] Atorvastatin Calcium (Lipitor -) 10 mg PO HS [place] Heparin Sodium (Porcine) (Heparin -) 5,000 unit SQ BID [place] Pantoprazole Sodium (Protonix 40mg Ivpb (Pre-Docked)) 100 mls @ 200 mls/hr IVPB DAILY [place] Metoprolol Succinate (Toprol Xl -) 25 mg PO DAILY [place] Venlafaxine HCl (Effexor -) 75 mg PO BID [place] ASSESSMENT AND PLAN: Anemia s/p PRBC transfusion Hypothyroidism HTN CAD COPD GERD - monitor H/H - continue cardiac meds - pt requesting Dr. Servin for endocrinology - OOB to chair - pt refusing heparin prophylaxis - can monitor on floor
[2016-08-29] MEDS ORDERED: LEVOTHYROXINE NA 50 MCG TABLET (FP) PO ONE (12:26)
[2016-08-29] MEDS ORDERED: ALPRAZolam 0.25 MG TABLET PO PRN (12:28)
--- NOTE | 2016-08-29 18:07 | CONSULT ---
Consult - text type - Consultation Consultation Note: The patient is a 81 year old female, with a significant past medical history of HTN, hypercholesterolemia, MN s/p stent placement, GERD, thyroid disease, and COPD, who presents to the emergency department with weakness and palpitations. Patient was here recently in with similar complaints. She reports recently being taken off her thyroid medication, due to palpitations, and has had varying levels of her thyroid. She reports having continued palpitations with any movement or activity. She also notes having significant weakness in her leg being unable to get up at times. She notes also yesterday having black stool. She denies recent fevers, chills, headache or dizziness. She denies recent dysuria, frequency, urgency or hematuria. She denies recent chest pain or shortness of breath. Allergies: See Nursing Notes. Past surgical history: None reported. Social history: Former smoker. Denies EtOH use and recreational drug use. - Past Medical History Anemia: Yes Cardiac Disorders: Yes (MN 10 year ago 1 stent) COPD: Yes (H/O PNEUMONIA) GI Disorders: Yes (ACID REFLUX) HTN: Yes Hypercholesterolemia: Yes Thyroid Disease: Yes - Surgical History Abdominal Surgery: Yes (PARTIAL GASTRECTOMY) Appendectomy: Yes Cardiac Surgery: Yes (stent) Cholecystectomy: Yes Lung Surgery: Yes - Psycho/Social/Smoking Cessation Hx Smoking History: Former smoker Allergies/Adverse Reactions: Allergies Allergy/AdvReac Type Severity Reaction Status Date / Time Penicillins Allergy Severe Swelling Verified 08/28/16 11:47 dicloxacillin [Dicloxacillin] Allergy Intermediate Rash Verified 08/28/16 11:47 Home Medications: Ambulatory Orders Cholecalciferol (Vitamin D3) [Vitamin D] 2,000 unit PO DAILY 06/17/13 Losartan Potassium 50 mg PO DAILY 09/24/15 Aspirin [Ecotrin] 81 mg PO DAILY 08/12/16 Atorvastatin Calcium [Lipitor] 10 mg PO DAILY 08/12/16 Aspirin Coated [Ecotrin -] 81 mg PO DAILY #30 tab 08/15/16 Clopidogrel Bisulfate [Plavix -] 75 mg PO DAILY #30 tablet 08/15/16 Metoprolol Succinate [Toprol XL -] 25 mg PO DAILY #30 tab 08/15/16 Alprazolam [Xanax] 0.5 mg PO TID PRN 08/28/16 Sucralfate [Carafate -] 1 gm PO QID 08/28/16 Venlafaxine HCl [Effexor -] 75 mg PO BID 08/28/16 Active Medications Generic Name Dose Route Start Last Admin Trade Name Freq PRN Reason Stop Dose Admin Alprazolam 0.5 mg 08/29/16 10:57 Xanax - PO Q8H PRN ANXIETY Alprazolam 0.5 mg 08/29/16 12:28 Xanax - PO TID PRN ANXIETY Aspirin 81 mg 08/30/16 10:00 Ecotrin - PO DAILY [place] Atorvastatin Calcium 10 mg 08/29/16 22:00 Lipitor - PO HS [place] Heparin Sodium (Porcine) 5,000 unit 08/29/16 22:00 Heparin - SQ BID [place] Pantoprazole Sodium 100 mls @ 200 mls/hr 08/30/16 10:00 Protonix 40mg Ivpb (Pre-Docked) IVPB DAILY [place] Levothyroxine Sodium 50 mcg 08/30/16 07:00 Synthroid - PO DAILY@0700 [place] Venlafaxine HCl 75 mg 08/29/16 22:00 Effexor - PO BID [place] - Vital Signs Last Vital Signs Temp Pulse Resp BP Pulse Ox 97.1 F L 90 18 124/59 100 08/28/16 11:45 08/28/16 11:45 08/28/16 11:45 08/28/16 11:45 08/28/16 11:45 Cor: RSR, No murmurs, No gallops Lungs: Clear to P&A Abd: Soft, Normal bowel sounds, No organomegaly Ext:No significant edema Skin: No rashes, Integument intact Abnormal Lab Results 08/28/16 08/29/16 08/29/16 12:11 05:45 05:45 RBC 3.05 L Hgb 9.2 L D Hct 27.3 L D MPV 6.9 L BUN 25 H D Free T3 0.4 L A/P 81-year-old female with past medical history of GERD, coronary disease, history of MN, hypothyroidism, anemia, anxiety, COPD, hypertension, hyperlipidemia presents with generalized weakness and palpitations. The patient was recently admitted at the end of July 2016 for palpitations which is found to be SVT. Patient had elevated troponins which was thought to be secondary to demand ischemia. Had a stress test which was unremarkable. Patient was discharged. The patient was subsequently discontinued off the Synthroid as it was potentially thought the Synthroid contributing to her SVT. However, last 2 days, the patient was started to develop generalized weakness and fatigue. Started noticing that even cooking was causing her to feel weak. When she sits up, she feels palpitations which improves with lying down. She denies recent illnesses fevers, chills, cough, vomiting, diarrhea. However did report one episode of melanotic stools. Has also developed a mild epigastric discomfort. Denies chest pain. Also just started plavix in addition to long termASA , 2 weeks ago. Also Hgb dropped fro 13 to 7.7 in 2weeks. stool occult neg. but given clinical scenario suspect occult bleeding/iron defciency recheck CBC check iron studies/B12/folate will redose iv iron based on iron studies Hypothyroid --to restart synthroid
--- NOTE | 2016-08-29 18:17 | PN ---
Progress Note (short form) - Note Progress Note: CC: svt, nstemi S: BP running lower overnight and today. Patient endorses intermittent dizziness. Otherwise denies complaints. No bleeding/dark stool. no cp, palps, dizziness, sob. Current Medications Alprazolam (Xanax -) 0.5 mg PO Q8H PRN PRN Reason: ANXIETY Alprazolam (Xanax -) 0.5 mg PO TID PRN PRN Reason: ANXIETY Aspirin (Ecotrin -) 81 mg PO DAILY [place] Atorvastatin Calcium (Lipitor -) 10 mg PO HS [place] Heparin Sodium (Porcine) (Heparin -) 5,000 unit SQ BID [place] Pantoprazole Sodium (Protonix 40mg Ivpb (Pre-Docked)) 100 mls @ 200 mls/hr IVPB DAILY [place] Levothyroxine Sodium (Synthroid -) 50 mcg PO DAILY@0700 [place] Venlafaxine HCl (Effexor -) 75 mg PO BID [facility] Vital Signs - 24 hr 08/28/16 08/28/16 08/28/16 18:35 20:00 21:00 Temperature Pulse Rate 90 Respiratory 23 20 Rate Blood Pressure 120/65 O2 Sat by Pulse 98 98 Oximetry (%) 08/28/16 08/29/16 08/29/16 22:58 00:00 02:00 Temperature 98.2 F 98.2 F Pulse Rate 82 80 74 Respiratory 20 22 22 Rate Blood Pressure 108/59 107/53 96/53 O2 Sat by Pulse Oximetry (%) 08/29/16 08/29/16 08/29/16 04:00 06:00 07:27 Temperature 97.8 F Pulse Rate 82 78 76 Respiratory 20 18 18 Rate Blood Pressure 85/47 100/52 100/52 O2 Sat by Pulse Oximetry (%) 08/29/16 08/29/16 08/29/16 07:31 08:00 10:05 Temperature Pulse Rate 78 72 Respiratory 18 18 Rate Blood Pressure 107/52 95/54 O2 Sat by Pulse 96 Oximetry (%) 08/29/16 08/29/16 08/29/16 12:00 13:20 14:00 Temperature 98 F 97.8 F Pulse Rate 82 88 Respiratory 18 18 18 Rate Blood Pressure 104/62 105/51 108/62 O2 Sat by Pulse Oximetry (%) 08/29/16 16:00 Temperature Pulse Rate 86 Respiratory 18 Rate Blood Pressure 111/66 O2 Sat by Pulse Oximetry (%) Intake & Output 08/27/16 08/28/16 08/29/16 08/30/16 07:59 07:59 07:59 07:59 Intake Total 380 700 Balance 380 700 Weight 117 lb 3.2 oz nad, calm jvd flat, neck supple ctab, nl effort rrr nl s1, s2 no mrg + bs soft nt nd ext without e/c/c + dp/pt no jaundice, diaphoresis aaox3 CBC, BMP 08/29/16 05:45 08/29/16 05:45 EKG: nsr, av delay. lad. poor r wave progression. lae. diffuse t wave flattening/TWI. tele: sr CXR without pulm congestion. chronic ateletasis of RUL, (fissure displaced upwards) echo 07/2016: tds, nl lv, rv tds, no sig valve path, rvsp 30-40 mibi 08/2016: no scar/ischemia, nl lvef a/p: 81 yo wit h/o hypertension, hypercholesterolemia, CAD s/p myocardial infarction/PCI > 10 yrs ago, gastroesophageal reflux disease/ulcers/partial gastrectomy in her 20's (unable to absorb iron/on iron infusions) now with chronic anemia (last transfusion > 1 yr ago per patient), thyroid disease, anxiety and chronic obstructive pulmonary disease who presents with weakness, palps. CAD - h/o PCI > 10 years ago. Recent troponin elevation/nstemi thought to be 2/2 demand. no ischemia on mibi. - ok to stop plavix in light of significant hemoglobin drop after starting dapt. ongoing anemia work up per gi/pmd. - recent echo here with nl lvef, no wma's - would con't to hold ASA today in light of hypotension and ongoing anemia work up. resumed statin, resume bb once bp stabilizes. SVT - HR's controlled here. In SR - resume bb once bp stabilizes. - mgm't of thyroid abnormalities per pmd. HTN - currently running low, add back regimen as needed. Repeat CBC this afternoon in light of ongoing low bp's. HL - statin anemia - eval/mgm't per pmd/GI/heme
[2016-08-29 21:50] LABS: BASOPHIL 0.4 % (0-2.0); EOSINOPHIL 4.7 % (0-4.5); MCH 30.4 pg (25.7-33.7); MCHC 33.6 g/dl (32.0-36.0); MEAN CELL VOLUME 90.4 fl (80-96); NEUTROPHILS 75.6 % (42.8-82.8); PLATELET COUNT 285 K/MM3 (134-434); RDW 14.8 % (11.6-15.6)
[2016-08-29] MEDS ORDERED: METOPROLOL SUCCINATE 25 MG TAB.SR.24H (FP) PO SCH ×2 (22:15)
[2016-08-29] MEDS: ATORVASTATIN CA 10 MG TABLET (FP) PO SCH (22:17)
[2016-08-30] MEDS: LEVOTHYROXINE NA 50 MCG TABLET (FP) PO SCH (06:25)
[2016-08-30 06:34] LABS: MCH 30.5 pg (25.7-33.7); MCHC 33.4 g/dl (32.0-36.0); MEAN CELL VOLUME 91.4 fl (80-96); MEAN PLT VOLUME 7.1 fl (7.5-11.1); PLATELET COUNT 328 K/MM3 (134-434); RDW 15.3 % (11.6-15.6)
[2016-08-30 06:56] LABS: FERRITIN 10.845 ng/ml (6.9-282.5)
[2016-08-30 06:57] LABS: ANION GAP 7 (8-16); BILIRUBIN,TOTAL 0.3 mg/dL (0.2-1.0); CALCIUM 8.6 mg/dL (8.5-10.1); CO2 27 mmol/L (21-32); CREATININE 0.8 mg/dL (0.55-1.02); GLUCOSE,RANDOM 97 mg/dL (74-106); LDH 146 U/L (84-246); SGOT/AST 25 U/L (15-37); SGPT/ALT 19 U/L (12-78); TOT PROT 6.4 g/dl (6.4-8.2)
[2016-08-30 07:21] LABS: ALK PHOS 95 U/L (45-117)
--- NOTE | 2016-08-30 08:45 | PN ---
Progress Note, Physician History of Present Illness: no complaints - Current Medication List Current Medications: Active Medications Alprazolam (Xanax -) 0.5 mg PO Q8H PRN PRN Reason: ANXIETY Last Admin: 08/29/16 22:17 Dose: 0.5 mg Alprazolam (Xanax -) 0.5 mg PO TID PRN PRN Reason: ANXIETY Aspirin (Ecotrin -) 81 mg PO DAILY [place] Atorvastatin Calcium (Lipitor -) 10 mg PO HS [facility] Last Admin: 08/29/16 22:17 Dose: 10 mg Pantoprazole Sodium (Protonix 40mg Ivpb (Pre-Docked)) 100 mls @ 200 mls/hr IVPB DAILY [place] Levothyroxine Sodium (Synthroid -) 50 mcg PO DAILY@0700 [facility] Last Admin: 08/30/16 06:25 Dose: 50 mcg Venlafaxine HCl (Effexor -) 75 mg PO BID [facility] Last Admin: 08/29/16 22:17 Dose: 75 mg - Objective Vital Signs: Vital Signs Temperature 97.4 F L 08/30/16 05:10 Pulse Rate 71 08/30/16 05:10 Respiratory Rate 20 08/30/16 05:10 Blood Pressure 110/73 08/30/16 05:10 O2 Sat by Pulse Oximetry (%) 96 08/29/16 21:00 Cardiovascular: Yes: S1, S2 Respiratory: Yes: Regular, CTA Bilaterally Gastrointestinal: Yes: Normal Bowel Sounds, Soft Edema: No Labs: CBC, BMP 08/30/16 05:55 08/30/16 05:55 INR, PTT INR 0.97 (0.82-1.09) 08/28/16 12:13 Problem List - Problems (1) Anemia Assessment/Plan: S/P PRBC HGB--9 FOLLOW LABS GI ON CASE HOLD ASA AND PLAVIX Code(s): D64.9 - ANEMIA, UNSPECIFIED Qualifiers: Anemia type: other cause Other causes of anemia: other cause, not classified Qualified Code(s): D64.89 - Other specified anemias (2) Hypothyroidism Assessment/Plan: RESUME SYNTHROID 50 ENDO Code(s): E03.9 - HYPOTHYROIDISM, UNSPECIFIED Qualifiers: Hypothyroidism type: unspecified Qualified Code(s): E03.9 - Hypothyroidism, unspecified (3) CAD (coronary artery disease) Assessment/Plan: CARDIO ON CASE HOLD ASA AND PLAVIX Code(s): I25.10 - ATHSCL HEART DISEASE OF [place] CORONARY ARTERY W/O ANG PCTRS Qualifiers: Coronary Disease-Associated Artery/Lesion type: unspecified vessel or lesion type Associated angina: with unstable angina (4) COPD (chronic obstructive pulmonary disease) Assessment/Plan: NEBS Code(s): J44.9 - CHRONIC OBSTRUCTIVE PULMONARY DISEASE, UNSPECIFIED Qualifiers : COPD type: emphysema Emphysema type: unspecified Qualified Code( s): J43.9 - Emphysema, unspecified (5) GI bleed Assessment/Plan: FOLLOW HGB--9 S/P PRBC GI--?ENDOSCOPY Code(s): K92.2 - GASTROINTESTINAL HEMORRHAGE, UNSPECIFIED
[2016-08-30] MEDS ORDERED: PT OWN MED DRAWER 7, Y5N ONE ×2 (09:24→22:17)
[2016-08-30] MEDS: ASPIRIN COATED 81 MG TABLET.EC PO SCH (09:32)
[2016-08-30] MEDS: VENLAFAXINE HCL 75 MG TABLET PO SCH ×2 (09:32→22:32)
[2016-08-30] MEDS: PANTOPRAZOLE SODIUM 100 ML IVPB SCH (09:33)
--- NOTE | 2016-08-30 13:22 | PN ---
Progress Note (short form) - Note Progress Note: Patient seen and examined Last Vital Signs Temp Pulse Resp BP Pulse Ox 97.7 F 67 18 115/48 94 L 08/30/16 09:10 08/30/16 09:10 08/30/16 09:10 08/30/16 09:10 08/30/16 09:00 Cor: RSR, No murmurs, No gallops Lungs: Clear to P&A Abd: Soft, Normal bowel sounds, No organomegaly Ext:No significant edema Skin: No rashes, Integument intact Abnormal Lab Results 08/29/16 08/30/16 08/30/16 21:00 05:10 05:55 RBC 2.77 L Hgb 8.4 L Hct 25.0 L MPV 7.0 L Eosinophils % 4.7 H D Retic Count 4.91 H Anion Gap Albumin HDL Cholesterol 77 H D 08/30/16 08/30/16 05:55 05:55 RBC 2.94 L Hgb 9.0 L Hct 26.9 L MPV 7.1 L Eosinophils % Retic Count Anion Gap 7 L Albumin 3.0 L HDL Cholesterol Active Medications Alprazolam (Xanax -) 0.5 mg PO Q8H PRN PRN Reason: ANXIETY Last Admin: 08/29/16 22:17 Dose: 0.5 mg Alprazolam (Xanax -) 0.5 mg PO TID PRN PRN Reason: ANXIETY Aspirin (Ecotrin -) 81 mg PO DAILY [facility] Last Admin: 08/30/16 09:32 Dose: 81 mg Atorvastatin Calcium (Lipitor -) 10 mg PO HS [facility] Last Admin: 08/29/16 22:17 Dose: 10 mg Pantoprazole Sodium (Protonix 40mg Ivpb (Pre-Docked)) 100 mls @ 200 mls/hr IVPB DAILY [facility] Last Admin: 08/30/16 09:33 Dose: 200 mls/hr Levothyroxine Sodium (Synthroid -) 50 mcg PO DAILY@0700 [facility] Last Admin: 08/30/16 06:25 Dose: 50 mcg Venlafaxine HCl (Effexor -) 75 mg PO BID [facility] Last Admin: 08/30/16 09:32 Dose: 75 mg A/P 81-year-old female with past medical history of GERD, coronary disease, history of MN, hypothyroidism, anemia, anxiety, COPD, hypertension, hyperlipidemia presents with generalized weakness and palpitations. The patient was recently admitted at the end of July 2016 for palpitations which is found to be SVT. Patient had elevated troponins which was thought to be secondary to demand ischemia. Had a stress test which was unremarkable. Patient was discharged. The patient was subsequently discontinued off the Synthroid as it was potentially thought the Synthroid contributing to her SVT. However, last 2 days, the patient was started to develop generalized weakness and fatigue. Started noticing that even cooking was causing her to feel weak. When she sits up, she feels palpitations which improves with lying down. She denies recent illnesses fevers, chills, cough, vomiting, diarrhea. However did report one episode of melanotic stools. Has also developed a mild epigastric discomfort. Denies chest pain. Anemia--multifactorial. suspect ongoing gi losses ? AVMs Also just started plavix in addition to long termASA , 2 weeks ago. Also Hgb dropped fro 13 to 7.7 in 2weeks. stool occult neg. but given clinical scenario suspect occult bleeding/iron defciency recheck CBC ferritin --10. Await iron saturation B12/folate--nl will redose iv iron based on iron studies Hypothyroid --to restart synthroid
[2016-08-30] MEDS ORDERED: IRON SUCROSE INJECTION 100 MG in SODIUM CHLORIDE 95 ML IVPB ONE (14:30)
--- NOTE | 2016-08-30 16:24 | PN ---
Progress Note, Physician History of Present Illness: pulmonary alert,oob-chair,-sob,-cp - Current Medication List Current Medications: Active Medications Alprazolam (Xanax -) 0.5 mg PO Q8H PRN PRN Reason: ANXIETY Last Admin: 08/29/16 22:17 Dose: 0.5 mg Aspirin (Ecotrin -) 81 mg PO DAILY [facility] Last Admin: 08/30/16 09:32 Dose: 81 mg Atorvastatin Calcium (Lipitor -) 10 mg PO HS [facility] Last Admin: 08/29/16 22:17 Dose: 10 mg Pantoprazole Sodium (Protonix 40mg Ivpb (Pre-Docked)) 100 mls @ 200 mls/hr IVPB DAILY [facility] Last Admin: 08/30/16 09:33 Dose: 200 mls/hr Levothyroxine Sodium (Synthroid -) 50 mcg PO DAILY@0700 [facility] Last Admin: 08/30/16 06:25 Dose: 50 mcg Senna (Senna -) 1 tab PO [facility] Venlafaxine HCl (Effexor -) 75 mg PO BID [facility] Last Admin: 08/30/16 09:32 Dose: 75 mg - Objective Vital Signs: Vital Signs Temperature 97.9 F 08/30/16 14:00 Pulse Rate 87 08/30/16 14:00 Respiratory Rate 20 08/30/16 14:00 Blood Pressure 123/62 08/30/16 14:00 O2 Sat by Pulse Oximetry (%) 94 L 08/30/16 09:00 Constitutional: Yes: Well Nourished, Calm Eyes: Yes: WNL HENT: Yes: WNL Neck: Yes: WNL Cardiovascular: Yes: Regular Rate and Rhythm, S1, S2 Respiratory: Yes: Diminished Gastrointestinal: Yes: Normal Bowel Sounds, Soft Extremities: Yes: WNL Edema: No Labs: CBC, BMP 08/30/16 05:55 08/30/16 05:55 INR, PTT INR 0.97 (0.82-1.09) 08/28/16 12:13 Problem List - Problems (1) Abnormal ECG Code(s): R94.31 - ABNORMAL ELECTROCARDIOGRAM [ECG] [EKG] (2) Anemia Code(s): D64.9 - ANEMIA, UNSPECIFIED Qualifiers: Anemia type: other cause Other causes of anemia: other cause, not classified Qualified Code(s): D64.89 - Other specified anemias (3) Hypothyroidism Code(s): E03.9 - HYPOTHYROIDISM, UNSPECIFIED Qualifiers: Hypothyroidism type: unspecified Qualified Code(s): E03.9 - Hypothyroidism, unspecified (4) CAD (coronary artery disease) Code(s): I25.10 - ATHSCL HEART DISEASE OF [place] CORONARY ARTERY W/O ANG PCTRS Qualifiers: Coronary Disease-Associated Artery/Lesion type: unspecified vessel or lesion type Associated angina: with unstable angina (5) COPD (chronic obstructive pulmonary disease) Code(s): J44.9 - CHRONIC OBSTRUCTIVE PULMONARY DISEASE, UNSPECIFIED Qualifiers : COPD type: emphysema Emphysema type: unspecified Qualified Code( s): J43.9 - Emphysema, unspecified (6) Hyperthyroidism Code(s): E05.90 - THYROTOXICOSIS, UNSP WITHOUT THYROTOXIC CRISIS OR STORM (7) Troponin I above reference range Code(s): R74.8 - ABNORMAL LEVELS OF OTHER SERUM ENZYMES (8) Mycobacteria, 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
--- NOTE | 2016-08-30 21:06 | PN ---
Progress Note (short form) - Note Progress Note: CC: anemia S: denies complaints. No bleeding/dark stool. no cp, palps, dizziness, sob. Current Medications Alprazolam (Xanax -) 0.5 mg PO Q8H PRN PRN Reason: ANXIETY Last Admin: 08/29/16 22:17 Dose: 0.5 mg Aspirin (Ecotrin -) 81 mg PO DAILY [facility] Last Admin: 08/30/16 09:32 Dose: 81 mg Atorvastatin Calcium (Lipitor -) 10 mg PO HS [facility] Last Admin: 08/29/16 22:17 Dose: 10 mg Pantoprazole Sodium (Protonix 40mg Ivpb (Pre-Docked)) 100 mls @ 200 mls/hr IVPB DAILY [facility] Last Admin: 08/30/16 09:33 Dose: 200 mls/hr Levothyroxine Sodium (Synthroid -) 50 mcg PO DAILY@0700 [facility] Last Admin: 08/30/16 06:25 Dose: 50 mcg Senna (Senna -) [address] [facility] Venlafaxine HCl (Effexor -) 75 mg PO BID [facility] Last Admin: 08/30/16 09:32 Dose: 75 mg Vital Signs - 24 hr 08/30/16 08/30/16 08/30/16 00:00 02:00 05:10 Temperature 97.2 F L 97.4 F L Pulse Rate 69 73 71 Respiratory 20 22 20 Rate Blood Pressure 97/44 97/41 110/73 O2 Sat by Pulse Oximetry (%) 08/30/16 08/30/16 08/30/16 09:00 09:10 14:00 Temperature 97.7 F 97.9 F Pulse Rate 67 87 Respiratory 18 20 Rate Blood Pressure 115/48 123/62 O2 Sat by Pulse 94 L Oximetry (%) Intake & Output 08/28/16 08/29/16 08/30/16 08/31/16 07:59 07:59 07:59 07:59 Intake Total 380 1890 Output Total 900 Balance 380 990 Weight 117 lb 3.2 oz 120 lb 8 oz nad, calm jvd flat, neck supple ctab, nl effort rrr nl s1, s2 no mrg + bs soft nt nd ext without e/c/c + dp/pt no jaundice, diaphoresis aaox3 CBC, BMP 08/30/16 05:55 08/30/16 05:55 EKG: nsr, av delay. lad. poor r wave progression. lae. diffuse t wave flattening/TWI. tele: sr CXR without pulm congestion. chronic ateletasis of RUL, (fissure displaced upwards) echo 07/2016: tds, nl lv, rv tds, no sig valve path, rvsp 30-40 mibi 08/2016: no scar/ischemia, nl lvef a/p: 81 yo wit h/o hypertension, hypercholesterolemia, CAD s/p myocardial infarction/PCI > 10 yrs ago, gastroesophageal reflux disease/ulcers/partial gastrectomy in her 20's (unable to absorb iron/on iron infusions) now with chronic anemia (last transfusion > 1 yr ago per patient), thyroid disease, anxiety and chronic obstructive pulmonary disease who presents with weakness, palps. CAD - h/o PCI > 10 years ago. Recent troponin elevation/nstemi thought to be 2/2 demand. no ischemia on mibi. - ok to stop plavix in light of significant hemoglobin drop after starting dapt. ongoing anemia work up per gi/pmd. - recent echo here with nl lvef, no wma's - ASA restarted today. resumed statin, Resume bb tomorrow if bp remains stable. SVT - HR's controlled here. In SR - Resume bb tomorrow if bp remains stable. - mgm't of thyroid abnormalities per pmd. HTN - Off anti-hypertensives. Resume bb tomorrow if bp remains stable. HL - statin anemia - ongoing eval/mgm't per pmd/GI/heme. S/p prbc's. Receiving iron infusion today.
[2016-08-30] MEDS: ATORVASTATIN CA 10 MG TABLET (FP) PO SCH (22:32)
[2016-08-30] MEDS: SENNOSIDES 8.6MG TABLET (FP) PO SCH (22:32)
[2016-08-30] MEDS: ALPRAZolam 0.25 MG TABLET PO PRN (22:33)
[2016-08-31 06:06] LABS: SERUM IRON 24 ug/dL (27-139); TOTAL IRON BINDING CAPACITY 278 ug/dL (250-450); UIBC 254 ug/dL (118-369)
[2016-08-31] MEDS: LEVOTHYROXINE NA 50 MCG TABLET (FP) PO SCH (06:35)
[2016-08-31 08:07] LABS: HEMATOCRIT 27.3 % (34.0-46.6)
[2016-08-31] MEDS ORDERED: PT OWN MED DRAWER 7, Y5N ONE ×2 (08:43→22:46)
[2016-08-31] MEDS: PANTOPRAZOLE SODIUM 100 ML IVPB SCH (09:20)
[2016-08-31] MEDS: ASPIRIN COATED 81 MG TABLET.EC PO SCH (09:21)
[2016-08-31] MEDS: VENLAFAXINE HCL 75 MG TABLET PO SCH ×2 (09:21→23:24)
--- NOTE | 2016-08-31 09:36 | PN ---
Progress Note, Physician History of Present Illness: PULMONARY ALERT,NO DISTRESS,OOB-CHAIR,-SOB,+DRY COUGH. - Current Medication List Current Medications: Active Medications Alprazolam (Xanax -) 0.5 mg PO Q8H PRN PRN Reason: ANXIETY Last Admin: 08/30/16 22:33 Dose: 0.5 mg Aspirin (Ecotrin -) 81 mg PO DAILY [facility] Last Admin: 08/31/16 09:21 Dose: 81 mg Atorvastatin Calcium (Lipitor -) 10 mg PO HS [facility] Last Admin: 08/30/16 22:32 Dose: 10 mg Pantoprazole Sodium (Protonix 40mg Ivpb (Pre-Docked)) 100 mls @ 200 mls/hr IVPB DAILY [facility] Last Admin: 08/31/16 09:20 Dose: 200 mls/hr Levothyroxine Sodium (Synthroid -) 50 mcg PO DAILY@0700 [facility] Last Admin: 08/31/16 06:35 Dose: 50 mcg Senna (Senna -) 1 tab PO [facility] Last Admin: 08/30/16 22:32 Dose: 1 tab Venlafaxine HCl (Effexor -) 75 mg PO BID [facility] Last Admin: 08/31/16 09:21 Dose: 75 mg - Objective Vital Signs: Vital Signs Temperature 97.6 F 08/31/16 05:39 Pulse Rate 81 08/31/16 02:00 Respiratory Rate 16 08/31/16 05:39 Blood Pressure 124/59 08/31/16 05:39 O2 Sat by Pulse Oximetry (%) 94 L 08/30/16 21:00 Constitutional: Yes: Well Nourished, Calm Eyes: Yes: WNL HENT: Yes: WNL Neck: Yes: WNL Cardiovascular: Yes: Regular Rate and Rhythm, S1, S2 Respiratory: Yes: CTA Bilaterally Gastrointestinal: Yes: Normal Bowel Sounds, Soft Extremities: Yes: WNL Edema: No Labs: CBC, BMP INR, PTT INR 0.97 (0.82-1.09) 08/28/16 12:13 Problem List - Problems (1) Abnormal ECG Code(s): R94.31 - ABNORMAL ELECTROCARDIOGRAM [ECG] [EKG] (2) Anemia Code(s): D64.9 - ANEMIA, UNSPECIFIED Qualifiers: Anemia type: other cause Other causes of anemia: other cause, not classified Qualified Code(s): D64.89 - Other specified anemias (3) Hypothyroidism Code(s): E03.9 - HYPOTHYROIDISM, UNSPECIFIED Qualifiers: Hypothyroidism type: unspecified Qualified Code(s): E03.9 - Hypothyroidism, unspecified (4) CAD (coronary artery disease) Code(s): I25.10 - ATHSCL HEART DISEASE OF [place] CORONARY ARTERY W/O ANG PCTRS Qualifiers: Coronary Disease-Associated Artery/Lesion type: unspecified vessel or lesion type Associated angina: with unstable angina (5) COPD (chronic obstructive pulmonary disease) Code(s): J44.9 - CHRONIC OBSTRUCTIVE PULMONARY DISEASE, UNSPECIFIED Qualifiers : COPD type: emphysema Emphysema type: unspecified Qualified Code( s): J43.9 - Emphysema, unspecified (6) Hyperthyroidism Code(s): E05.90 - THYROTOXICOSIS, UNSP WITHOUT THYROTOXIC CRISIS OR STORM (7) Troponin I above reference range Code(s): R74.8 - ABNORMAL LEVELS OF OTHER SERUM ENZYMES (8) Mycobacteria, 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
--- NOTE | 2016-08-31 11:12 | PN ---
Progress Note (short form) - Note Progress Note: CC: anemia S: denies complaints. No bleeding/dark stool. no cp, palps, dizziness, sob. Current Medications Generic Name Dose Route Start Last Admin Trade Name Freq PRN Reason Stop Dose Admin Alprazolam 0.5 mg 08/29/16 10:57 08/30/16 22:33 Xanax - PO 0.5 mg Q8H PRN Administration ANXIETY Aspirin 81 mg 08/30/16 10:00 08/31/16 09:21 Ecotrin - PO 81 mg DAILY [place] Administration Atorvastatin Calcium 10 mg 08/29/16 22:00 08/30/16 22:32 Lipitor - PO 10 mg HS [place] Administration Guaifenesin 10 ml 08/31/16 09:34 Robitussin Dm - PO Q6H PRN COUGH Pantoprazole Sodium 100 mls @ 200 mls/hr 08/30/16 10:00 08/31/16 09:20 Protonix 40mg Ivpb (Pre-Docked) IVPB 200 mls/hr DAILY [place] Administration Levothyroxine Sodium 50 mcg 08/30/16 07:00 08/31/16 06:35 Synthroid - PO 50 mcg DAILY@0700 [place] Administration Senna 1 tab 08/30/16 22:00 08/30/16 22:32 Senna - PO 1 tab HS [place] Administration Venlafaxine HCl 75 mg 08/29/16 22:00 08/31/16 09:21 Effexor - PO 75 mg BID [place] Administration Vital Signs Period Temp Pulse Resp BP Sys/Phillips Pulse Ox Last 24 Hr 97 F-97.9 F 81-94 16-20 100-138/40-62 94-96 nad, calm jvd flat, neck supple ctab, nl effort rrr nl s1, s2 no mrg + bs soft nt nd ext without e/c/c no jaundice, diaphoresis aaox3 CBC, BMP 08/30/16 05:55 08/30/16 05:55 EKG: nsr, av delay. lad. poor r wave progression. lae. diffuse t wave flattening/TWI. tele: sr CXR without pulm congestion. chronic ateletasis of RUL, (fissure displaced upwards) echo 07/2016: tds, nl lv, rv tds, no sig valve path, rvsp 30-40 mibi 08/2016: no scar/ischemia, nl lvef a/p: 81 yo wit h/o hypertension, hypercholesterolemia, CAD s/p myocardial infarction/PCI > 10 yrs ago, gastroesophageal reflux disease/ulcers/partial gastrectomy in her 20's (unable to absorb iron/on iron infusions) now with chronic anemia (last transfusion > 1 yr ago per patient), thyroid disease, anxiety and chronic obstructive pulmonary disease who presents with weakness, palps. CAD - h/o PCI > 10 years ago. Recent troponin elevation/nstemi thought to be 2/2 demand. no ischemia on mibi. - ok to stop plavix in light of significant hemoglobin drop after starting dapt. ongoing anemia work up per gi/pmd. - recent echo here with nl lvef, no wma's - ASA resumed. cont statin. Resume bb when bp remains stable. SVT - HR's controlled here. In SR - Resume bb when bp remains stable. HTN - Off anti-hypertensives as was hypotensive, now bp improving HL - on statin anemia - ongoing eval/mgm't per pmd/GI/heme.
[2016-08-31] MEDS: guaiFENesin/D-METHORPHAN HB 10 ML UNIT-DOSE CUPS PO PRN ×2 (15:01→22:50)
--- NOTE | 2016-08-31 16:44 | PN ---
Progress Note, Physician Chief Complaint: ANEMIA HYPOTHYROIDISM History of Present Illness: STABLE, COMFORTABLE IN BED, BP LOW TODAY - Current Medication List Current Medications: Active Medications Alprazolam (Xanax -) 0.5 mg PO Q8H PRN PRN Reason: ANXIETY Last Admin: 08/30/16 22:33 Dose: 0.5 mg Aspirin (Ecotrin -) 81 mg PO DAILY [facility] Last Admin: 08/31/16 09:21 Dose: 81 mg Atorvastatin Calcium (Lipitor -) 10 mg PO HS [facility] Last Admin: 08/30/16 22:32 Dose: 10 mg Guaifenesin (Robitussin Dm -) 10 ml PO Q6H PRN PRN Reason: COUGH Last Admin: 08/31/16 15:01 Dose: 10 ml Pantoprazole Sodium (Protonix 40mg Ivpb (Pre-Docked)) 100 mls @ 200 mls/hr IVPB DAILY [facility] Last Admin: 08/31/16 09:20 Dose: 200 mls/hr Levothyroxine Sodium (Synthroid -) 50 mcg PO DAILY@0700 [facility] Last Admin: 08/31/16 06:35 Dose: 50 mcg Polyethylene Glycol (Miralax (For Daily Use) -) 17 gm PO DAILY [facility] Senna (Senna -) 1 tab PO HS [facility] Last Admin: 08/30/16 22:32 Dose: 1 tab Venlafaxine HCl (Effexor -) 75 mg PO BID [facility] Last Admin: 08/31/16 09:21 Dose: 75 mg - Objective Vital Signs: Vital Signs Temperature 97.7 F 08/31/16 15:00 Pulse Rate 93 H 08/31/16 15:00 Respiratory Rate 18 08/31/16 15:00 Blood Pressure 85/43 08/31/16 15:00 O2 Sat by Pulse Oximetry (%) 96 08/31/16 09:00 Constitutional: Yes: Well Nourished, No Distress, Calm Cardiovascular: Yes: Regular Rate and Rhythm Respiratory: Yes: Regular, Cough, Rales (BLUL) Gastrointestinal: Yes: Normal Bowel Sounds Musculoskeletal: Yes: WNL Extremities: Yes: WNL Edema: No Peripheral Pulses WNL: Yes Neurological: Yes: Alert, Oriented Labs: CBC, BMP 08/30/16 05:55 08/30/16 05:55 INR, PTT INR 0.97 (0.82-1.09) 08/28/16 12:13 Problem List - Problems (1) Anemia Assessment/Plan: STABLE YESTERDAY, REPEAT LABS TODAY Code(s): D64.9 - ANEMIA, UNSPECIFIED Qualifiers: Anemia type: other cause Other causes of anemia: other cause, not classified Qualified Code(s): D64.89 - Other specified anemias (2) GI bleed Code(s): K92.2 - GASTROINTESTINAL HEMORRHAGE, UNSPECIFIED (3) Hypothyroidism Assessment/Plan: ON LEVOTHYROXINE 50 MG Code(s): E03.9 - HYPOTHYROIDISM, UNSPECIFIED Qualifiers: Hypothyroidism type: unspecified Qualified Code(s): E03.9 - Hypothyroidism, unspecified Assessment/Plan REPEAT LABS TODAY AND IN AM CXR CLEAR ROBITUSSIN DM FOR COUGH AND EXPECTORANT BOLUS N/S 250 ML X 1 ENCOURAGE OOB TO CHAIR
[2016-08-31] MEDS: POLYETHYLENE GLYCOL 3350 119 GM BTL PO SCH (16:46)
[2016-08-31 17:04] LABS: BASOPHIL 0.4 % (0-2.0); EOSINOPHIL 3.4 % (0-4.5); MCH 30.1 pg (25.7-33.7); MCHC 32.9 g/dl (32.0-36.0); MEAN CELL VOLUME 91.6 fl (80-96); PLATELET COUNT 316 K/MM3 (134-434); WHITE BLOOD COUNT 8.8 K/mm3 (4.0-10.0)
[2016-08-31 17:45] LABS: ALBUMIN 2.6 g/dl (3.4-5.0); ALK PHOS 95 U/L (45-117); ANION GAP 7 (8-16); BILIRUBIN,TOTAL 0.2 mg/dL (0.2-1.0); CALCIUM 8.5 mg/dL (8.5-10.1); CO2 28 mmol/L (21-32); CREATININE 0.7 mg/dL (0.55-1.02); GLUCOSE,RANDOM 84 mg/dL (74-106); SGOT/AST 21 U/L (15-37); SGPT/ALT 15 U/L (12-78); TOT PROT 5.6 g/dl (6.4-8.2)
[2016-08-31] MEDS ORDERED: SODIUM CHLORIDE 0.9% 1000 ML INFUS.BAG IV ONE (19:15)
[2016-08-31] MEDS: SENNOSIDES 8.6MG TABLET (FP) PO SCH (22:50)
[2016-08-31] MEDS: ATORVASTATIN CA 10 MG TABLET (FP) PO SCH (22:50)
[2016-08-31] MEDS: ALPRAZolam 0.25 MG TABLET PO PRN (22:51)
[2016-09-01] MEDS: LEVOTHYROXINE NA 50 MCG TABLET (FP) PO SCH (06:09)
[2016-09-01 08:16] LABS: ALBUMIN 2.5 g/dl (3.4-5.0); ANION GAP 6 (8-16); BILIRUBIN,TOTAL 0.4 mg/dL (0.2-1.0); CALCIUM 7.9 mg/dL (8.5-10.1); CO2 28 mmol/L (21-32); CREATININE 0.7 mg/dL (0.55-1.02); GLUCOSE,RANDOM 79 mg/dL (74-106); SGOT/AST 20 U/L (15-37); SGPT/ALT 14 U/L (12-78); TOT PROT 5.5 g/dl (6.4-8.2)
[2016-09-01 08:17] LABS: ALK PHOS 103 U/L (45-117)
[2016-09-01 08:32] LABS: BASOPHIL 0.4 % (0-2.0); EOSINOPHIL 3.9 % (0-4.5); MCH 31.4 pg (25.7-33.7); MCHC 34.8 g/dl (32.0-36.0); MEAN CELL VOLUME 90.2 fl (80-96); MEAN PLT VOLUME 7.2 fl (7.5-11.1); NEUTROPHILS 76.4 % (42.8-82.8); PLATELET COUNT 305 K/MM3 (134-434); RDW 15.1 % (11.6-15.6); WHITE BLOOD COUNT 9.7 K/mm3 (4.0-10.0)
[2016-09-01] MEDS ORDERED: PT OWN MED DRAWER 7, Y5N ONE ×3 (09:54→22:08)
[2016-09-01] MEDS: ASPIRIN COATED 81 MG TABLET.EC PO SCH (10:06)
[2016-09-01] MEDS: PANTOPRAZOLE SODIUM 100 ML IVPB SCH (10:07)
[2016-09-01] MEDS: VENLAFAXINE HCL 75 MG TABLET PO SCH ×2 (10:07→22:39)
--- NOTE | 2016-09-01 10:35 | PN ---
Progress Note, Physician History of Present Illness: PULMONARY ALERT,NO DISTRESS,-CP,-SOB - Current Medication List Current Medications: Active Medications Alprazolam (Xanax -) 0.5 mg PO Q8H PRN PRN Reason: ANXIETY Last Admin: 08/31/16 22:51 Dose: 0.5 mg Aspirin (Ecotrin -) 81 mg PO DAILY [facility] Last Admin: 09/01/16 10:06 Dose: Not Given Atorvastatin Calcium (Lipitor -) 10 mg PO HS [facility] Last Admin: 08/31/16 22:50 Dose: 10 mg Guaifenesin (Robitussin Dm -) 10 ml PO Q6H PRN PRN Reason: COUGH Last Admin: 08/31/16 22:50 Dose: 10 ml Pantoprazole Sodium (Protonix 40mg Ivpb (Pre-Docked)) 100 mls @ 200 mls/hr IVPB DAILY [facility] Last Admin: 09/01/16 10:07 Dose: 200 mls/hr Levothyroxine Sodium (Synthroid -) 50 mcg PO DAILY@0700 [facility] Last Admin: 09/01/16 06:09 Dose: 50 mcg Polyethylene Glycol (Miralax (For Daily Use) -) 17 gm PO DAILY [facility] Last Admin: 08/31/16 16:46 Dose: 17 gm Senna (Senna -) 1 tab PO HS [facility] Last Admin: 08/31/16 22:50 Dose: 1 tab Venlafaxine HCl (Effexor -) 75 mg PO BID [facility] Last Admin: 09/01/16 10:07 Dose: 75 mg - Objective Vital Signs: Vital Signs Temperature 98 F 09/01/16 07:48 Pulse Rate 86 09/01/16 07:48 Respiratory Rate 16 09/01/16 07:48 Blood Pressure 116/69 09/01/16 07:48 O2 Sat by Pulse Oximetry (%) 93 L 08/31/16 21:00 Constitutional: Yes: Well Nourished, Calm Eyes: Yes: WNL HENT: Yes: WNL Neck: Yes: WNL Cardiovascular: Yes: Regular Rate and Rhythm, S1, S2 Respiratory: Yes: CTA Bilaterally Gastrointestinal: Yes: Normal Bowel Sounds, Soft Extremities: Yes: WNL Edema: No Labs: CBC, BMP 09/01/16 07:40 09/01/16 07:40 INR, PTT INR 0.97 (0.82-1.09) 08/28/16 12:13 - ....Imaging Chest X-ray: Report Reviewed, Image Reviewed Problem List - Problems (1) Abnormal ECG Code(s): R94.31 - ABNORMAL ELECTROCARDIOGRAM [ECG] [EKG] (2) Anemia Code(s): D64.9 - ANEMIA, UNSPECIFIED Qualifiers: Anemia type: other cause Other causes of anemia: other cause, not classified Qualified Code(s): D64.89 - Other specified anemias (3) Hypothyroidism Code(s): E03.9 - HYPOTHYROIDISM, UNSPECIFIED Qualifiers: Hypothyroidism type: unspecified Qualified Code(s): E03.9 - Hypothyroidism, unspecified (4) CAD (coronary artery disease) Code(s): I25.10 - ATHSCL HEART DISEASE OF [place] CORONARY ARTERY W/O ANG PCTRS Qualifiers: Coronary Disease-Associated Artery/Lesion type: unspecified vessel or lesion type Associated angina: with unstable angina (5) COPD (chronic obstructive pulmonary disease) Code(s): J44.9 - CHRONIC OBSTRUCTIVE PULMONARY DISEASE, UNSPECIFIED 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
--- NOTE | 2016-09-01 10:46 | PN ---
Progress Note (short form) - Note Progress Note: CC: anemia S: no cp, palps, dizziness, sob. had more dark bm's overnight and had transfusion Current Medications Generic Name Dose Route Start Last Admin Trade Name Wyattq PRN Reason Stop Dose Admin Alprazolam 0.5 mg 08/29/16 10:57 08/31/16 22:51 Xanax - PO 0.5 mg Q8H PRN Administration ANXIETY Aspirin 81 mg 08/30/16 10:00 09/01/16 10:06 Ecotrin - PO Not Given DAILY [place] Atorvastatin Calcium 10 mg 08/29/16 22:00 08/31/16 22:50 Lipitor - PO 10 mg HS [place] Administration Guaifenesin 10 ml 08/31/16 09:34 08/31/16 22:50 Robitussin Dm - PO 10 ml Q6H PRN Administration COUGH Pantoprazole Sodium 100 mls @ 200 mls/hr 08/30/16 10:00 09/01/16 10:07 Protonix 40mg Ivpb (Pre-Docked) IVPB 200 mls/hr DAILY [place] Administration Levothyroxine Sodium 50 mcg 08/30/16 07:00 09/01/16 06:09 Synthroid - PO 50 mcg DAILY@0700 [place] Administration Polyethylene Glycol 17 gm 08/31/16 16:37 08/31/16 16:46 Miralax (For Daily Use) - PO 17 gm DAILY [place] Administration Senna 1 tab 08/30/16 22:00 08/31/16 22:50 Senna - PO 1 tab HS [place] Administration Venlafaxine HCl 75 mg 08/29/16 22:00 09/01/16 10:07 Effexor - PO 75 mg BID [place] Administration Vital Signs Period Temp Pulse Resp BP Sys/Phillips Pulse Ox Last 24 Hr 97.6 F-98.1 F 86-103 16-22 85-116/43-69 93 nad, calm jvd flat, neck supple ctab, nl effort rrr nl s1, s2 no mrg + bs soft nt nd ext without e/c/c no jaundice, diaphoresis aaox3 CBC, BMP 09/01/16 07:40 09/01/16 07:40 EKG: nsr, av delay. lad. poor r wave progression. lae. diffuse t wave flattening/TWI. tele: sr CXR without pulm congestion. chronic ateletasis of RUL, (fissure displaced upwards) echo 07/2016: tds, nl lv, rv tds, no sig valve path, rvsp 30-40 mibi 08/2016: no scar/ischemia, nl lvef a/p: 81 yo wit h/o hypertension, hypercholesterolemia, CAD s/p myocardial infarction/PCI > 10 yrs ago, gastroesophageal reflux disease/ulcers/partial gastrectomy in her 20's (unable to absorb iron/on iron infusions) now with chronic anemia (last transfusion > 1 yr ago per patient), thyroid disease, anxiety and chronic obstructive pulmonary disease who presents with weakness, palps. CAD - h/o PCI > 10 years ago. Recent troponin elevation/nstemi thought to be 2/2 demand. no ischemia on mibi. - ok to stop plavix in light of significant hemoglobin drop after starting dapt. ongoing anemia work up per gi/pmd. - recent echo here with nl lvef, no wma's - ASA on hold due to anemia - cont statin. Resume bb when bp remains stable (was low yesterday 2/2 anemia, improved after prbcs). SVT - HR's controlled here. In SR - Resume bb when bp remains stable. HTN - Off anti-hypertensives as was hypotensive, now bp improving HL - on statin anemia - still with dark bm's and drop in hgb requiring prbcs 08/31 - ongoing eval/mgm't per pmd/GI/heme.
[2016-09-01] MEDS: POLYETHYLENE GLYCOL 3350 119 GM BTL PO SCH (12:10)
--- NOTE | 2016-09-01 13:32 | PN ---
GI Progress Note Subjective: Appears comfortable-no complaints. No abdominal pain. Had BM mixed with blood earlier. Hgb went from 9 --> 7.9. After 2 units PRBC Hgb 11.3 - Objective Vital Signs: Vital Signs Temperature 97.8 F 09/01/16 10:00 Pulse Rate 85 09/01/16 10:00 Respiratory Rate 18 09/01/16 10:00 Blood Pressure 120/78 09/01/16 10:00 O2 Sat by Pulse Oximetry (%) 96 09/01/16 09:00 Constitutional: No Distress HENT: Yes: Normocephalic Cardiovascular: Yes: Regular Rate and Rhythm Respiratory: Yes: CTA Bilaterally Gastrointestinal Inspection: Yes: WNL ...Auscultate: Yes: Normoactive Bowel Sounds ...Palpate: Yes: Soft. No: Tenderness Labs: CBC, BMP 09/01/16 07:40 09/01/16 07:40 INR, PTT INR 0.97 (0.82-1.09) 08/28/16 12:13 Assessment/Plan Will need EGD and colon to evaluate source. Likely lower as no bump in BUN and blood appears dark red suggesting R colon or small bowel. Prep orders written. Will do tomorrow, time to be arranged
[2016-09-01] MEDS ORDERED: POLYETHYLENE GLYCOL 3350 255 GM BTL PO ONE (15:00)
--- NOTE | 2016-09-01 19:49 | PN ---
Progress Note, Physician Chief Complaint: ANEMIA HYPOTHYROIDISM History of Present Illness: STABLE, COMFORTABLE IN BED, BP LOW TODAY - Current Medication List Current Medications: Active Medications Atorvastatin Calcium (Lipitor -) 10 mg PO HS [facility] Last Admin: 08/31/16 22:50 Dose: 10 mg Bisacodyl (Dulcolax -) 10 mg PO BID [facility] Guaifenesin (Robitussin Dm -) 10 ml PO Q6H PRN PRN Reason: COUGH Last Admin: 08/31/16 22:50 Dose: 10 ml Pantoprazole Sodium (Protonix 40mg Ivpb (Pre-Docked)) 100 mls @ 200 mls/hr IVPB DAILY [facility] Last Admin: 09/01/16 10:07 Dose: 200 mls/hr Levothyroxine Sodium (Synthroid -) 50 mcg PO DAILY@0700 [facility] Last Admin: 09/01/16 06:09 Dose: 50 mcg Polyethylene Glycol (Miralax (For Daily Use) -) 17 gm PO DAILY [facility] Last Admin: 09/01/16 12:10 Dose: 17 gm Senna (Senna -) 1 tab PO HS [facility] Last Admin: 08/31/16 22:50 Dose: 1 tab Venlafaxine HCl (Effexor -) 75 mg PO BID [facility] Last Admin: 09/01/16 10:07 Dose: 75 mg - Objective Vital Signs: Vital Signs Temperature 97.7 F 09/01/16 17:51 Pulse Rate 88 09/01/16 17:51 Respiratory Rate 18 09/01/16 17:51 Blood Pressure 116/78 09/01/16 17:51 O2 Sat by Pulse Oximetry (%) 96 09/01/16 09:00 Constitutional: Yes: Well Nourished, No Distress, Calm Cardiovascular: Yes: Regular Rate and Rhythm Respiratory: Yes: Regular Gastrointestinal: Yes: Normal Bowel Sounds, Rectal Bleeding ...Rectal Exam: Yes: Guaiac Positive Musculoskeletal: Yes: WNL Edema: No Peripheral Pulses WNL: Yes Labs: CBC, BMP 09/01/16 07:40 09/01/16 07:40 INR, PTT INR 0.97 (0.82-1.09) 08/28/16 12:13 Problem List - Problems (1) Anemia Assessment/Plan: LABS IMPROVED AFTER 2 UNITS OF PRBC CONTINUES TO BLEED- SOURCE GI GOING FOR EGD AND COLONOSCOPY IN AM REPEAT LABS IN AM Code(s): D64.9 - ANEMIA, UNSPECIFIED Qualifiers: Anemia type: other cause Other causes of anemia: other cause, not classified Qualified Code(s): D64.89 - Other specified anemias (2) GI bleed Code(s): K92.2 - GASTROINTESTINAL HEMORRHAGE, UNSPECIFIED (3) Hypothyroidism Code(s): E03.9 - HYPOTHYROIDISM, UNSPECIFIED Qualifiers: Hypothyroidism type: unspecified Qualified Code(s): E03.9 - Hypothyroidism, unspecified Assessment/Plan LABS IMPROVED AFTER 2 UNITS OF PRBC CONTINUES TO BLEED- SOURCE GI GOING FOR EGD AND COLONOSCOPY IN AM REPEAT LABS IN AM VSS
[2016-09-01] MEDS: BISACODYL 5 MG TABLET.DR (FP) PO SCH (22:38)
[2016-09-01] MEDS: ATORVASTATIN CA 10 MG TABLET (FP) PO SCH (22:39)
[2016-09-01] MEDS: SENNOSIDES 8.6MG TABLET (FP) PO SCH (22:39)
[2016-09-02] MEDS: ALPRAZolam 0.25 MG TABLET PO PRN ×2 (00:06→22:31)
[2016-09-02 06:29] LABS: BASOPHIL 0.5 % (0-2.0); EOSINOPHIL 3.5 % (0-4.5); MCH 30.9 pg (25.7-33.7); MCHC 34.4 g/dl (32.0-36.0); MEAN CELL VOLUME 89.8 fl (80-96); MEAN PLT VOLUME 7.2 fl (7.5-11.1); NEUTROPHILS 67.4 % (42.8-82.8); PLATELET COUNT 383 K/MM3 (134-434); RDW 16.1 % (11.6-15.6); WHITE BLOOD COUNT 7.4 K/mm3 (4.0-10.0)
[2016-09-02 06:46] LABS: ALBUMIN 2.6 g/dl (3.4-5.0); ANION GAP 9 (8-16); CALCIUM 8.1 mg/dL (8.5-10.1); CO2 27 mmol/L (21-32); CREATININE 0.7 mg/dL (0.55-1.02); GLUCOSE,RANDOM 77 mg/dL (74-106); SGOT/AST 17 U/L (15-37); SGPT/ALT 13 U/L (12-78)
[2016-09-02 06:48] LABS: ALK PHOS 102 U/L (45-117); BILIRUBIN,TOTAL 0.4 mg/dL (0.2-1.0); TOT PROT 5.6 g/dl (6.4-8.2)
[2016-09-02] MEDS: LEVOTHYROXINE NA 50 MCG TABLET (FP) PO SCH (07:03)
--- NOTE | 2016-09-02 09:33 | PN ---
Progress Note, Physician - Current Medication List Current Medications: Active Medications Alprazolam (Xanax -) 0.5 mg PO Q8H PRN PRN Reason: ANXIETY Last Admin: 09/02/16 00:06 Dose: 0.5 mg Atorvastatin Calcium (Lipitor -) 10 mg PO HS [facility] Last Admin: 09/01/16 22:39 Dose: 10 mg Bisacodyl (Dulcolax -) 10 mg PO BID [facility] Last Admin: 09/01/16 22:38 Dose: 10 mg Guaifenesin (Robitussin Dm -) 10 ml PO Q6H PRN PRN Reason: COUGH Last Admin: 08/31/16 22:50 Dose: 10 ml Pantoprazole Sodium (Protonix 40mg Ivpb (Pre-Docked)) 100 mls @ 200 mls/hr IVPB DAILY [facility] Last Admin: 09/01/16 10:07 Dose: 200 mls/hr Levothyroxine Sodium (Synthroid -) 50 mcg PO DAILY@0700 [facility] Last Admin: 09/02/16 07:03 Dose: 50 mcg Polyethylene Glycol (Miralax (For Daily Use) -) 17 gm PO DAILY [facility] Last Admin: 09/01/16 12:10 Dose: 17 gm Senna (Senna -) 1 tab PO HS [facility] Last Admin: 09/01/16 22:39 Dose: 1 tab Venlafaxine HCl (Effexor -) 75 mg PO BID [facility] Last Admin: 09/01/16 22:39 Dose: 75 mg - Objective Vital Signs: Vital Signs Temperature 97.5 F L 09/02/16 06:00 Pulse Rate 82 09/02/16 06:00 Respiratory Rate 21 09/02/16 06:00 Blood Pressure 110/71 09/02/16 06:00 O2 Sat by Pulse Oximetry (%) 100 09/01/16 22:00 Labs: CBC, BMP 09/02/16 05:10 09/02/16 05:10 INR, PTT INR 0.97 (0.82-1.09) 08/28/16 12:13 Assessment/Plan echo 07/2016: tds, nl lv, rv tds, no sig valve path, rvsp 30-40 mibi 08/2016: no scar/ischemia, nl lvef a/p: 81 yo with h/o hypertension, hypercholesterolemia, CAD s/p myocardial infarction/PCI > 10 yrs ago, gastroesophageal reflux disease/ulcers/partial gastrectomy in her 20's (unable to absorb iron/on iron infusions) now with chronic anemia (last transfusion > 1 yr ago per patient), thyroid disease, anxiety and chronic obstructive pulmonary disease who presents with weakness, palps. CAD - h/o PCI > 10 years ago. Recent troponin elevation/nstemi thought to be 2/2 demand. no ischemia on mibi. - ok to stop plavix in light of significant hemoglobin drop after starting dapt. ongoing anemia work up per gi/pmd. - recent echo here with nl lvef, no wma's - ASA on hold due to anemia - cont statin. Resume bb when no concerns over hemodynamic instability (? resume 09/03 if bp stable and H/H not trending down) SVT - HR's controlled here. In SR - Resume bb later, as disc'd above HTN - Off anti-hypertensives as was hypotensive, now bp improving HL - on statin anemia - still with dark bm's and drop in hgb requiring prbcs 08/31 - ongoing eval/mgm't per pmd/GI/heme.
[2016-09-02] MEDS ORDERED: PT OWN MED DRAWER 7, Y5N ONE ×2 (09:37→22:28)
[2016-09-02] MEDS: VENLAFAXINE HCL 75 MG TABLET PO SCH ×2 (09:59→22:30)
[2016-09-02] MEDS: BISACODYL 5 MG TABLET.DR (FP) PO SCH ×2 (09:59→22:30)
[2016-09-02] MEDS: PANTOPRAZOLE SODIUM 100 ML IVPB SCH (10:00)
[2016-09-02] MEDS: POLYETHYLENE GLYCOL 3350 119 GM BTL PO SCH (10:00)
[2016-09-02] MEDS ORDERED: TETRACAINE/BENZOCAINE/BUTAMBEN 20 GM SPR TP ONE (14:30)
[2016-09-02] MEDS ORDERED: LIDOCAINE HCL/PF 2% SDV 5ML VIAL ONE (14:30)
[2016-09-02] MEDS ORDERED: PROPOFOL 20 ML ONE ×4 (14:30)
[2016-09-02] MEDS ORDERED: ePHEDrine SULFATE 50 MG/1 ML AMPULE ONE (14:30)
[2016-09-02] MEDS ORDERED: SUCCINYLCHOLINE CHLORIDE 200 MG/10 ML VIAL ONE (14:30)
[2016-09-02] MEDS ORDERED: ETOMIDATE 20 MG/10 ML AMPUL IVPUSH ONE (14:30)
[2016-09-02] MEDS ORDERED: GLYCOPYRROLATE 0.2 MG/1 ML VIAL ONE (14:30)
[2016-09-02] MEDS ORDERED: EPINEPHrine/PF 1 MG/1 ML (1:1,000) AMPULE ONE (14:31)
--- NOTE | 2016-09-02 17:01 | PN ---
Progress Note (short form) - Note Progress Note: No CP or SOB. No occult bleeding noted. Hgb : 11.3 -> 10.7. Intake & Output 08/30/16 08/31/16 09/01/16 09/02/16 23:59 23:59 23:59 23:59 Intake Total 097 923 5507 700 Output Total 1200 300 Balance -498 832 6217 700 Weight 120 lb 8 oz 133 lb 9.6 oz Last Vital Signs Temp Pulse Resp BP Pulse Ox 97.9 F 83 16 128/72 97 09/02/16 14:00 09/02/16 14:00 09/02/16 14:00 09/02/16 14:00 09/02/16 09:00 Active Medications Alprazolam (Xanax -) 0.5 mg PO Q8H PRN PRN Reason: ANXIETY Last Admin: 09/02/16 00:06 Dose: 0.5 mg Atorvastatin Calcium (Lipitor -) 10 mg PO [facility] Last Admin: 09/01/16 22:39 Dose: 10 mg Bisacodyl (Dulcolax -) 10 mg PO BID [facility] Last Admin: 09/02/16 09:59 Dose: 10 mg Guaifenesin (Robitussin Dm -) 10 ml PO Q6H PRN PRN Reason: COUGH Last Admin: 08/31/16 22:50 Dose: 10 ml Pantoprazole Sodium (Protonix 40mg Ivpb (Pre-Docked)) 100 mls @ 200 mls/hr IVPB DAILY [facility] Last Admin: 09/02/16 10:00 Dose: 200 mls/hr Levothyroxine Sodium (Synthroid -) 50 mcg PO DAILY@0700 [facility] Last Admin: 09/02/16 07:03 Dose: 50 mcg Polyethylene Glycol (Miralax (For Daily Use) -) 17 gm PO DAILY [facility] Last Admin: 09/02/16 10:00 Dose: 17 gm Senna (Senna -) 1 tab PO [facility] Last Admin: 09/01/16 22:39 Dose: 1 tab Venlafaxine HCl (Effexor -) 75 mg PO BID [facility] Last Admin: 09/02/16 09:59 Dose: 75 mg Constitutional: Yes: NAD Eyes: Yes: WNL HENT: Yes: WNL Neck: Yes: WNL Cardiovascular: Yes: Regular Rate and Rhythm, S1, S2 Respiratory: Yes: Clear Gastrointestinal: Yes: Normal Bowel Sounds, Soft Extremities: Yes: WNL Edema: No Labs: Laboratory Results - last 24 hr 08/30/16 09/02/16 09/02/16 05:55 05:10 05:10 WBC 7.4 RBC 3.45 L Hgb 10.7 Hct 31.0 L MCV 89.8 MCHC 34.4 RDW 16.1 H Plt Count 383 D MPV 7.2 L Neutrophils % 67.4 Lymphocytes % 20.7 D Monocytes % 7.9 Eosinophils % 3.5 Basophils % 0.5 Sodium 142 Potassium 3.8 Chloride 106 Carbon Dioxide 27 Anion Gap 9 BUN 9 Creatinine 0.7 Creat Clearance w eGFR > 60 Random Glucose 77 Calcium 8.1 L Total Bilirubin 0.4 AST 17 ALT 13 Alkaline Phosphatase 102 Total Protein 5.6 L Albumin 2.6 L Anti-A Titer Cancelled Blood Type Cancelled Antibody Screen Cancelled Direct Antiglob Test Negative Crossmatch See Detail Spec Expiration Date Cancelled Problem List - Problems (1) Abnormal ECG Code(s): R94.31 - ABNORMAL ELECTROCARDIOGRAM [ECG] [EKG] (2) Anemia Code(s): D64.9 - ANEMIA, UNSPECIFIED Qualifiers: Anemia type: other cause Other causes of anemia: other cause, not classified Qualified Code(s): D64.89 - Other specified anemias (3) Hypothyroidism Code(s): E03.9 - HYPOTHYROIDISM, UNSPECIFIED Qualifiers: Hypothyroidism type: unspecified Qualified Code(s): E03.9 - Hypothyroidism, unspecified (4) CAD (coronary artery disease) Code(s): I25.10 - ATHSCL HEART DISEASE OF [place] CORONARY ARTERY W/O ANG PCTRS Qualifiers: Coronary Disease-Associated Artery/Lesion type: unspecified vessel or lesion type Associated angina: with unstable angina (5) COPD (chronic obstructive pulmonary disease) Code(s): J44.9 - CHRONIC OBSTRUCTIVE PULMONARY DISEASE, UNSPECIFIED 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
--- NOTE | 2016-09-02 18:38 | PN ---
Progress Note, Physician Chief Complaint: IN BED, NAD COMFORTABLE CHART AND NOTES REVIEWED - Current Medication List Current Medications: Active Medications Alprazolam (Xanax -) 0.5 mg PO Q8H PRN PRN Reason: ANXIETY Last Admin: 09/02/16 00:06 Dose: 0.5 mg Atorvastatin Calcium (Lipitor -) 10 mg PO HS [facility] Last Admin: 09/01/16 22:39 Dose: 10 mg Bisacodyl (Dulcolax -) 10 mg PO BID [facility] Last Admin: 09/02/16 09:59 Dose: 10 mg Guaifenesin (Robitussin Dm -) 10 ml PO Q6H PRN PRN Reason: COUGH Last Admin: 08/31/16 22:50 Dose: 10 ml Pantoprazole Sodium (Protonix 40mg Ivpb (Pre-Docked)) 100 mls @ 200 mls/hr IVPB DAILY [facility] Last Admin: 09/02/16 10:00 Dose: 200 mls/hr Levothyroxine Sodium (Synthroid -) 50 mcg PO DAILY@0700 [facility] Last Admin: 09/02/16 07:03 Dose: 50 mcg Polyethylene Glycol (Miralax (For Daily Use) -) 17 gm PO DAILY [facility] Last Admin: 09/02/16 10:00 Dose: 17 gm Senna (Senna -) 1 tab PO [facility] Last Admin: 09/01/16 22:39 Dose: 1 tab Venlafaxine HCl (Effexor -) 75 mg PO BID [facility] Last Admin: 09/02/16 09:59 Dose: 75 mg - Objective Vital Signs: Vital Signs Temperature 98.6 F 09/02/16 18:10 Pulse Rate 80 09/02/16 18:10 Respiratory Rate 18 09/02/16 18:10 Blood Pressure 140/72 09/02/16 18:10 O2 Sat by Pulse Oximetry (%) 98 09/02/16 18:10 Constitutional: Yes: No Distress Eyes: Yes: WNL HENT: Yes: WNL Neck: Yes: WNL Cardiovascular: Yes: WNL Respiratory: Yes: WNL Gastrointestinal: Yes: WNL Genitourinary: Yes: WNL Musculoskeletal: Yes: WNL Extremities: Yes: WNL Edema: No Peripheral Pulses WNL: Yes ...Motor Strength: WNL Psychiatric: Yes: Agitated Labs: CBC, BMP 09/02/16 05:10 09/02/16 05:10 INR, PTT INR 0.97 (0.82-1.09) 08/28/16 12:13 Problem List - Problems (1) Anemia Code(s): D64.9 - ANEMIA, UNSPECIFIED Qualifiers: Anemia type: other cause Other causes of anemia: other cause, not classified Qualified Code(s): D64.89 - Other specified anemias (2) GI bleed Code(s): K92.2 - GASTROINTESTINAL HEMORRHAGE, UNSPECIFIED (3) Hypothyroidism Code(s): E03.9 - HYPOTHYROIDISM, UNSPECIFIED Qualifiers: Hypothyroidism type: unspecified Qualified Code(s): E03.9 - Hypothyroidism, unspecified (4) CAD (coronary artery disease) Code(s): I25.10 - ATHSCL HEART DISEASE OF [place] CORONARY ARTERY W/O ANG PCTRS Qualifiers: Coronary Disease-Associated Artery/Lesion type: unspecified vessel or lesion type Associated angina: with unstable angina (5) COPD (chronic obstructive pulmonary disease) Code(s): J44.9 - CHRONIC OBSTRUCTIVE PULMONARY DISEASE, UNSPECIFIED 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
[2016-09-02] MEDS: SENNOSIDES 8.6MG TABLET (FP) PO SCH (22:30)
[2016-09-02] MEDS: ATORVASTATIN CA 10 MG TABLET (FP) PO SCH (22:30)
[2016-09-03] MEDS: LEVOTHYROXINE NA 50 MCG TABLET (FP) PO SCH (06:04)
--- NOTE | 2016-09-03 09:11 | PN ---
Progress Note (short form) - Note Progress Note: CC: anemia S: no cp, palps, dizziness, sob. had endoscopy yesterday Current Medications Alprazolam (Xanax -) 0.5 mg PO Q8H PRN PRN Reason: ANXIETY Last Admin: 09/02/16 22:31 Dose: 0.5 mg Atorvastatin Calcium (Lipitor -) 10 mg PO HS [facility] Last Admin: 09/02/16 22:30 Dose: 10 mg Bisacodyl (Dulcolax -) 10 mg PO BID [facility] Last Admin: 09/02/16 22:30 Dose: 10 mg Guaifenesin (Robitussin Dm -) 10 ml PO Q6H PRN PRN Reason: COUGH Last Admin: 08/31/16 22:50 Dose: 10 ml Pantoprazole Sodium (Protonix 40mg Ivpb (Pre-Docked)) 100 mls @ 200 mls/hr IVPB DAILY [facility] Last Admin: 09/02/16 10:00 Dose: 200 mls/hr Levothyroxine Sodium (Synthroid -) 50 mcg PO DAILY@0700 [facility] Last Admin: 09/03/16 06:04 Dose: 50 mcg Polyethylene Glycol (Miralax (For Daily Use) -) 17 gm PO DAILY [facility] Last Admin: 09/02/16 10:00 Dose: 17 gm Senna (Senna -) 1 tab PO [facility] Last Admin: 09/02/16 22:30 Dose: 1 tab Venlafaxine HCl (Effexor -) 75 mg PO BID [facility] Last Admin: 09/02/16 22:30 Dose: 75 mg Vital Signs - 24 hr 09/02/16 09/02/16 09/02/16 09:47 14:00 18:00 Temperature 97.7 F 97.9 F 97.7 F Pulse Rate 84 83 74 Respiratory 18 16 18 Rate Blood Pressure 128/64 128/72 140/76 O2 Sat by Pulse Oximetry (%) 09/02/16 09/02/16 09/02/16 18:10 21:05 22:00 Temperature 98.6 F 98.7 F Pulse Rate 80 77 77 Respiratory 18 18 18 Rate Blood Pressure 140/72 111/51 111/51 O2 Sat by Pulse 98 94 L 94 L Oximetry (%) 09/03/16 09/03/16 01:00 05:00 Temperature 98.8 F 98.5 F Pulse Rate 79 89 Respiratory 18 20 Rate Blood Pressure 96/44 103/59 O2 Sat by Pulse Oximetry (%) Intake & Output 09/01/16 09/02/16 09/03/16 09/04/16 07:59 07:59 07:59 07:59 Intake Total 1320 400 860 Balance 1320 400 860 Weight 133 lb 9.6 oz nad, calm jvd flat, neck supple ctab, nl effort rrr nl s1, s2 no mrg + bs soft nt nd ext without e/c/c no jaundice, diaphoresis aaox3 no CBC, BMP today EKG: nsr, av delay. lad. poor r wave progression. lae. diffuse t wave flattening/TWI. tele: sr overall, one brief episode of unknown rhythm, possible ectopic rhythm with blocked pac's? CXR without pulm congestion. chronic ateletasis of RUL, (fissure displaced upwards) echo 07/2016: tds, nl lv, rv tds, no sig valve path, rvsp 30-40 mibi 08/2016: no scar/ischemia, nl lvef a/p: 81 yo wit h/o hypertension, hypercholesterolemia, CAD s/p myocardial infarction/PCI > 10 yrs ago, gastroesophageal reflux disease/ulcers/partial gastrectomy in her 20's (unable to absorb iron/on iron infusions) now with chronic anemia (last transfusion > 1 yr ago per patient), thyroid disease, anxiety and chronic obstructive pulmonary disease who presents with weakness, palps. CAD - h/o PCI > 10 years ago. Recent troponin elevation/nstemi thought to be 2/2 demand. no ischemia on mibi. - Now off plavix in light of significant hemoglobin drop after starting dapt. ongoing anemia work up per gi/pmd. s/p endoscopy 09/02, results pending. - recent echo here with nl lvef, no wma's - ASA on hold due to anemia, resume when ok per gi/heme - cont low dose statin. Resume bb/losartan when bp remains stable continues to remain on low end. SVT - HR's controlled here. In SR - Patient with brief episode of unknown rhythm, asx. blocked pac's? Con't telemetry monitoring. - Resume bb when bp remains stable. HTN - Off anti-hypertensives as was hypotensive, now bp improving but still running low HL - on statin anemia - still with dark bm's and drop in hgb requiring prbcs 08/31 - ongoing eval/mgm't per pmd/GI/heme. - s/p endoscopy 09/02, no significant abnormalities.
[2016-09-03] MEDS: PANTOPRAZOLE SODIUM 100 ML IVPB SCH (09:31)
[2016-09-03] MEDS: guaiFENesin/D-METHORPHAN HB 10 ML UNIT-DOSE CUPS PO PRN (09:31)
[2016-09-03] MEDS: BISACODYL 5 MG TABLET.DR (FP) PO SCH ×2 (09:32→22:21)
[2016-09-03] MEDS: POLYETHYLENE GLYCOL 3350 119 GM BTL PO SCH (09:34)
[2016-09-03] MEDS: VENLAFAXINE HCL 75 MG TABLET PO SCH ×2 (09:34→22:15)
--- NOTE | 2016-09-03 14:37 | PN ---
Progress Note (short form) - Note Progress Note: No CP or SOB. S/ P endoscopy yesterday. No occult bleeding noted. Intake & Output 08/31/16 09/01/16 09/02/16 09/03/16 23:59 23:59 23:59 23:59 Intake Total 620 1300 860 460 Output Total 300 Balance 320 1300 860 460 Weight 133 lb 9.6 oz Last Vital Signs Temp Pulse Resp BP Pulse Ox 98.0 F 87 22 128/67 96 09/03/16 12:00 09/03/16 12:00 09/03/16 12:00 09/03/16 12:00 09/03/16 09:00 Active Medications Alprazolam (Xanax -) 0.5 mg PO Q8H PRN PRN Reason: ANXIETY Last Admin: 09/02/16 22:31 Dose: 0.5 mg Atorvastatin Calcium (Lipitor -) 10 mg PO [facility] Last Admin: 09/02/16 22:30 Dose: 10 mg Bisacodyl (Dulcolax -) 10 mg PO BID [facility] Last Admin: 09/03/16 09:32 Dose: Not Given Guaifenesin (Robitussin Dm -) 10 ml PO Q6H PRN PRN Reason: COUGH Last Admin: 09/03/16 09:31 Dose: 10 ml Pantoprazole Sodium (Protonix 40mg Ivpb (Pre-Docked)) 100 mls @ 200 mls/hr IVPB DAILY [facility] Last Admin: 09/03/16 09:31 Dose: 200 mls/hr Levothyroxine Sodium (Synthroid -) 50 mcg PO DAILY@0700 [facility] Last Admin: 09/03/16 06:04 Dose: 50 mcg Polyethylene Glycol (Miralax (For Daily Use) -) 17 gm PO DAILY [facility] Last Admin: 09/03/16 09:34 Dose: Not Given Senna (Senna -) 1 tab PO [facility] Last Admin: 09/02/16 22:30 Dose: 1 tab Venlafaxine HCl (Effexor -) 75 mg PO BID [facility] Last Admin: 09/03/16 09:34 Dose: 75 mg Constitutional: Yes: NAD Eyes: Yes: WNL HENT: Yes: WNL Neck: Yes: WNL Cardiovascular: Yes: Regular Rate and Rhythm, S1, S2 Respiratory: Yes: Clear Gastrointestinal: Yes: Normal Bowel Sounds, Soft Extremities: Yes: WNL Edema: No Labs: Problem List - Problems (1) Abnormal ECG Code(s): R94.31 - ABNORMAL ELECTROCARDIOGRAM [ECG] [EKG] (2) Anemia Code(s): D64.9 - ANEMIA, UNSPECIFIED Qualifiers: Anemia type: other cause Other causes of anemia: other cause, not classified Qualified Code(s): D64.89 - Other specified anemias (3) Hypothyroidism Code(s): E03.9 - HYPOTHYROIDISM, UNSPECIFIED Qualifiers: Hypothyroidism type: unspecified Qualified Code(s): E03.9 - Hypothyroidism, unspecified (4) CAD (coronary artery disease) Code(s): I25.10 - ATHSCL HEART DISEASE OF [place] CORONARY ARTERY W/O ANG PCTRS Qualifiers: Coronary Disease-Associated Artery/Lesion type: unspecified vessel or lesion type Associated angina: with unstable angina (5) COPD (chronic obstructive pulmonary disease) Code(s): J44.9 - CHRONIC OBSTRUCTIVE PULMONARY DISEASE, UNSPECIFIED 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
--- NOTE | 2016-09-03 21:56 | PN ---
Progress Note, Physician Chief Complaint: doing well today no abd pain no dyspnea/fevers - Current Medication List Current Medications: Active Medications Alprazolam (Xanax -) 0.5 mg PO Q8H PRN PRN Reason: ANXIETY Last Admin: 09/02/16 22:31 Dose: 0.5 mg Atorvastatin Calcium (Lipitor -) 10 mg PO HS [facility] Last Admin: 09/02/16 22:30 Dose: 10 mg Bisacodyl (Dulcolax -) 10 mg PO BID [facility] Last Admin: 09/03/16 09:32 Dose: Not Given Guaifenesin (Robitussin Dm -) 10 ml PO Q6H PRN PRN Reason: COUGH Last Admin: 09/03/16 09:31 Dose: 10 ml Pantoprazole Sodium (Protonix 40mg Ivpb (Pre-Docked)) 100 mls @ 200 mls/hr IVPB DAILY [facility] Last Admin: 09/03/16 09:31 Dose: 200 mls/hr Levothyroxine Sodium (Synthroid -) 50 mcg PO DAILY@0700 [facility] Last Admin: 09/03/16 06:04 Dose: 50 mcg Polyethylene Glycol (Miralax (For Daily Use) -) 17 gm PO DAILY [facility] Last Admin: 09/03/16 09:34 Dose: Not Given Senna (Senna -) 1 tab PO [facility] Last Admin: 09/02/16 22:30 Dose: 1 tab Venlafaxine HCl (Effexor -) 75 mg PO BID [facility] Last Admin: 09/03/16 09:34 Dose: 75 mg - Objective Vital Signs: Vital Signs Temperature 98.3 F 09/03/16 16:00 Pulse Rate 94 H 09/03/16 16:00 Respiratory Rate 22 09/03/16 16:00 Blood Pressure 114/61 09/03/16 16:00 O2 Sat by Pulse Oximetry (%) 96 09/03/16 09:00 Constitutional: Yes: No Distress Eyes: Yes: WNL HENT: Yes: WNL Neck: Yes: WNL Cardiovascular: Yes: WNL Respiratory: Yes: WNL Gastrointestinal: Yes: WNL Genitourinary: Yes: WNL Musculoskeletal: Yes: WNL Extremities: Yes: WNL Edema: No Peripheral Pulses WNL: Yes Integumentary: Yes: WNL Wound/Incision: Yes: Clean/Dry Neurological: Yes: WNL ...Motor Strength: WNL Psychiatric: Yes: WNL Labs: CBC, BMP 09/02/16 05:10 09/02/16 05:10 INR, PTT INR 0.97 (0.82-1.09) 08/28/16 12:13 Problem List - Problems (1) Anemia Code(s): D64.9 - ANEMIA, UNSPECIFIED Qualifiers: Anemia type: other cause Other causes of anemia: other cause, not classified Qualified Code(s): D64.89 - Other specified anemias (2) GI bleed Code(s): K92.2 - GASTROINTESTINAL HEMORRHAGE, UNSPECIFIED (3) Hypothyroidism Code(s): E03.9 - HYPOTHYROIDISM, UNSPECIFIED Qualifiers: Hypothyroidism type: unspecified Qualified Code(s): E03.9 - Hypothyroidism, unspecified (4) CAD (coronary artery disease) Code(s): I25.10 - ATHSCL HEART DISEASE OF [place] CORONARY ARTERY W/O ANG PCTRS Qualifiers: Coronary Disease-Associated Artery/Lesion type: unspecified vessel or lesion type Associated angina: with unstable angina (5) COPD (chronic obstructive pulmonary disease) Code(s): J44.9 - CHRONIC OBSTRUCTIVE PULMONARY DISEASE, UNSPECIFIED 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
[2016-09-03] MEDS ORDERED: PT OWN MED DRAWER 7, Y5N ONE (22:11)
--- NOTE | 2016-09-03 22:14 | PN ---
Progress Note (short form) - Note Progress Note: Patient seen and examined S/P endoscopy with no obvious bleeding site detected Denies chest pain or SOB Last Vital Signs Temp Pulse Resp BP Pulse Ox 98.3 F 94 H 22 114/61 96 09/03/16 16:00 09/03/16 16:00 09/03/16 16:00 09/03/16 16:00 09/03/16 09:00 HEENT: TANYA, EOM Intact Oropharynx: No thrush, No mucositis Cor: RSR, No murmurs, No gallops Lungs: Clear to P&A Abd: Soft, Normal bowel sounds, No organomegaly Ext:No significant edema Skin: No rashes, Integument intact CBC, BMP 09/02/16 05:10 09/02/16 05:10 Current Medications Generic Name Dose Route Start Last Admin Trade Name Freq PRN Reason Stop Dose Admin Alprazolam 0.5 mg 09/01/16 23:28 09/02/16 22:31 Xanax - PO 0.5 mg Q8H PRN Administration ANXIETY Atorvastatin Calcium 10 mg 08/29/16 22:00 09/02/16 22:30 Lipitor - PO 10 mg HS [facility] Administration Bisacodyl 10 mg 09/01/16 22:00 09/03/16 09:32 Dulcolax - PO Not Given BID [facility] Guaifenesin 10 ml 08/31/16 09:34 09/03/16 09:31 Robitussin Dm - PO 10 ml Q6H PRN Administration COUGH Pantoprazole Sodium 100 mls @ 200 mls/hr 08/30/16 10:00 09/03/16 09:31 Protonix 40mg Ivpb (Pre-Docked) IVPB 200 mls/hr DAILY [facility] Administration Levothyroxine Sodium 50 mcg 08/30/16 07:00 09/03/16 06:04 Synthroid - PO 50 mcg DAILY@0700 [facility] Administration Polyethylene Glycol 17 gm 08/31/16 16:37 09/03/16 09:34 Miralax (For Daily Use) - PO Not Given DAILY [facility] Senna 1 tab 08/30/16 22:00 09/02/16 22:30 Senna - PO 1 tab HS [facility] Administration Venlafaxine HCl 75 mg 08/29/16 22:00 06/20/17 09:34 Effexor - PO 75 mg BID [facility] Administration Impression: Anemia GI Bleeding Cardiac arrhythmia S/P endoscopy without obvious bleeding site found Hypothyroidism Anxiety Continue with GI assessment with outpatient capsule Cardiac monitoring Recheck coags.
[2016-09-03] MEDS: ALPRAZolam 0.25 MG TABLET PO PRN (22:15)
[2016-09-03] MEDS: ATORVASTATIN CA 10 MG TABLET (FP) PO SCH (22:15)
[2016-09-03] MEDS: SENNOSIDES 8.6MG TABLET (FP) PO SCH (22:15)
[2016-09-04] MEDS: LEVOTHYROXINE NA 50 MCG TABLET (FP) PO SCH (06:18)
[2016-09-04 06:44] LABS: INR 0.91 (0.82-1.09)
[2016-09-04 06:46] LABS: ACTIVATED PTT 31.1 SECONDS (26.9-34.4)
[2016-09-04] MEDS ORDERED: PT OWN MED DRAWER 7, Y5N ONE (09:46)
[2016-09-04] MEDS: PANTOPRAZOLE SODIUM 100 ML IVPB SCH (09:50)
[2016-09-04] MEDS: VENLAFAXINE HCL 75 MG TABLET PO SCH (09:51)
[2016-09-04] MEDS: BISACODYL 5 MG TABLET.DR (FP) PO SCH (09:53)
[2016-09-04] MEDS: POLYETHYLENE GLYCOL 3350 119 GM BTL PO SCH (09:56)
[2016-09-04] MEDS ORDERED: METOPROLOL SUCCINATE 25 MG TAB.SR.24H (FP) PO SCH (10:00)
[2016-09-04] MEDS ORDERED: ACETAMINOPHEN 325 MG TABLET (FP) PO PRN (10:28)
[2016-09-04 10:35] VITALS: BP 135/62; PULSE 82; TEMP 98.3
--- NOTE | 2016-09-04 10:45 | PN ---
Progress Note, Physician Chief Complaint: OFF PLAVIX WILL NEED RECTAL HEMORRHOID SURGICALLY REMOVED - Current Medication List Current Medications: Active Medications Acetaminophen (Tylenol -) 650 mg PO Q6H PRN PRN Reason: FEVER OR PAIN Alprazolam (Xanax -) 0.5 mg PO Q8H PRN PRN Reason: ANXIETY Last Admin: 09/03/16 22:15 Dose: 0.5 mg Atorvastatin Calcium (Lipitor -) 10 mg PO HS [facility] Last Admin: 09/03/16 22:15 Dose: 10 mg Bisacodyl (Dulcolax -) 10 mg PO BID [facility] Last Admin: 09/04/16 09:53 Dose: 10 mg Guaifenesin (Robitussin Dm -) 10 ml PO Q6H PRN PRN Reason: COUGH Last Admin: 09/03/16 09:31 Dose: 10 ml Pantoprazole Sodium (Protonix 40mg Ivpb (Pre-Docked)) 100 mls @ 200 mls/hr IVPB DAILY [facility] Last Admin: 09/04/16 09:50 Dose: 200 mls/hr Levothyroxine Sodium (Synthroid -) 50 mcg PO DAILY@0700 [facility] Last Admin: 09/04/16 06:18 Dose: 50 mcg Metoprolol Succinate (Toprol Xl -) 25 mg PO DAILY [facility] Last Admin: 09/04/16 10:38 Dose: 25 mg Polyethylene Glycol (Miralax (For Daily Use) -) 17 gm PO DAILY [facility] Last Admin: 09/04/16 09:56 Dose: Not Given Senna (Senna -) 1 tab PO HS [facility] Last Admin: 09/03/16 22:15 Dose: 1 tab Venlafaxine HCl (Effexor -) 75 mg PO BID [facility] Last Admin: 09/04/16 09:51 Dose: 75 mg - Objective Vital Signs: Vital Signs Temperature 98.3 F 09/04/16 10:00 Pulse Rate 82 09/04/16 10:00 Respiratory Rate 20 09/04/16 10:00 Blood Pressure 135/62 09/04/16 10:00 O2 Sat by Pulse Oximetry (%) 96 09/03/16 22:00 Constitutional: Yes: Mild Distress Eyes: Yes: WNL HENT: Yes: WNL Neck: Yes: WNL Cardiovascular: Yes: WNL Respiratory: Yes: WNL Gastrointestinal: Yes: Rectal Bleeding Genitourinary: Yes: WNL Musculoskeletal: Yes: WNL Extremities: Yes: WNL Edema: No Peripheral Pulses WNL: Yes Integumentary: Yes: WNL Wound/Incision: Yes: Clean/Dry Neurological: Yes: WNL ...Motor Strength: WNL Psychiatric: Yes: Other Labs: CBC, BMP 09/02/16 05:10 09/02/16 05:10 INR, PTT INR 0.91 (0.82-1.09) 09/04/16 05:20 Problem List - Problems (1) Anemia Code(s): D64.9 - ANEMIA, UNSPECIFIED Qualifiers: Anemia type: other cause Other causes of anemia: other cause, not classified Qualified Code(s): D64.89 - Other specified anemias (2) GI bleed Code(s): K92.2 - GASTROINTESTINAL HEMORRHAGE, UNSPECIFIED (3) Hypothyroidism Code(s): E03.9 - HYPOTHYROIDISM, UNSPECIFIED Qualifiers: Hypothyroidism type: unspecified Qualified Code(s): E03.9 - Hypothyroidism, unspecified (4) CAD (coronary artery disease) Code(s): I25.10 - ATHSCL HEART DISEASE OF [place] CORONARY ARTERY W/O ANG PCTRS Qualifiers: Coronary Disease-Associated Artery/Lesion type: unspecified vessel or lesion type Associated angina: with unstable angina (5) COPD (chronic obstructive pulmonary disease) Code(s): J44.9 - CHRONIC OBSTRUCTIVE PULMONARY DISEASE, UNSPECIFIED 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
[2016-09-04 10:51] LABS: MCH 30.7 pg (25.7-33.7); MCHC 33.3 g/dl (32.0-36.0); MEAN CELL VOLUME 92.1 fl (80-96); MEAN PLT VOLUME 6.5 fl (7.5-11.1); PLATELET COUNT 421 K/MM3 (134-434); RDW 16.8 % (11.6-15.6); WHITE BLOOD COUNT 6.5 K/mm3 (4.0-10.0)
--- NOTE | 2016-09-04 11:15 | PN ---
Progress Note, Physician History of Present Illness: PULMONARY ALERT,OOB-CHAIR,-C/O CP.-SOB - Current Medication List Current Medications: Active Medications Acetaminophen (Tylenol -) 650 mg PO Q6H PRN PRN Reason: FEVER OR PAIN Alprazolam (Xanax -) 0.5 mg PO Q8H PRN PRN Reason: ANXIETY Last Admin: 09/03/16 22:15 Dose: 0.5 mg Atorvastatin Calcium (Lipitor -) 10 mg PO HS [facility] Last Admin: 09/03/16 22:15 Dose: 10 mg Bisacodyl (Dulcolax -) 10 mg PO BID [facility] Last Admin: 09/04/16 09:53 Dose: 10 mg Guaifenesin (Robitussin Dm -) 10 ml PO Q6H PRN PRN Reason: COUGH Last Admin: 09/03/16 09:31 Dose: 10 ml Pantoprazole Sodium (Protonix 40mg Ivpb (Pre-Docked)) 100 mls @ 200 mls/hr IVPB DAILY [facility] Last Admin: 09/04/16 09:50 Dose: 200 mls/hr Levothyroxine Sodium (Synthroid -) 50 mcg PO DAILY@0700 [facility] Last Admin: 09/04/16 06:18 Dose: 50 mcg Metoprolol Succinate (Toprol Xl -) 25 mg PO DAILY [facility] Last Admin: 09/04/16 10:38 Dose: 25 mg Polyethylene Glycol (Miralax (For Daily Use) -) 17 gm PO DAILY [facility] Last Admin: 09/04/16 09:56 Dose: Not Given Senna (Senna -) 1 tab PO [facility] Last Admin: 09/03/16 22:15 Dose: 1 tab Venlafaxine HCl (Effexor -) 75 mg PO BID [facility] Last Admin: 09/04/16 09:51 Dose: 75 mg - Objective Vital Signs: Vital Signs Temperature 98.3 F 09/04/16 10:00 Pulse Rate 82 09/04/16 10:00 Respiratory Rate 20 09/04/16 10:00 Blood Pressure 135/62 09/04/16 10:00 O2 Sat by Pulse Oximetry (%) 96 09/03/16 22:00 Constitutional: Yes: Well Nourished, Calm Eyes: Yes: WNL HENT: Yes: WNL, Other Cardiovascular: Yes: Regular Rate and Rhythm, S1, S2 Respiratory: Yes: CTA Bilaterally Gastrointestinal: Yes: Normal Bowel Sounds, Soft Extremities: Yes: WNL Edema: No Labs: CBC, BMP 09/04/16 10:40 09/02/16 05:10 INR, PTT INR 0.91 (0.82-1.09) 09/04/16 05:20 Problem List - Problems (1) Abnormal ECG Code(s): R94.31 - ABNORMAL ELECTROCARDIOGRAM [ECG] [EKG] (2) Anemia Code(s): D64.9 - ANEMIA, UNSPECIFIED Qualifiers: Anemia type: other cause Other causes of anemia: other cause, not classified Qualified Code(s): D64.89 - Other specified anemias (3) Hypothyroidism Code(s): E03.9 - HYPOTHYROIDISM, UNSPECIFIED Qualifiers: Hypothyroidism type: unspecified Qualified Code(s): E03.9 - Hypothyroidism, unspecified (4) CAD (coronary artery disease) Code(s): I25.10 - ATHSCL HEART DISEASE OF [place] CORONARY ARTERY W/O ANG PCTRS Qualifiers: Coronary Disease-Associated Artery/Lesion type: unspecified vessel or lesion type Associated angina: with unstable angina (5) COPD (chronic obstructive pulmonary disease) Code(s): J44.9 - CHRONIC OBSTRUCTIVE PULMONARY DISEASE, UNSPECIFIED 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
--- NOTE | 2016-09-04 12:27 | PN ---
Progress Note (short form) - Note Progress Note: CC: anemia S: no cp, palps, dizziness, sob. no further dark bm's Current Medications Generic Name Dose Route Start Last Admin Trade Name Marcy PRN Reason Stop Dose Admin Acetaminophen 650 mg 09/04/16 10:28 Tylenol - PO Q6H PRN FEVER OR PAIN Alprazolam 0.5 mg 09/01/16 23:28 09/03/16 22:15 Xanax - PO 0.5 mg Q8H PRN Administration ANXIETY Atorvastatin Calcium 10 mg 08/29/16 22:00 09/03/16 22:15 Lipitor - PO 10 mg HS ISRA[place] Administration Bisacodyl 10 mg 09/01/16 22:00 09/04/16 09:53 Dulcolax - PO 10 mg BID [place] Administration Guaifenesin 10 ml 08/31/16 09:34 09/03/16 09:31 Robitussin Dm - PO 10 ml Q6H PRN Administration COUGH Pantoprazole Sodium 100 mls @ 200 mls/hr 08/30/16 10:00 09/04/16 09:50 Protonix 40mg Ivpb (Pre-Docked) IVPB 200 mls/hr DAILY [place] Administration Levothyroxine Sodium 50 mcg 08/30/16 07:00 09/04/16 06:18 Synthroid - PO 50 mcg DAILY@0700 [place] Administration Metoprolol Succinate 25 mg 09/04/16 10:00 09/04/16 10:38 Toprol Xl - PO 25 mg DAILY [place] Administration Polyethylene Glycol 17 gm 08/31/16 16:37 09/04/16 09:56 Miralax (For Daily Use) - PO Not Given DAILY IS[place] Senna 1 tab 08/30/16 22:00 09/03/16 22:15 Senna - PO 1 tab HS ISRA[place] Administration Venlafaxine HCl 75 mg 08/29/16 22:00 09/04/16 09:51 Effexor - PO 75 mg BID IS[place] Administration Vital Signs Period Temp Pulse Resp BP Sys/Phillips Pulse Ox Last 24 Hr 97.4 F-98.6 F 72-94 18-22 114-135/55-64 96-96 nad, calm jvd flat, neck supple ctab, nl effort rrr nl s1, s2 no mrg + bs soft nt nd ext without e/c/c no jaundice, diaphoresis aaox3 CBC, BMP 09/04/16 10:40 09/02/16 05:10 EKG: nsr, av delay. lad. poor r wave progression. lae. diffuse t wave flattening/TWI. tele: sr CXR without pulm congestion. chronic ateletasis of RUL, (fissure displaced upwards) echo 07/2016: tds, nl lv, rv tds, no sig valve path, rvsp 30-40 mibi 08/2016: no scar/ischemia, nl lvef a/p: 81 yo wit h/o hypertension, hypercholesterolemia, CAD s/p myocardial infarction/PCI > 10 yrs ago, gastroesophageal reflux disease/ulcers/partial gastrectomy in her 20's (unable to absorb iron/on iron infusions) now with chronic anemia (last transfusion > 1 yr ago per patient), thyroid disease, anxiety and chronic obstructive pulmonary disease who presents with weakness, palps. anemia - several episodes of dark bm's and drop in hgb requiring prbcs on several occasions while here - s/p endoscopy 09/02, no significant abnormalities noted - per charts, planned for outpt capsule study - ongoing eval/mgm't per pmd/GI/heme. - Pt has no recent PCI so given significant anemia requiring prbcs would hold plavix indefinitely. she was started back on asa while here but then had recurrent hgb drop requiring prbcs so would also hold aspirin for now as well until GI w/u can be completed (outpt capsule study planned) and source identified. CAD - h/o PCI > 10 years ago. Recent troponin elevation/nstemi thought to be 2/2 demand. no ischemia on mibi. - Now off asa and plavix in light of significant hemoglobin drop after starting dapt, plans as above. - recent echo here with nl lvef, no wma's - cont low dose statin. - Resume toprol 25 qd as bp improved now. SVT, slow a-tach: - HR's controlled here. In SR now. - will resume home toprol as bp improved now HTN - stable, resume home toprol HL - on statin cardiac mcintyre stable for dc
--- NOTE | 2016-09-04 13:13 | DS ---
Physical Examination Vital Signs: Vital Signs Temperature 98.3 F 09/04/16 10:00 Pulse Rate 82 09/04/16 10:00 Respiratory Rate 20 09/04/16 10:00 Blood Pressure 135/62 09/04/16 10:00 O2 Sat by Pulse Oximetry (%) 96 09/04/16 09:00 Findings/Remarks: refused hemmrhoid surgery, wants to go home Constitutional: Yes: No Distress Labs: CBC, BMP 09/04/16 10:40 09/02/16 05:10 Discharge Summary Reason For Visit: ANEMIA; HYPOTHYROIDISM Current Active Problems Abnormal ECG (Acute) Anemia (Acute) GI bleed (Acute) Hypothyroidism (Acute) Mycobacteria, atypical (Acute) Rectal hemorrhage (Acute) Procedures: Principal: egd/colonoscopy Other Procedures: labs Hospital Course: admitted for gi bleed, gi workup done, will need rectal hemmroid surgery but refused, scheduled with gi for capsule study as out patient Condition: Guarded - Instructions Diet, Activity, Other Instructions: low salt see gi for capsule study Referrals: Mavis Crespo MD [Primary Care Provider] - Disposition: HOME - Home Medications Comprehensive Discharge Medication List: Ambulatory Orders Cholecalciferol (Vitamin D3) [Vitamin D] 2,000 unit PO DAILY 06/17/13 Losartan Potassium 50 mg PO DAILY 09/24/15 Aspirin [Ecotrin] 81 mg PO DAILY 08/12/16 Atorvastatin Calcium [Lipitor] 10 mg PO DAILY 08/12/16 Aspirin Coated [Ecotrin -] 81 mg PO DAILY #30 tab 08/15/16 Clopidogrel Bisulfate [Plavix -] 75 mg PO DAILY #30 tablet 08/15/16 Metoprolol Succinate [Toprol XL -] 25 mg PO DAILY #30 tab 08/15/16 Alprazolam [Xanax] 0.5 mg PO TID PRN 08/28/16 Sucralfate [Carafate -] 1 gm PO QID 08/28/16 Venlafaxine HCl [Effexor -] 75 mg PO BID 08/28/16
--- NOTE | 2016-09-05 15:36 | PATH ---
Surgical Pathology Report Patient Name: MELODY GUARDADO [facility]. Rec. #: [id number] /Age/Gender: 1935 (Age: 81) / F Account: [id number] Location: ICU [employer]OR Taken: 09/02/2016 Received: 09/04/2016 Reported: 09/05/2016 Physicians: Irvin Patel M.D. Specimen(s) Received BX ANASTOSIS SITE Clinical History Anemia, guaiac positive stool Gastritis, hemorrhoids Final Diagnosis STOMACH, ANASTOMOSIS, BIOPSY: GASTRIC MUCOSA WITH HYPERPLASTIC CHANGES AND ASSOCIATED CHRONIC INFLAMMATION, ALONG WITH PORTIONS OF SMALL INTESTINAL MUCOSA WITH CHRONIC INFLAMMATION. IMMUNOSTAIN FOR H. PYLORI IS NEGATIVE. Electronically Signed Michael Hollins M.D. Gross Description Received in formalin, labeled "biopsy anastomosis site" are 5 quach, irregular portions of soft tissue ranging from 0.1-0.3 cm. in greatest dimension. The specimens are submitted in toto in one cassette. 09/04/2016 [facility]09/04/2016
== END 2016-09-04 14:00 | disposition home or self-care (01) | DRG 812 ==
LOC: JER 11:37 → JERBED 16:11 → JICU 17:42 → J2W 08-29 18:29
PROVIDERS: ADMIT Family Medicine; ATTEND Family Medicine
PROC: 30233N1 Transfusion of Nonautologous Red Blood Cells into Peripheral Vein, Percutaneous Approach (ICD-10-PCS; 2016-08-28)
PROC: 0DB68ZX Excision of Stomach, Via Natural or Artificial Opening Endoscopic, Diagnostic (ICD-10-PCS; 2016-09-02)
PROC: 0DJD8ZZ Inspection of Lower Intestinal Tract, Via Natural or Artificial Opening Endoscopic (ICD-10-PCS; principal; 2016-09-02 14:00)
DX: D64.9 Anemia, unspecified (principal); I47.1 Supraventricular tachycardia; E03.9 Hypothyroidism, unspecified; J44.9 Chronic obstructive pulmonary disease, unspecified; I25.10 Atherosclerotic heart disease of native coronary artery without angina pectoris; Z98.61 Coronary angioplasty status; I10 Essential (primary) hypertension; E78.5 Hyperlipidemia, unspecified; K21.9 Gastro-esophageal reflux disease without esophagitis; F41.9 Anxiety disorder, unspecified; Z87.891 Personal history of nicotine dependence; K64.8 Other hemorrhoids
CPT/HCPCS: 36415; 36430; 71010-TC; 80048; 80053; 80061; 81003; 82272; 82550; 82607; 82728; 82747; 83540; 83550; 83615; 83721; 83880; 84439; 84443; 84481; 84484; 85014; 85025; 85027; 85044; 85610; 85730; 86850; 86880; 86900; 86901; 86922; 87086; 88305-TC; 93005; 93010; 97116-GP; 99285-25; J1756; P9038; P9058

== ENCOUNTER 2017-01-31 07:18 | Day surgery (SDC) | payer OTHER ==
[2017-01-31] MEDS ORDERED: IRON SUCROSE INJECTION 100 MG in SODIUM CHLORIDE 100 ML IVPB ONE (09:30)
[2017-01-31 14:53] VITALS: TEMP 98.1
[2017-01-31 14:54] VITALS: BP 137/68; PULSE 74
== END 2017-01-31 13:24 | disposition home or self-care (01) ==
LOC: JONCNONCHE 07:18 → J7W 09:34 → JONCNONCHE 13:24
PROVIDERS: ATTEND Internal Medicine Hematology & Oncology
PROC: 3E033GC Introduction of Other Therapeutic Substance into Peripheral Vein, Percutaneous Approach (ICD-10-PCS; principal; 2017-01-31)
DX: D50.9 Iron deficiency anemia, unspecified (principal); K90.9 Intestinal malabsorption, unspecified
CPT/HCPCS: 96417; J1756

== ENCOUNTER 2017-02-17 07:19 | Day surgery (SDC) | payer OTHER ==
[2017-02-17] MEDS ORDERED: IRON SUCROSE INJECTION 100 MG in SODIUM CHLORIDE 100 ML IVPB ONE (13:00)
[2017-02-17 13:03] VITALS: BP 130/64; PULSE 83; TEMP 98
== END 2017-02-17 11:15 | disposition home or self-care (01) ==
LOC: JONCCHEMO 07:19 → J7W 10:29 → JONCCHEMO 11:15
PROVIDERS: ATTEND Internal Medicine Hematology & Oncology
PROC: 3E033GC Introduction of Other Therapeutic Substance into Peripheral Vein, Percutaneous Approach (ICD-10-PCS; principal; 2017-02-17)
DX: D50.9 Iron deficiency anemia, unspecified (principal); K90.9 Intestinal malabsorption, unspecified
CPT/HCPCS: 96365; J1756

== ENCOUNTER 2017-03-01 13:22 | Emergency (ER) | payer OTHER ==
--- NOTE | 2017-03-01 13:28 | PDOC ---
History of Present Illness - General History Source: Patient Exam Limitations: No Limitations - History of Present Illness Initial Comments: 03/01/17 14:08 Chief complaint: Fall with shoulder injury Patient is an 81-year-old female, history of hypertension, anemia, hypothyroid, elevated cholesterol and anxiety who states that she slipped on ice today falling on her left side injuring her left shoulder. No head injury no LOC, patient is not on any anticoagulation or antiplatelet therapy. Patient was ambulatory after the fall and is alert and oriented. She is with a family member who confirms her story. GENERAL/CONSTITUTIONAL: No fever, weakness. dizziness HEAD, EYES, EARS, NOSE AND THROAT: No change in vision. No ear pain or discharge. No sore throat. CARDIOVASCULAR: No chest pain RESPIRATORY: No shortness of breath or cough GASTROINTESTINAL: No pain, nausea, vomiting, diarrhea or constipation GENITOURINARY: No dysuria MUSCULOSKELETAL: No neck or back pain, + left shoulder SKIN: No rash NEUROLOGIC: No headache, vertigo, loss of consciousness, or loss of sensation. GENERAL: The patient is awake, alert, and fully oriented, in no acute distress. HEAD: Normal with no signs of trauma. EYES: Pupils equal, round and reactive to light, sclera anicteric, conjunctiva clear. ENT: pharynx: no erythema, no exudate, uvula midline NECK: supple CHEST: clear, nontender, rr ABD: soft, nontender EXTREMITIES: Left upper extremity, no clavicular tenderness swelling or bruising , tenderness to the left upper humeral area with pain, no ecchymosis or wounds, and unable to fully move, elbow no pain or tenderness, forearm wrist and hand without injury, neurovascular intact. Rest of extremities, normal range of motion, no edema. NEUROLOGICAL: Normal speech, gait not tested, cranial nerves II through XII grossly intact, on injured extremities have good strength, no focal findings SKIN: Warm, Dry 03/01/17 17:55 <Yue Ghotra - Last Filed: 03/01/17 17:55> <Mary Okeefe - Last Filed: 03/02/17 11:22> - General Chief Complaint: Injury Stated Complaint: FALL Time Seen by Provider: 03/01/17 13:27 Past History - Past Medical History Anemia: Yes Asthma: No Cancer: No Cardiac Disorders: Yes (MT 10 year ago 1 stent) CVA: No COPD: Yes (H/O PNEUMONIA) CHF: No Dementia: No Diabetes: No GI Disorders: Yes (ACID REFLUX) Disorders: No HTN: Yes Hypercholesterolemia: Yes Liver Disease: No Seizures: No Thyroid Disease: Yes - Surgical History Abdominal Surgery: Yes (PARTIAL GASTRECTOMY) Appendectomy: Yes Cardiac Surgery: Yes (stent) Cholecystectomy: Yes Lung Surgery: Yes Neurologic Surgery: No Orthopedic Surgery: No - Suicide/Smoking/Psychosocial Hx Smoking Status: Yes Smoking History: Former smoker Have you smoked in the past 12 months: No Number of Cigarettes Smoked Daily: 0 If you are a former smoker, when did you quit?: 35 YRS AGO Hx Alcohol Use: No Drug/Substance Use Hx: No Substance Use Type: None Hx Substance Use Treatment: No <Yue Ghotra - Last Filed: 03/01/17 17:55> <Mary Okeefe - Last Filed: 03/02/17 11:22> - Past Medical History Allergies/Adverse Reactions: Allergies Allergy/AdvReac Type Severity Reaction Status Date / Time Penicillins Allergy Severe Swelling Verified 03/01/17 13:37 dicloxacillin [Dicloxacillin] Allergy Intermediate Rash Verified 03/01/17 13:37 Home Medications: Ambulatory Orders Cholecalciferol (Vitamin D3) [Vitamin D] 2,000 unit PO DAILY 06/17/13 Losartan Potassium 50 mg PO DAILY 09/24/15 Alprazolam [Xanax] 0.5 mg PO TID PRN 08/28/16 Sucralfate [Carafate -] 1 gm PO QID 08/28/16 Atorvastatin Calcium [Lipitor] 10 mg PO DAILY #30 tab 09/04/16 Levothyroxine [Synthroid -] 50 mcg PO DAILY@0700 tablet 09/04/16 Metoprolol Succinate [Toprol XL -] 25 mg PO DAILY #30 tab 09/04/16 Sennosides [Senna -] 1 tab PO HS tablet 09/04/16 Venlafaxine HCl [Effexor -] 75 mg PO BID #60 tab 09/04/16 Oxycodone HCl/Acetaminophen [Percocet 5-325 mg Tablet] 1 tab PO Q6H PRN #20 tablet MDD 4 03/01/17 *Physical Exam - Vital Signs Last Vital Signs Temp Pulse Resp BP Pulse Ox 97.7 F 80 18 140/80 100 03/01/17 13:38 03/01/17 15:55 03/01/17 15:55 03/01/17 15:55 03/01/17 15:55 <Mary Okeefe - Last Filed: 03/02/17 11:22> Procedures - Splinting Sling: Yes <Yue Ghotra - Last Filed: 03/01/17 17:55> ED Treatment Course - Medications Given in the ED: ED Medications Discontinued Medications Generic Name Dose Route Start Last Admin Trade Name Freq PRN Reason Stop Dose Admin Oxycodone/Acetaminophen 1 combo 03/01/17 13:59 03/01/17 14:10 Percocet 5/325 - PO 03/01/17 14:00 1 combo ONCE ONE Administration <Mary Okeefe - Last Filed: 03/02/17 11:22> Medical Decision Making - Medical Decision Making 03/01/17 15:35 81-year-old female not on blood thinners with mechanical fall, witnessed by family, fell on the ice with left shoulder pain, x-rays show no acute fracture or dislocation. Patient is ambulatory no other injuries or findings. Patient is with family, will send home with pain medicine and she will follow-up with Dr. amaya who she seen before. family will stay with her. 03/01/17 17:55 <Yue Ghotra - Last Filed: 03/01/17 17:55> *DC/Admit/Observation/Transfer - Discharge Dispostion Admit: No <Yue Ghotra - Last Filed: 03/01/17 17:55> - Attestations Physician Attestion: I reviewed the case with the mid-level practitioner and agree with the mid- level practitioner's assessment, diagnosis and disposition. <Mary Okeefe - Last Filed: 03/02/17 11:22> Diagnosis at time of Disposition: Injury of shoulder Qualifiers: Encounter type: initial encounter Laterality: left Qualified Code(s): S49.92XA - Unspecified injury of left shoulder and upper arm, initial encounter - Discharge Dispostion Disposition: HOME Condition at time of disposition: Stable - Prescriptions Prescriptions: Oxycodone HCl/Acetaminophen [Percocet 5-325 mg Tablet] 1 tab PO Q6H PRN #20 tablet MDD 4 PRN Reason: Pain - Referrals Referrals: Mavis Crespo MD [Primary Care Provider] - Storm Amaya MD [Staff Physician] - - Patient Instructions Printed Discharge Instructions: How to Use a Sling Additional Instructions: Elevate, wear splint You can apply ice for 20 minutes every 2 hours for the next 2 days Motrin 400 mg every 6 hours for pain. Percocet can be taken one tablet every 6 hours does not need to be taken if not severe pain Call the orthopedist Friday
[2017-03-01 13:56] VITALS: TEMP 97.7; BMI 25.4
[2017-03-01 15:56] VITALS: BP 140/80; PULSE 80
== END 2017-03-01 15:56 | disposition home or self-care (01) ==
LOC: JER 13:22
DX: S49.82XA Other specified injuries of left shoulder and upper arm, initial encounter (principal); W00.2XXA Other fall from one level to another due to ice and snow, initial encounter; Y93.01 Activity, walking, marching and hiking; Y92.414 Local residential or business street as the place of occurrence of the external cause; I25.10 Atherosclerotic heart disease of native coronary artery without angina pectoris; I10 Essential (primary) hypertension; Z95.5 Presence of coronary angioplasty implant and graft; I25.2 Old myocardial infarction; E78.00 Pure hypercholesterolemia, unspecified; D64.9 Anemia, unspecified; E03.9 Hypothyroidism, unspecified
CPT/HCPCS: 73030-TC-LT; 73060-TC-LT; 99281-25

== ENCOUNTER 2017-05-02 07:37 | Day surgery (SDC) | payer OTHER ==
[2017-05-02] MEDS ORDERED: IRON SUCROSE INJECTION 100 MG in SODIUM CHLORIDE 100 ML IVPB ONE (10:30)
[2017-05-02 13:09] VITALS: BP 118/70; PULSE 74
[2017-05-02 13:10] VITALS: TEMP 98.2
== END 2017-05-02 12:35 | disposition home or self-care (01) ==
LOC: JONCNONCHE 07:37 → J7W 11:04 → JONCNONCHE 12:35
PROVIDERS: ATTEND Internal Medicine Hematology & Oncology
PROC: 3E033GC Introduction of Other Therapeutic Substance into Peripheral Vein, Percutaneous Approach (ICD-10-PCS; principal; 2017-05-02)
DX: D50.9 Iron deficiency anemia, unspecified (principal)
CPT/HCPCS: 96365; J1756

== ENCOUNTER 2017-12-17 07:39 | Day surgery (SDC) | payer OTHER ==
[2017-12-17] MEDS ORDERED: IRON SUCROSE INJECTION 100 MG in SODIUM CHLORIDE 100 ML IVPB ONE (09:00)
[2017-12-17 11:06] VITALS: BP 110/62; PULSE 80; TEMP 97.5
== END 2017-12-17 10:00 | disposition home or self-care (01) ==
LOC: JONCNONCHE 07:39 → J7W 09:14 → JONCNONCHE 10:00
PROVIDERS: ATTEND Internal Medicine Hematology & Oncology
PROC: 3E033GC Introduction of Other Therapeutic Substance into Peripheral Vein, Percutaneous Approach (ICD-10-PCS; principal; 2017-12-17)
DX: D50.9 Iron deficiency anemia, unspecified (principal)
CPT/HCPCS: 96365; J1756

== ENCOUNTER 2017-12-24 07:38 | Day surgery (SDC) | payer OTHER ==
[2017-12-24] MEDS ORDERED: IRON SUCROSE INJECTION 100 MG in SODIUM CHLORIDE 100 ML IVPB ONE (10:00)
[2017-12-24 17:37] VITALS: TEMP 98
[2017-12-24 17:41] VITALS: BP 116/65; PULSE 66
== END 2017-12-24 11:45 | disposition home or self-care (01) ==
LOC: JONCNONCHE 07:38 → J7W 10:30 → JONCNONCHE 11:45
PROVIDERS: ATTEND Internal Medicine Hematology & Oncology
PROC: 3E033GC Introduction of Other Therapeutic Substance into Peripheral Vein, Percutaneous Approach (ICD-10-PCS; principal; 2017-12-24)
DX: D50.9 Iron deficiency anemia, unspecified (principal)
CPT/HCPCS: 96365; J1756

== ENCOUNTER 2018-02-11 07:44 | Day surgery (SDC) | payer OTHER ==
[2018-02-11] MEDS ORDERED: IRON SUCROSE INJECTION 100 MG in SODIUM CHLORIDE 100 ML IVPB ONE (10:00)
[2018-02-11 16:56] VITALS: TEMP 97.5
[2018-02-11 16:58] VITALS: BP 140/64; PULSE 68
== END 2018-02-11 13:45 | disposition home or self-care (01) ==
LOC: JONCNONCHE 07:44 → J7W 12:55 → JONCNONCHE 13:45
PROVIDERS: ATTEND Internal Medicine Hematology & Oncology
PROC: 3E033GC Introduction of Other Therapeutic Substance into Peripheral Vein, Percutaneous Approach (ICD-10-PCS; principal; 2018-02-11)
DX: D50.9 Iron deficiency anemia, unspecified (principal)
CPT/HCPCS: 96365; J1756

== ENCOUNTER 2018-03-25 05:46 | Day surgery (SDC) | payer OTHER ==
[2018-03-25] MEDS ORDERED: IRON SUCROSE INJECTION 100 MG in SODIUM CHLORIDE 100 ML IVPB ONE (09:00)
[2018-03-25 13:17] VITALS: TEMP 97.6
[2018-03-25 13:27] VITALS: BP 132/69; PULSE 74
== END 2018-03-25 10:15 | disposition home or self-care (01) ==
LOC: JONCCHEMO 05:46 → J7W 09:10 → JONCCHEMO 10:15
PROVIDERS: ATTEND Internal Medicine Hematology & Oncology
PROC: 3E033GC Introduction of Other Therapeutic Substance into Peripheral Vein, Percutaneous Approach (ICD-10-PCS; principal; 2018-03-25)
DX: D50.9 Iron deficiency anemia, unspecified (principal)
CPT/HCPCS: 96365; J1756

== ENCOUNTER 2018-04-01 09:53 | Day surgery (SDC) | payer OTHER ==
[2018-04-01] MEDS ORDERED: IRON SUCROSE INJECTION 200 MG in SODIUM CHLORIDE 100 ML IVPB ONE (11:00)
[2018-04-01 14:51] VITALS: TEMP 97.4
[2018-04-01 14:53] VITALS: BP 119/66; PULSE 70
== END 2018-04-01 11:45 | disposition home or self-care (01) ==
LOC: JONCNONCHE 09:53 → J7W 10:20 → JONCNONCHE 11:45
PROVIDERS: ATTEND Internal Medicine Hematology & Oncology
PROC: 3E033GC Introduction of Other Therapeutic Substance into Peripheral Vein, Percutaneous Approach (ICD-10-PCS; principal; 2018-04-01)
DX: D50.9 Iron deficiency anemia, unspecified (principal)
CPT/HCPCS: 96365; J1756

== ENCOUNTER 2019-09-13 06:12 | Day surgery (SDC) | payer OTHER ==
[2019-09-13] MEDS ORDERED: IRON SUCROSE INJECTION 200 MG in SODIUM CHLORIDE 100 ML IVPB ONE (10:00)
[2019-09-13 14:01] LABS: BASO % 0.5 % (0-2.0); EOS % 1.1 % (0-4.5); HEMATOCRIT 27.6 % (32.4-45.2); LYMPH % 11.7 % (8-40); MCHC 32.6 g/dl (32.0-36.0); MEAN CELL VOLUME 82.6 fl (80-96); MEAN PLT VOLUME 7.1 fl (7.5-11.1); MONO % 6.6 % (3.8-10.2); NEUT % 80.1 % (42.8-82.8); PLATELET COUNT 565 K/MM3 (134-434); RBC 3.34 M/mm3 (3.60-5.2); RDW 19.2 % (11.6-15.6); WHITE BLOOD COUNT 7.6 K/mm3 (4.0-10.0)
[2019-09-13 16:17] VITALS: TEMP 98.8
[2019-09-13 16:18] VITALS: BP 115/69; PULSE 89
== END 2019-09-13 15:00 | disposition home or self-care (01) ==
LOC: JONCNONCHE 06:12
PROVIDERS: ATTEND Nurse Practitioner Family
PROC: 3E033GC Introduction of Other Therapeutic Substance into Peripheral Vein, Percutaneous Approach (ICD-10-PCS; principal; 2019-09-13)
DX: D50.9 Iron deficiency anemia, unspecified (principal)
CPT/HCPCS: 36415; 82728; 85025; 96365; J1756

== ENCOUNTER 2019-09-21 07:21 | Day surgery (SDC) | payer OTHER ==
[2019-09-21] MEDS ORDERED: HYDROCORTISONE SOD SUCCINATE 100 MG/2 ML VIAL IVPUSH PRN (09:59)
[2019-09-21] MEDS ORDERED: diphenhydrAMINE HCL 25 MG CAPSULE (FP) PO PRN (09:59)
[2019-09-21] MEDS ORDERED: IRON SUCROSE INJECTION 200 MG in SODIUM CHLORIDE 100 ML IVPB ONE (11:00)
[2019-09-21 14:26] LABS: BASO % 0.9 % (0-2.0); EOS % 0.7 % (0-4.5); HEMATOCRIT 28.8 % (32.4-45.2); HEMOGLOBIN 9.1 GM/dL (10.7-15.3); LYMPH % 11.4 % (8-40); MCHC 31.7 g/dl (32.0-36.0); MEAN CELL VOLUME 82.2 fl (80-96); MEAN PLT VOLUME 7.4 fl (7.5-11.1); MONO % 5.5 % (3.8-10.2); NEUT % 81.5 % (42.8-82.8); PLATELET COUNT 537 K/MM3 (134-434); RBC 3.51 M/mm3 (3.60-5.2); RDW 19.9 % (11.6-15.6); WHITE BLOOD COUNT 8.3 K/mm3 (4.0-10.0)
[2019-09-21 14:58] VITALS: BP 104/62; PULSE 84; TEMP 98.1
== END 2019-09-21 13:40 | disposition home or self-care (01) ==
LOC: JONCNONCHE 07:21
PROVIDERS: ATTEND Internal Medicine Hematology & Oncology
PROC: 3E033GC Introduction of Other Therapeutic Substance into Peripheral Vein, Percutaneous Approach (ICD-10-PCS; principal; 2019-09-21)
DX: D50.9 Iron deficiency anemia, unspecified (principal)
CPT/HCPCS: 36415; 85025; 96365; J1756

== ENCOUNTER 2019-09-28 07:16 | Day surgery (SDC) | payer OTHER ==
[2019-09-28] MEDS ORDERED: diphenhydrAMINE HCL 25 MG CAPSULE (FP) PO PRN (13:00)
[2019-09-28] MEDS ORDERED: HYDROCORTISONE SOD SUCCINATE 100 MG/2 ML VIAL IVPUSH PRN (13:00)
[2019-09-28] MEDS ORDERED: IRON SUCROSE INJECTION 200 MG in SODIUM CHLORIDE 100 ML IVPB ONE (13:30)
[2019-09-28 13:50] LABS: HEMATOCRIT 28.8 % (32.4-45.2); HEMOGLOBIN 9.2 GM/dL (10.7-15.3); LYMPH % 11.1 % (8-40); MCH 26.5 pg (25.7-33.7); MCHC 31.9 g/dl (32.0-36.0); MEAN PLT VOLUME 7.4 fl (7.5-11.1); MONO % 5.8 % (3.8-10.2); NEUT % 81.1 % (42.8-82.8); PLATELET COUNT 486 K/MM3 (134-434); RBC 3.47 M/mm3 (3.60-5.2); RDW 20.6 % (11.6-15.6); WHITE BLOOD COUNT 6.9 K/mm3 (4.0-10.0)
[2019-09-28 14:50] LABS: ANISOCYTOSIS 2+; MACROCYTOSIS 2+; PLATELET ESTIMATE NORMAL
[2019-09-28 15:58] VITALS: TEMP 98
[2019-09-28 15:59] VITALS: BP 132/69; PULSE 107
== END 2019-09-28 14:45 | disposition home or self-care (01) ==
LOC: JONCNONCHE 07:16
PROVIDERS: ATTEND Internal Medicine Hematology & Oncology
PROC: 3E033GC Introduction of Other Therapeutic Substance into Peripheral Vein, Percutaneous Approach (ICD-10-PCS; principal; 2019-09-28)
DX: D50.9 Iron deficiency anemia, unspecified (principal)
CPT/HCPCS: 36415; 85025; 96365; J1756

== ENCOUNTER 2019-10-05 07:16 | Day surgery (SDC) | payer OTHER ==
[2019-10-05 13:11] LABS: BASO % 0.8 % (0-2.0); EOS % 1.2 % (0-4.5); HEMATOCRIT 29.8 % (32.4-45.2); HEMOGLOBIN 9.6 GM/dL (10.7-15.3); LYMPH % 14.1 % (8-40); MCH 27.2 pg (25.7-33.7); MCHC 32.4 g/dl (32.0-36.0); MEAN CELL VOLUME 84.1 fl (80-96); MEAN PLT VOLUME 7.3 fl (7.5-11.1); MONO % 5.8 % (3.8-10.2); NEUT % 78.1 % (42.8-82.8); PLATELET COUNT 451 K/MM3 (134-434); RBC 3.54 M/mm3 (3.60-5.2); RDW 21.4 % (11.6-15.6); WHITE BLOOD COUNT 5.7 K/mm3 (4.0-10.0)
[2019-10-05 13:35] LABS: BLOOD UREA NITROGEN 10.1 mg/dL (7-18); CREATININE 0.9 mg/dL (0.55-1.3); POTASSIUM 4.3 mmol/L (3.5-5.1)
[2019-10-05 13:37] LABS: ALBUMIN 3.3 g/dl (3.4-5.0); BILIRUBIN,DIRECT 0.1 mg/dL (0.0-0.2); BILIRUBIN,TOTAL 0.4 mg/dL (0.2-1); TOT PROT 7.1 g/dl (6.4-8.2)
[2019-10-05] MEDS ORDERED: IRON SUCROSE INJECTION 200 MG in SODIUM CHLORIDE 100 ML IVPB ONE (13:45)
[2019-10-05 14:56] LABS: ANISOCYTOSIS 1+; MACROCYTOSIS 1+; PLATELET ESTIMATE NORMAL
[2019-10-05 17:14] VITALS: PULSE 85; TEMP 98.6
[2019-10-05 17:15] VITALS: BP 129/75
== END 2019-10-05 14:45 | disposition home or self-care (01) ==
LOC: JONCCHEMO 07:16
PROVIDERS: ATTEND Internal Medicine Hematology & Oncology
PROC: 3E033GC Introduction of Other Therapeutic Substance into Peripheral Vein, Percutaneous Approach (ICD-10-PCS; principal; 2019-10-05)
DX: D50.9 Iron deficiency anemia, unspecified (principal)
CPT/HCPCS: 36415; 80048; 80076; 83735; 85025; 96365; J1756

== ENCOUNTER 2019-10-12 07:07 | Day surgery (SDC) | payer OTHER ==
[2019-10-12] MEDS ORDERED: diphenhydrAMINE HCL 25 MG CAPSULE (FP) PO PRN (12:37)
[2019-10-12] MEDS ORDERED: IRON SUCROSE INJECTION 200 MG in SODIUM CHLORIDE 100 ML IVPB ONE (13:00)
[2019-10-12] MEDS ORDERED: HYDROCORTISONE SOD SUCCINATE 100 MG/2 ML VIAL IVPUSH ONE (13:00)
[2019-10-12 13:32] LABS: BASO % 0.4 % (0-2.0); HEMATOCRIT 29.6 % (32.4-45.2); HEMOGLOBIN 9.5 GM/dL (10.7-15.3); LYMPH % 13.2 % (8-40); MCH 27.8 pg (25.7-33.7); MCHC 32.1 g/dl (32.0-36.0); MEAN CELL VOLUME 86.5 fl (80-96); MEAN PLT VOLUME 7.4 fl (7.5-11.1); MONO % 5.5 % (3.8-10.2); NEUT % 79.9 % (42.8-82.8); PLATELET COUNT 396 K/MM3 (134-434); RBC 3.42 M/mm3 (3.60-5.2); RDW 21.4 % (11.6-15.6); WHITE BLOOD COUNT 7.9 K/mm3 (4.0-10.0)
[2019-10-12 14:12] LABS: ALBUMIN 3.5 g/dl (3.4-5.0); BLOOD UREA NITROGEN 18.2 mg/dL (7-18); CALCIUM 9.1 mg/dL (8.5-10.1); CREATININE 0.9 mg/dL (0.55-1.3); MAGNESIUM 2.3 mg/dL (1.8-2.4); TOT PROT 7.4 g/dl (6.4-8.2)
[2019-10-12 14:15] LABS: BILIRUBIN,TOTAL 0.3 mg/dL (0.2-1)
[2019-10-12 14:51] LABS: ANISOCYTOSIS 1+; MACROCYTOSIS 1+; PLATELET ESTIMATE NORMAL
[2019-10-12 17:58] VITALS: BP 131/70; PULSE 81; TEMP 98.5
== END 2019-10-12 14:45 | disposition home or self-care (01) ==
LOC: JONCNONCHE 07:07
PROVIDERS: ATTEND Internal Medicine Hematology & Oncology
PROC: 3E033GC Introduction of Other Therapeutic Substance into Peripheral Vein, Percutaneous Approach (ICD-10-PCS; principal; 2019-10-12)
DX: D50.9 Iron deficiency anemia, unspecified (principal)
CPT/HCPCS: 36415; 80053; 83735; 85025; 96365; J1756

== ENCOUNTER 2019-12-21 06:35 | Day surgery (SDC) | payer OTHER ==
[2019-12-21] MEDS ORDERED: diphenhydrAMINE HCL 25 MG CAPSULE (FP) PO PRN (11:54)
[2019-12-21 12:27] LABS: BASO % 0.5 % (0-2.0); EOS % 1.2 % (0-4.5); HEMATOCRIT 29.7 % (32.4-45.2); HEMOGLOBIN 9.7 GM/dL (10.7-15.3); LYMPH % 13.6 % (8-40); MCH 27.5 pg (25.7-33.7); MCHC 32.7 g/dl (32.0-36.0); MEAN CELL VOLUME 84.1 fl (80-96); MEAN PLT VOLUME 7.5 fl (7.5-11.1); MONO % 6.9 % (3.8-10.2); NEUT % 77.8 % (42.8-82.8); PLATELET COUNT 422 K/MM3 (134-434); RBC 3.53 M/mm3 (3.60-5.2); RDW 16.8 % (11.6-15.6); WHITE BLOOD COUNT 7.6 K/mm3 (4.0-10.0)
[2019-12-21] MEDS ORDERED: IRON SUCROSE INJECTION 200 MG in SODIUM CHLORIDE 100 ML IVPB ONE (13:00)
[2019-12-21] MEDS ORDERED: HYDROCORTISONE SOD SUCCINATE 100 MG/2 ML VIAL IVPUSH ONE (13:00)
[2019-12-21 15:21] VITALS: BP 114/65; PULSE 88; TEMP 98.4
== END 2019-12-21 13:10 | disposition home or self-care (01) ==
LOC: JONCNONCHE 06:35
PROVIDERS: ATTEND Internal Medicine Hematology & Oncology
PROC: 3E033GC Introduction of Other Therapeutic Substance into Peripheral Vein, Percutaneous Approach (ICD-10-PCS; principal; 2019-12-21)
DX: D50.9 Iron deficiency anemia, unspecified (principal)
CPT/HCPCS: 36415; 85025; 96365; J1756

== ENCOUNTER 2019-12-30 07:14 | Day surgery (SDC) | payer OTHER ==
--- OUTSIDE RECORDS SUMMARY | 2019-12-30 07:18 | XMS ---
:1935 Author Organization [facility] Care Team Providers Name Role Phone Zak Unavailable [phone] Zak Unavailable [phone] Zak Unavailable [phone] Zak Unavailable [phone] Zak Unavailable [phone] Zak Unavailable [phone] Zak Unavailable [phone] Zak Unavailable [phone] Zak Unavailable [phone] Zak Unavailable [phone] Zak Unavailable [phone] Zak Unavailable [phone] Zak Unavailable [phone] Zak Unavailable [phone] Zak Unavailable [phone] Zak Unavailable [phone] Re-disclosure Warning The records that you are about to access may contain information from federally- assisted alcohol or drug abuse programs. If such information is present, then the following federally mandated warning applies: This information has been disclosed to you from records protected by federal confidentiality rules (42 CFR part 2). The federal rules prohibit you from making any further disclosure of this information unless further disclosure is expressly permitted by the written consent of the person to whom it pertains or as otherwise permitted by 42 CFR part 2. A general authorization for the release of medical or other information is NOT sufficient for this purpose. The Federal rules restrict any use of the information to criminally investigate or prosecute any alcohol or drug abuse patient.The records that you are about to access may contain highly sensitive health information, the redisclosure of which is protected by Article 27-F of the [place] State Public Health law. If you continue you may haveaccess to information: Regarding HIV / AIDS; Provided by facilities licensed or operated by the [facility] Office of Mental Health; or Provided by the [facility] Office for People With Developmental Disabilities. If such information is present, then the following [facility] mandated warning applies: This information has been disclosed to you from confidential records which are protected by state law. State law prohibits you from making any further disclosure of this information without the specific written consent of the person to whom it pertains, or as otherwise permitted by law. Any unauthorized further disclosure in violation of state law may result in a fine or retirement sentence or both. A general authorization for the release of medical or other information is NOT sufficient authorization for further disclosure. Encounters Encounter Providers Location Date Indications Data Source(s ) Attender: Ammir 11/09/2019 [facility] ([place] [facility] Zak 12:00:00 AM EDT Zak Ph ysician) [facility] 11/09/2019 12:00:00 AM E DT [facility] ([facility] Crespo Physician) Office Attender: Ammijolanta MercadoZak 11/09/2019 12:00:00 AM E DT [facility] (Saraimijolanta Crespo Physician) Office Attender: Ammijolanta Zak 11/09/2019 12:00:00 AM E DT [facility] (Saraimijolanta Crespo Physician) Office Outpatient 11/19/2018 01:39:29 PM EDT I ([facility]) Patient admitted. Medications Medication Brand Start Product Dose Route Administrative Pharmacy [facility] Indications Reaction Description Data Name Date Form Instructions Instructions Source(s) Alprazolam ALPRAZ 11/08/ TABLET 90 complet ALPRA ZOLAM [facility] 0.5 MG Oral OLAM:3 2019 ed (Ammir Tablet 43378 12:00: Zak ALPRAZOLAM: 00 AM Physici an) [id number] EDT Sucralfate SUCRAL 11/08/ TABLET 90 complet SUCRA LFATE [facility] 1000 MG FATE:3 2019 ed (Ammir Oral Tablet 96544 12:00: Rabad i SUCRALFATE: 00 AM Physici an) 469850 EDT valacyclovi VALTRE 10/10/ TABLET 21 complet VALT LUCAS [facility] r 500 MG X:1087 2019 ed (Ammir Oral Tablet 80 12:00: Zak [Valtrex] 00 AM Physician ) VALTREX:108 EDT 780 Levothyroxi LEVOTH 10/10/ TABLET 90 complet LEVO THYROXIN [facility] ne Sodium YROXIN 2019 ed E (Ammir 0.075 MG E:9662 12:00: Zak Oral Tablet 22 00 AM Physici an) LEVOTHYROXI EDT NE:851525 Ofloxacin 3 OFLOXA 10/10/ SOLUTION 1 complet OF LOXACIN [facility] MG/ML MARCELA 2019 ed OPHTHALMIC (Ammir Ophthalmic OPHTHA 12:00: Rabad i Solution LMIC:3 00 AM Physicia n) OFLOXACIN 81632 EDT OPHTHALMIC: 065946 valacyclovi VALTRE 10/08/ TABLET 10 complet VALT LUCAS [facility] r 1000 MG X:3135 2019 ed (Ammir Oral Tablet 64 12:00: Zak VALTREX:313 00 AM Physici an) 564 EDT duloxetine CYMBAL 07/15/ DELAYED 30 complet CYMB MARSHALL [facility] 30 MG TA:596 2019 RELEASE ed (Ammir Delayed 932 12:00: CAPSULE Zak Release 00 AM Physician) Oral EDT Capsule [Cymbalta] CYMBALTA:59 6932 venlafaxine EFFEXO 07/04/ TABLET 60 complet EFFE XOR [facility] 75 MG Oral R:2087 2019 ed (Ammir Tablet 53 12:00: Zak [Effexor] 00 AM Physician ) EFFEXOR:208 EDT 853 28 ACTUAT SPIRIV 06/17/ AEROSOL 1 complet SPIRI VA [facility] tiotropium A 2019 ed RESPIMAT 28 (A mmir 0.0025 RESPIM 12:00: ACT Zak MG/ACTUAT AT 28 00 AM Physicia n) Metered ACT:15 EDT Dose 32049 Inhaler [Spiriva] SPIRIVA RESPIMAT 28 ACT:2946649 Dextrometho PROMET 06/06/ SYRUP 1 complet PROME THAZINE [facility] rphan 3 HAZINE 2019 ed DM (Ammir MG/ML / DM:991 12:00: Zak Promethazin 528 00 AM Physici an) e EDT Hydrochlori de 1.25 MG/ML Oral Solution PROMETHAZIN E DM:326181 cetirizine ZYRTEC 06/06/ TABLET 30 complet ZYRTE C [facility] hydrochlori :35347 2019 ed (Ammir de 10 MG 26 12:00: Zak Oral Tablet 00 AM Physici an) [Zyrtec] EDT ZYRTEC:1020 026 24 HR VENLAF 03/08/ CAPSULE, 180 complet VENLAFAX INE [facility] venlafaxine AXINE: 2019 EXTENDED ed (A mmir 75 MG 985214 12:00: RELEASE Zak Extended 00 AM Physician) Release EST Oral Capsule VENLAFAXINE :700061 Cholecalcif VITAMI 11/02/ TABLET 90 complet KATEY MIN D3 [facility] humberto 1000 N 2019 ed (Ammir UNT Oral D3:199 12:00: Zak Tablet 362 00 AM Physician) VITAMIN EDT D3:083264 ezetimibe VYTORI 11/02/ TABLET 30 complet VYTORI N [facility] 10 MG / N:4763 2019 ed (Ammir Simvastatin 49 12:00: Zak 20 MG Oral 00 AM Physicia n) Tablet EDT VYTORIN:476 349 Atenolol 50 ATENOL 11/02/ TABLET 90 complet ATEN OLOL [facility] MG Oral OL:197 2019 ed (Ammir Tablet 381 12:00: Zak ATENOLOL:19 00 AM Physici an) 7381 EDT Omeprazole OMEPRA 11/02/ DELAYED 180 complet OMEP RAZOLE [facility] 40 MG ZOLE:2 2019 RELEASE ed (Ammir Delayed 04596 12:00: CAPSULE Zak Release 00 AM Physician) Oral EDT Capsule OMEPRAZOLE: [id number] Losartan LOSART 11/02/ TABLET 90 complet LOSARTA N [facility] Potassium AN 2019 ed POTASSIUM (Ammi r 50 MG Oral POTASS 12:00: Rabad i Tablet IUM:97 00 AM Physician) LOSARTAN 9492 EDT POTASSIUM:9 35420 tramadol TRAMAD 11/02/ TABLET 21 complet TRAMADO L [facility] hydrochlori OL:835 2018 ed (Ammir de 50 MG 603 12:00: Zak Oral Tablet 00 AM Physici an) TRAMADOL:83 EDT 5603 Insurance Providers Payer name Policy type Policy ID Covered Covered libertarian's Policy P caron / Coverage libertarian ID relationship to [place] [employer] ormation type [place] MEDICAID [id number] SP [id number] MEDICARE [id number] SP [id number] 52 2 MEDICAID [id number] 18 [id number] MEDICARE PT [id number] 18 [id number] O/P 6 Problems, Conditions, and Diagnoses Code Display Name Description Problem Type Effective Data Sour ce(s) Dates H00.015 Hordeolum externum HORDEOLUM EXTERNUM Problem 0 [facility] (Ammir left lower eyelid LEFT LOWER EYELID 12:00:00 AM Zak EDT Physician) F32.9 Major depressive MAJOR DEPRESSIVE Problem 07/12/2019 [facility] (Ammir disorder, single DISORDER, SINGLE 12:00:00 AM R blu episode, EPISODE, EDT Physician) unspecified UNSPECIFIED Z71.89 Other specified OTHER SPECIFIED Problem 06/18/2019 [facility] EN (Ammir counseling COUNSELING 12:00:00 AM Zak EDT Physician) R53.82 Chronic fatigue, CHRONIC FATIGUE, Problem 03/08/2019 ME D[facility] (Ammir unspecified UNSPECIFIED 12:00:00 AM Zak EST Physician) R09.81 Nasal congestion NASAL CONGESTION Problem 03/08/2019 ME [facility] (Ammir 12:00:00 AM Zak EST Physician) R07.0 Pain in throat PAIN IN THROAT Problem 03/08/2019 [facility] (Ammir 12:00:00 AM Zak EST Physician) J12.2 Parainfluenza virus PARAINFLUENZA Problem 02/12/2019 [facility] (Ammir pneumonia VIRUS PNEUMONIA 12:00:00 AM Zak EST Physician) M25.511 Pain in right PAIN IN RIGHT Problem 01/07/2019 [facility] ( Ammir shoulder SHOULDER 12:00:00 AM Zak EDT Physician) L57.0 Actinic keratosis ACTINIC KERATOSIS Problem 11/02/2018 [facility] (Ammir 12:00:00 AM Zak EDT Physician) Surgeries/Procedures Procedure Description Date Indications Data Source(s) Medication Reconciliation 11/02/2018 [facility] (Ammir Zak (procedure) 12:00:00 AM EDT Physician) Results ID Date Data Source [id number] 10/11/2019 12:00:00 AM EDT [facility] (Ammir Zak Physician) Name Value Range Interpretation Code Description Data Crystal rce(s) Supporting Document(s ) COV2T Negative Normal (applies to [facility] (Amm ir non-numeric results) Zak Physician) ID Date Data Source [id number] 10/11/2019 12:00:00 AM EDT [facility] (Ammir Zak Physician) Name Value Range Interpretation Description Data Sup porting Code Source(s) Document(s ) TSH,3RD 8.66 Above high normal [facility] GENERATION uIU/mL (Ammir Zak Physician) T4 FREE, 0.80 Below low normal [facility] THYROXINE ng/dL (Ammir Zak Physician) ID Date Data Source [id number] 10/11/2019 12:00:00 AM EDT [facility] (Ammir Zak Physician) Name Value Range Interpretation Description Data Sup porting Code Source(s) Document(s ) Ferritin 71 ng/mL Normal (applies to [facility] (Amm ir [Interpretat non-numeric Zak ion] in results) Physician) Blood ID Date Data Source [id number] 10/11/2019 12:00:00 AM EDT [facility] (Ammir Zak Physician) Name Value Range Interpretation Description Data Sup porting Code Source(s) Document(s ) Transferrin 219 mg/dL Normal (applies [facility] [Mass/time] in to non-numeric (Ammir 24 hour Urine results) Zak Physician) TIBC 307.1 Normal (applies [facility] ug/dL to non-numeric (Ammir results) Zak Physician) UIBC 254.1 Normal (applies [facility] ug/dL to non-numeric (Ammir results) Zak Physician) %SATURATION 17.3 % Normal (applies [facility] to non-numeric (Ammir results) Zak Physician) ID Date Data Source [id number] 10/11/2019 12:00:00 AM EDT [facility] (Ammir Zak Physician) Name Value Range Interpretation Code Description Data Crystal rce(s) Supporting Document(s ) Herpes-2 Positive Abnormal (applies [facility] (Ammi r IGG to non-numeric Zak results) Physician) ID Date Data Source [id number] 10/11/2019 12:00:00 AM EDT [facility] (Ammir Zak Physician) Name Value Range Interpretation Code Description Data Crystal rce(s) Supporting Document(s ) Herpes-1 Positive Abnormal (applies [facility] (Ammi r IGG to non-numeric Zak results) Physician) ID Date Data Source [id number] 10/11/2019 12:00:00 AM EDT [facility] (Ammir Zak Physician) Name Value Range Interpretation Code Description Data Crystal rce(s) Supporting Document(s ) T3 TOTAL 72 ng/dL Normal (applies to [facility] (Amm ir non-numeric Zak results) Physician) ID Date Data Source [id number] 10/11/2019 12:00:00 AM EDT [facility] (Ammir Zak Physician) Name Value Range Interpretation Description Data Sup porting Code Source(s) Document(s ) T3 FREE 2.20 Below low normal [facility] TRIIODOTHYRONINE pg/mL (Ammir Zak Physician) ID Date Data Source [id number] 10/11/2019 12:00:00 AM EDT [facility] (Ammir Zak Physician) Name Value Range Interpretation Description Data Sup porting Code Source(s) Document(s ) Cholesterol 164 Normal (applies [facility] [Moles/volume] mg/dL to non-numeric (Ammir in Pericardial results) Zak fluid Physician) LDL CALCULATION 63.4 Normal (applies [facility] mg/dL to non-numeric (Ammir results) Zak Physician) CHOL/HDL RATIO 2.22 Normal (applies [facility] ratio to non-numeric (Ammir results) Zak Physician) HDL CHOLESTEROL 74 mg/dL Normal (applies [facility] to non-numeric (Ammir results) Zak Physician) VLDL CALCULATION 26.6 Normal (applies [facility] mg/dl to non-numeric (Ammir results) Zak Physician) TRIGLYCERIDES 133 Normal (applies [facility] mg/dL to non-numeric (Ammir results) Zak Physician) ID Date Data Source [id number] 10/11/2019 12:00:00 AM EDT [facility] (Ammir Zak Physician) Name Value Range Interpretation Code Description Data Crystal rce(s) Supporting Document(s ) IRON, 53 ug/dL Normal (applies to [facility] (Amm ir TOTAL non-numeric Zak results) Physician) ID Date Data Source [id number] 10/11/2019 12:00:00 AM EDT [facility] (Ammir Zak Physician) Name Value Range Interpretation Description Data Sup porting Code Source(s) Document(s ) WBC 7.2 Normal (applies [facility] 10(3)/uL to non-numeric (Ammir results) Zak Physician) RBC 3.1 Below low normal [facility] 10(6)/uL (Ammir Zak Physician) Hemoglobin 8.6 g/dL Below low normal [facility] [Mass/volume] (Ammir in Mixed venous Zak blood by Physician) Oximetry Hematocrit 26.9 % Below low normal [facility] [Pure volume (Ammir fraction] of Zak Blood by Physician) Automated count MCV 85.9 fL Normal (applies [facility] to non-numeric (Ammir results) Zak Physician) MCH 28 pg Normal (applies [facility] to non-numeric (Ammir results) Zak Physician) MCHC 32 g/dL Normal (applies [facility] to non-numeric (Ammir results) Zak Physician) RDWSD 57.1 fL Above high normal [facility] (Ammir Zak Physician) RDWCV 18.4 % Above high normal [facility] (Ammir Zak Physician) Platelet Count 395 Normal (applies [facility] 10(3)/uL to non-numeric (Ammir results) Zak Physician) MPV 10.4 fL Normal (applies [facility] to non-numeric (Ammir results) Zak Physician) Neutrophil Abs 5.70 Normal (applies [facility] 10(3)/uL to non-numeric (Ammir results) Zak Physician) Lymphocyte Abs 0.87 Normal (applies [facility] 10(3)/uL to non-numeric (Ammir results) Zak Physician) Monocyte Abs 0.42 Normal (applies [facility] 10(3)/uL to non-numeric (Ammir results) Zak Physician) Eosinophil Abs 0.11 Normal (applies [facility] 10(3)/uL to non-numeric (Ammir results) Zak Physician) Basophil Abs 0.05 Normal (applies [facility] 10(3)/uL to non-numeric (Ammir results) Zak Physician) Immature 0.02 Normal (applies [facility] Granulocyte Abs 10(3)/uL to non-numeric (Ammir results) Zak Physician) Neutrophil % 79.50 % Above high normal [facility] (Ammir Zak Physician) Lymphocyte % 12 % Below low normal [facility] (Ammir Zak Physician) Monocyte % 5.9 % Normal (applies [facility] to non-numeric (Ammir results) Zak Physician) Eosinophil % 1.5 % Normal (applies [facility] to non-numeric (Ammir results) Zak Physician) Basophil % 0.7 % Normal (applies [facility] to non-numeric (Ammir results) Zak Physician) Immature 0.30 % Normal (applies [facility] Granulocyte % to non-numeric (Ammir results) Zak Physician) NRBC % 0.0 % Normal (applies [facility] to non-numeric (Ammir results) Zak Physician) NRBC Abs 0.00 Normal (applies [facility] 10(3)/uL to non-numeric (Ammir results) Zak Physician) ID Date Data Source [id number] 10/11/2019 12:00:00 AM EDT [facility] (Ammir Zak Physician) Name Value Range Interpretation Description Data Sup porting Code Source(s) Document(s ) GLUCOSE 104 Normal (applies [facility] NONFASTING,SERUM mg/dL to non-numeric (Ammir results) Zak Physician) SODIUM, SERUM 139 Normal (applies [facility] mEq/L to non-numeric (Ammir results) Zak Physician) POTASSIUM, SERUM 4.4 Normal (applies [facility] mEq/L to non-numeric (Ammir results) Zak Physician) CHLORIDE, SERUM 105 Normal (applies [facility] mEq/L to non-numeric (Ammir results) Zak Physician) Carbon dioxide 27 mEq/L Normal (applies [facility] [VFr/PPres] in to non-numeric (Ammir Gas delivery results) Zak system Physician) Anion gap in 11.4 Normal (applies [facility] Body fluid mEq/L to non-numeric (Ammir results) Zak Physician) BLOOD UREA 18 mg/dL Normal (applies [facility] NITROGEN to non-numeric (Ammir results) Zak Physician) CREATININE, 0.80 Normal (applies [facility] SERUM mg/dL to non-numeric (Ammir results) Zak Physician) CALCIUM, SERUM 9.0 Normal (applies [facility] mg/dL to non-numeric (Ammir results) Zak Physician) TOTAL PROTEIN 6.8 g/dL Normal (applies [facility] to non-numeric (Ammir results) Zak Physician) Microalbumin 4.1 g/dL Normal (applies [facility] [Mass/time] in to non-numeric (Ammir Urine collected results) Zak for unspecified Physician) duration Globulin 2.7 gldl Normal (applies [facility] [Mass/time] in to non-numeric (Ammir 24 hour Urine results) Zak Physician) A/G RATIO 1.52 Normal (applies [facility] g/dl to non-numeric (Ammir results) Zak Physician) BILIRUBIN, TOTAL 0.2 Below low normal [facility] mg/dL (Ammir Zak Physician) ALKALINE 99 U/L Normal (applies [facility] PHOSPHATASE, ALP to non-numeric (Ammir results) Zak Physician) ALT (SGPT) 13 U/L Normal (applies [facility] to non-numeric (Ammir results) Azk Physician) AST 21 U/L Normal (applies [facility] to non-numeric (Ammir results) Zak Physician) EGFR NON AFR 73 Normal (applies [facility] [place] mL/min/1 to non-numeric (Ammir .73m2 results) Zak Physician) EGFR AFR 88 Normal (applies [facility] [place] mL/min/1 to non-numeric (Ammir .73m2 results) Zak Physician) ID Date Data Source [id number] 09/17/2019 09:45:00 AM EDT [facility] Name Value Range Interpretation Description Data Sup porting Code Source(s) Document(s ) SARS [facility] CORONAVIRUS 2 RNA This lab was ordered by [facility] and reported by [facility]. ID Date Data Source [id number] 09/09/2019 02:25:00 PM EDT [facility] Name Value Range Interpretation Description Data Sup porting Code Source(s) Document(s ) SARS [facility] CORONAVIRUS 2 RNA This lab was ordered by [facility] and reported by [facility]. ID Date Data Source [id number] 03/08/2019 12:00:00 AM EST [facility] (Ammir Zak Physician) Name Value Range Interpretation Description Data Sup porting Code Source(s) Document(s ) STREPTOCOCCUS NEGATIVE Normal (applies [facility] GROUP A to non-numeric (Ammir results) Zak Physician) STREPTOCOCCUS NEGATIVE Normal (applies [facility] GROUP C/G to non-numeric (Ammir results) Zak Physician) ID Date Data Source [id number] 03/08/2019 12:00:00 AM EST [facility] (Ammir Zak Physician) Name Value Range Interpretation Description Data Sup porting Code Source(s) Document(s ) Adenovirus Not Normal (applies [facility] [Presence] in Detected to non-numeric (Ammir Unspecified results) Zak specimen by Physician) Organism specific culture CORONAVIRUS 229E Not Normal (applies [facility] Detected to non-numeric (Ammir results) Zak Physician) CORONAVIRUS HKU1 Not Normal (applies [facility] Detected to non-numeric (Ammir results) Zak Physician) CORONAVIRUS NL63 Not Normal (applies [facility] Detected to non-numeric (Ammir results) Zak Physician) CORONAVIRUS OC43 Not Normal (applies [facility] Detected to non-numeric (Ammir results) Zak Physician) HUMAN Not Normal (applies [facility] METAPNEUMOVIRUS Detected to non-numeric (Ammir results) Zak Physician) HUMAN Not Normal (applies [facility] RHINOVIRUS/ENTERO Detected to non-numeric (Ammir VIRUS results) Zak Physician) INFLUENZA A/H1 Not Normal (applies [facility] Detected to non-numeric (Ammir results) Zak Physician) INFLUENZA A/H3 Not Normal (applies [facility] Detected to non-numeric (Ammir results) Zak Physician) INFLUENZA Not Normal (applies [facility] A/H1-2009 Detected to non-numeric (Ammir results) Zak Physician) INFLUENZA B Not Normal (applies [facility] Detected to non-numeric (Ammir results) Zak Physician) Parainfluenza Not Normal (applies [facility] virus 1 Detected to non-numeric (Ammir [Presence] in results) Zak Unspecified Physician) specimen by Organism specific culture Parainfluenza Not Normal (applies [facility] virus 2 Detected to non-numeric (Ammir [Presence] in results) Zak Unspecified Physician) specimen by Organism specific culture Parainfluenza Not Normal (applies [facility] virus 3 Detected to non-numeric (Ammir [Presence] in results) Zak Unspecified Physician) specimen by Organism specific culture PARAINFLUENZA Not Normal (applies [facility] VIRUS 4 Detected to non-numeric (Ammir results) Zak Physician) RESP.SYNCYTIAL Not Normal (applies [facility] VIRUS Detected to non-numeric (Ammir results) Zak Physician) Bordetella Not Normal (applies [facility] pertussis Detected to non-numeric (Ammir [Presence] in results) Zak Unspecified Physician) specimen by Organism specific culture CHLAMYDOPHILIA Not Normal (applies [facility] PNEUMONIAE Detected to non-numeric (Ammir results) Zak Physician) Mycoplasma Not Normal (applies [facility] pneumoniae Detected to non-numeric (Ammir [Presence] in results) Zak Unspecified Physician) specimen by Organism specific culture Bordetella Not Normal (applies [facility] parapertussis Detected to non-numeric (Ammir [Presence] in results) Zak Unspecified Physician) specimen by Organism specific culture ID Date Data Source [id number] 02/08/2019 12:00:00 AM EST [facility] (Ammir Zak Physician) Name Value Range Interpretation Code Description Data Crystal rce(s) Supporting Document(s ) REFLEX FOR Abnormal (applies [facility] (Amm ir P53 - 1 UNIT to non-numeric Zak results) Physician) ID Date Data Source [id number] 02/08/2019 12:00:00 AM EST [facility] (Ammir Zak Physician) Name Value Range Interpretation Description Data Sup porting Code Source(s) Document(s ) ORGANISM Abnormal (applies [facility] to non-numeric (Ammir results) Zak Physician) Comment Abnormal (applies [facility] [Interpretation] to non-numeric (Ammir Left eye Narrative results) Zak Ophthalmometer Physician) ID Date Data Source [id number] 02/08/2019 12:00:00 AM EST [facility] (Ammir Zak Physician) Name Value Range Interpretation Description Data Sup porting Code Source(s) Document(s ) Adenovirus Not Normal (applies [facility] [Presence] in Detected to non-numeric (Ammir Unspecified results) Zak specimen by Physician) Organism specific culture CORONAVIRUS 229E Not Normal (applies [facility] Detected to non-numeric (Ammir results) Zak Physician) CORONAVIRUS HKU1 Not Normal (applies [facility] Detected to non-numeric (Ammir results) Zak Physician) CORONAVIRUS NL63 Not Normal (applies [facility] Detected to non-numeric (Ammir results) Zak Physician) CORONAVIRUS OC43 Not Normal (applies [facility] Detected to non-numeric (Ammir results) Zak Physician) HUMAN Not Normal (applies [facility] METAPNEUMOVIRUS Detected to non-numeric (Ammir results) Zak Physician) HUMAN Not Normal (applies [facility] RHINOVIRUS/ENTERO Detected to non-numeric (Ammir VIRUS results) Zak Physician) INFLUENZA A/H1 Not Normal (applies [facility] Detected to non-numeric (Ammir results) Zak Physician) INFLUENZA A/H3 Not Normal (applies [facility] Detected to non-numeric (Ammir results) Zak Physician) INFLUENZA Not Normal (applies [facility] A/H1-2009 Detected to non-numeric (Ammir results) Zak Physician) INFLUENZA B Not Normal (applies [facility] Detected to non-numeric (Ammir results) Zak Physician) Parainfluenza Detected Abnormal [facility] virus 1 (applies to (Ammir [Presence] in non-numeric Zak Unspecified results) Physician) specimen by Organism specific culture Parainfluenza Not Normal (applies [facility] virus 2 Detected to non-numeric (Ammir [Presence] in results) Zak Unspecified Physician) specimen by Organism specific culture Parainfluenza Not Normal (applies [facility] virus 3 Detected to non-numeric (Ammir [Presence] in results) Zak Unspecified Physician) specimen by Organism specific culture PARAINFLUENZA Not Normal (applies [facility] VIRUS 4 Detected to non-numeric (Ammir results) Zak Physician) RESP.SYNCYTIAL Not Normal (applies [facility] VIRUS Detected to non-numeric (Ammir results) Zak Physician) Bordetella Not Normal (applies [facility] pertussis Detected to non-numeric (Ammir [Presence] in results) Zak Unspecified Physician) specimen by Organism specific culture Chlamydophila Not Normal (applies [facility] pneumoniae Detected to non-numeric (Ammir [Presence] in results) Zak Unspecified Physician) specimen by Organism specific culture Mycoplasma Not Normal (applies [facility] pneumoniae Detected to non-numeric (Ammir [Presence] in results) Zak Unspecified Physician) specimen by Organism specific culture Bordetella Not Normal (applies [facility] parapertussis Detected to non-numeric (Ammir [Presence] in results) Zak Unspecified Physician) specimen by Organism specific culture ID Date Data Source [id number] 02/08/2019 12:00:00 AM EST [facility] (Ammir Zak Physician) Name Value Range Interpretation Description Data Sup porting Code Source(s) Document(s ) T4 FREE, 0.86 Below low normal [facility] THYROXINE ng/dL (Ammir Zak Physician) TSH,3RD 4.63 Normal (applies to [facility] GENERATION uIU/mL non-numeric (Ammir results) Zak Physician) ID Date Data Source [id number] 02/08/2019 12:00:00 AM EST [facility] (Ammir Zak Physician) Name Value Range Interpretation Description Data Sup porting Code Source(s) Document(s ) FOLATE SERUM 7.4 ng/mL Normal (applies to [facility] ( Ammir non-numeric Zak results) Physician) VITAMIN B12 422 pg/mL Normal (applies to [facility] (A mmir non-numeric Zak results) Physician) ID Date Data Source [id number] 02/08/2019 12:00:00 AM EST [facility] (Ammir Zak Physician) Name Value Range Interpretation Description Data Sup porting Code Source(s) Document(s ) VITAMIN D 44.37 Normal (applies to [facility] (Amm ir 25-HYDROXY ng/mL non-numeric Zak results) Physician) ID Date Data Source [id number] 02/08/2019 12:00:00 AM EST [facility] (Ammir Zak Physician) Name Value Range Interpretation Description Data Sup porting Code Source(s) Document(s ) Cholesterol 170 Normal (applies [facility] [Moles/volume] mg/dL to non-numeric (Ammir in Pericardial results) Zak fluid Physician) LDL CALCULATION 68.2 Normal (applies [facility] mg/dL to non-numeric (Ammir results) Zak Physician) CHOL/HDL RATIO 2.43 Normal (applies [facility] ratio to non-numeric (Ammir results) Zak Physician) HDL CHOLESTEROL 70 mg/dL Normal (applies [facility] to non-numeric (Ammir results) Zak Physician) VLDL CALCULATION 31.8 Normal (applies [facility] mg/dl to non-numeric (Ammir results) Zak Physician) TRIGLYCERIDES 159 Above high normal [facility] mg/dL (Ammir Zak Physician) ID Date Data Source [id number] 02/08/2019 12:00:00 AM EST [facility] (Ammir Zak Physician) Name Value Range Interpretation Description Data Sup porting Code Source(s) Document(s ) WBC 13.4 Above high normal [facility] 10(3)/uL (Ammir Zak Physician) RBC 3.9 Normal (applies [facility] 10(6)/uL to non-numeric (Ammir results) Zak Physician) Hemoglobin 11.3 g/dL Normal (applies [facility] [Mass/volume] to non-numeric (Ammir in Mixed venous results) Zak blood by Physician) Oximetry Hematocrit 34.2 % Normal (applies [facility] [Pure volume to non-numeric (Ammir fraction] of results) Zak Blood by Physician) Automated count MCV 88.8 fL Normal (applies [facility] to non-numeric (Ammir results) Zak Physician) MCH 29 pg Normal (applies [facility] to non-numeric (Ammir results) Zak Physician) MCHC 33 g/dL Normal (applies [facility] to non-numeric (Ammir results) Zak Physician) RDWSD 45.8 fL Normal (applies [facility] to non-numeric (Ammir results) Zak Physician) RDWCV 14.4 % Normal (applies [facility] to non-numeric (Ammir results) Zak Physician) Platelet Count 473 Above high normal [facility] 10(3)/uL (Ammir Zak Physician) MPV 8.8 fL Below low normal [facility] (Ammir Zak Physician) Neutrophil Abs 11.20 Above high normal [facility] 10(3)/uL (Ammir Zak Physician) Lymphocyte Abs 1.24 Normal (applies [facility] 10(3)/uL to non-numeric (Ammir results) Zak Physician) Monocyte Abs 0.66 Normal (applies [facility] 10(3)/uL to non-numeric (Ammir results) Zak Physician) Eosinophil Abs 0.10 Normal (applies [facility] 10(3)/uL to non-numeric (Ammir results) Zak Physician) Basophil Abs 0.05 Normal (applies [facility] 10(3)/uL to non-numeric (Ammir results) Zak Physician) Immature 0.12 Above high normal [facility] Granulocyte Abs 10(3)/uL (Ammir Zak Physician) Neutrophil % 83.80 % Above high normal [facility] (Ammir Zak Physician) Lymphocyte % 9 % Below low normal [facility] (Ammir Zak Physician) Monocyte % 4.9 % Normal (applies [facility] to non-numeric (Ammir results) Zak Physician) Eosinophil % 0.7 % Normal (applies [facility] to non-numeric (Ammir results) Zak Physician) Basophil % 0.4 % Normal (applies [facility] to non-numeric (Ammir results) Zak Physician) Immature 0.90 % Normal (applies [facility] Granulocyte % to non-numeric (Ammir results) Zak Physician) NRBC % 0.0 % Normal (applies [facility] to non-numeric (Ammir results) Zak Physician) NRBC Abs 0.00 Normal (applies [facility] 10(3)/uL to non-numeric (Ammir results) Zak Physician) ID Date Data Source [id number] 02/08/2019 12:00:00 AM EST [facility] (Ammir Zak Physician) Name Value Range Interpretation Description Data Sup porting Code Source(s) Document(s ) GLUCOSE 80 mg/dL Normal (applies [facility] NONFASTING,SERUM to non-numeric (Ammir results) Zak Physician) SODIUM, SERUM 137 Normal (applies [facility] mEq/L to non-numeric (Ammir results) Zak Physician) POTASSIUM, SERUM 4.3 Normal (applies [facility] mEq/L to non-numeric (Ammir results) Zak Physician) CHLORIDE, SERUM 97 mEq/L Below low normal [facility] (Ammir Zak Physician) Carbon dioxide 31 mEq/L Normal (applies [facility] [VFr/PPres] in to non-numeric (Ammir Gas delivery results) Zak system Physician) Anion gap in 13.3 Normal (applies [facility] Body fluid mEq/L to non-numeric (Ammir results) Zak Physician) BLOOD UREA 13 mg/dL Normal (applies [facility] NITROGEN to non-numeric (Ammir results) Zak Physician) CREATININE, 0.80 Normal (applies [facility] SERUM mg/dL to non-numeric (Ammir results) Zak Physician) CALCIUM, SERUM 9.9 Normal (applies [facility] mg/dL to non-numeric (Ammir results) Zak Physician) TOTAL PROTEIN 6.4 g/dL Normal (applies [facility] to non-numeric (Ammir results) Zak Physician) Microalbumin 4.0 g/dL Normal (applies [facility] [Mass/time] in to non-numeric (Ammir Urine collected results) Zak for unspecified Physician) duration Globulin 2.4 gldl Normal (applies [facility] [Mass/time] in to non-numeric (Ammir 24 hour Urine results) Zak Physician) A/G RATIO 1.67 Normal (applies [facility] g/dl to non-numeric (Ammir results) Zak Physician) BILIRUBIN, TOTAL 0.4 Normal (applies [facility] mg/dL to non-numeric (Ammir results) Zak Physician) ALKALINE 76 U/L Normal (applies [facility] PHOSPHATASE, ALP to non-numeric (Ammir results) Zak Physician) ALT (SGPT) 17 U/L Normal (applies [facility] to non-numeric (Ammir results) Zak Physician) AST 24 U/L Normal (applies [facility] to non-numeric (Ammir results) Zak Physician) EGFR NON AFR 73 Normal (applies [facility] [place] mL/min/1 to non-numeric (Ammir .73m2 results) Zak Physician) EGFR AFR 88 Normal (applies [facility] [place] mL/min/1 to non-numeric (Ammir .73m2 results) Zak Physician) Procedure Social History Code Duration Value Status Description Data Source(s ) Smoking 11/09/2019 - Alcohol: completed - Alcohol: Stopped [facility] (Ammir 12:00:00 AM EDT Stopped drinking drinking alcoh ol Zak alcohol Physician) Smoking 11/09/2019 Unknown if ever completed Unknown if ever [facility] EN (Ammir 12:00:00 AM EDT smoked smoked Zak Physician) Vital Signs ID Date Data Source UNK Name Value Range Interpretation Code Description Data Source(s) Heart rate 87 /min 87 /min [facility] (Ammir Zak Physician) Inhaled oxygen 98 % 98 % [facility] (Am yenni concentration Zak Physician) Body mass index 22.2 kg/m2 22.2 kg/m2 [facility] (A mmir (BMI) [Ratio] Zak Physician) Diastolic blood 64 mm[Hg] 64 mm[Hg] [facility] (A mmir pressure Zak Physician) Systolic blood 112 mm[Hg] 112 mm[Hg] [facility] (Am yenni pressure Zak Physician) Body weight 110 lb 110 lb [facility] (Ammir Zak Physician) Body height 59 in 59 in [facility] (Ammir Zak Physician) Heart rate 66 /min 66 /min [facility] (Ammir Zak Physician) Inhaled oxygen 97 % 97 % [facility] (Am yenni concentration Zak Physician) Body mass index 30.5 kg/m2 30.5 kg/m2 [facility] (A mmir (BMI) [Ratio] Zak Physician) Diastolic blood 80 mm[Hg] 80 mm[Hg] [facility] (A mmir pressure Zak Physician) Systolic blood 130 mm[Hg] 130 mm[Hg] [facility] (Am yenni pressure Zak Physician) Body weight 189 lb 189 lb [facility] (Ammir Zak Physician) Body height 66 in 66 in [facility] (Ammir Zak Physician) Heart rate 89 /min 89 /min [facility] (Ammir Zak Physician) Body temperature 97.9 F 97.9 F [facility] ( Ammir Zak Physician) Inhaled oxygen 95 % 95 % [facility] (Am yenni concentration Zak Physician) Diastolic blood 70 mm[Hg] 70 mm[Hg] [facility] (A mmir pressure Zak Physician) Systolic blood 120 mm[Hg] 120 mm[Hg] [facility] (Am yenni pressure Zak Physician) Body weight 115 lb 115 lb [facility] (Ammir Zak Physician) Heart rate 98 /min 98 /min [facility] (Ammir Zak Physician) Body temperature 97.7 F 97.7 F [facility] ( Ammir Zak Physician) Inhaled oxygen 96 % 96 % [facility] (Am yenni concentration Zak Physician) Diastolic blood 68 mm[Hg] 68 mm[Hg] [facility] (A mmir pressure Zak Physician) Systolic blood 130 mm[Hg] 130 mm[Hg] [facility] (Am yenni pressure Zak Physician) Body weight 114 lb 114 lb [facility] (Ammir Zak Physician) Heart rate 65 /min 65 /min [facility] (Ammir Zak Physician) Respiratory rate 16 /min 16 /min [facility] ( Ammir Zak Physician) Inhaled oxygen 98 % 98 % [facility] (Am yenni concentration Zak Physician) Body mass index 21 kg/m2 21 kg/m2 [facility] (A mmir (BMI) [Ratio] Zak Physician) Diastolic blood 70 mm[Hg] 70 mm[Hg] [facility] (A mmir pressure Zak Physician) Systolic blood 110 mm[Hg] 110 mm[Hg] [facility] (Am yenni pressure Zak Physician) Body weight 115 lb 115 lb [facility] (Ammir Zak Physician) Body height 62 in 62 in [facility] (Ammir Zak Physician) Heart rate 62 /min 62 /min [facility] (Ammir Azk Physician) Respiratory rate 16 /min 16 /min [facility] ( Ammir Zak Physician) Inhaled oxygen 98 % 98 % [facility] (Am yenni concentration Zak Physician) Body mass index 21 kg/m2 21 kg/m2 [facility] (A mmir (BMI) [Ratio] Zak Physician) Diastolic blood 60 mm[Hg] 60 mm[Hg] [facility] (A mmir pressure Zak Physician) Systolic blood 110 mm[Hg] 110 mm[Hg] [facility] (Am yenni pressure Zak Physician) Body weight 115 lb 115 lb [facility] (Ammir Zka Physician) Body height 62 in 62 in [facility] (Ammir Zak Physician) Heart rate 62 /min 62 /min [facility] (Ammir Zak Physician) Respiratory rate 16 /min 16 /min [facility] ( Ammir Zak Physician) Inhaled oxygen 98 % 98 % [facility] (Am yenni concentration Zak Physician) Body mass index 21 kg/m2 21 kg/m2 [facility] (A mmir (BMI) [Ratio] Zak Physician) Diastolic blood 68 mm[Hg] 68 mm[Hg] [facility] (A mmir pressure Zak Physician) Systolic blood 132 mm[Hg] 132 mm[Hg] [facility] (Am yenni pressure Zak Physician) Body weight 115 lb 115 lb [facility] (Ammir Zak Physician) Body height 62 in 62 in [facility] (Ammir Zak Physician) Heart rate 90 /min 90 /min [facility] (Ammir Zak Physician) Respiratory rate 16 /min 16 /min [facility] ( Ammir Zak Physician) Inhaled oxygen 96 % 96 % [facility] (Am yenni concentration Zak Physician) Diastolic blood 74 mm[Hg] 74 mm[Hg] [facility] (A mmir pressure Zak Physician) Systolic blood 126 mm[Hg] 126 mm[Hg] [facility] (Am yenni pressure Zak Physician) Body weight 115 lb 115 lb [facility] (Ammir Zak Physician)
[2019-12-30] MEDS ORDERED: IRON SUCROSE INJECTION 200 MG in SODIUM CHLORIDE 100 ML IVPB ONE (12:00)
[2019-12-30 12:22] LABS: HEMATOCRIT 33.2 % (32.4-45.2); MEAN PLT VOLUME 7.3 fl (7.5-11.1)
[2019-12-30 12:24] LABS: BASO % 0.6 % (0-2.0); HEMOGLOBIN 10.7 GM/dL (10.7-15.3); LYMPH % 12.8 % (8-40); MCH 27.3 pg (25.7-33.7); MCHC 32.2 g/dl (32.0-36.0); MEAN CELL VOLUME 84.8 fl (80-96); MONO % 6.5 % (3.8-10.2); NEUT % 79.1 % (42.8-82.8); PLATELET COUNT 444 K/MM3 (134-434); RBC 3.92 M/mm3 (3.60-5.2); RDW 17.6 % (11.6-15.6); WHITE BLOOD COUNT 6.9 K/mm3 (4.0-10.0)
[2019-12-30 16:51] VITALS: TEMP 98
[2019-12-30 16:53] VITALS: BP 109/63; PULSE 78
== END 2019-12-30 13:45 | disposition home or self-care (01) ==
LOC: JONCNONCHE 07:14
PROVIDERS: ATTEND Internal Medicine Hematology & Oncology
PROC: 3E033GC Introduction of Other Therapeutic Substance into Peripheral Vein, Percutaneous Approach (ICD-10-PCS; principal; 2019-12-30)
DX: D50.9 Iron deficiency anemia, unspecified (principal); Z88.0 Allergy status to penicillin
CPT/HCPCS: 36415; 85025; 96365; J1756

== ENCOUNTER 2020-10-04 21:51 | Inpatient (IN) | payer OTHER ==
[2020-10-04 22:25] VITALS: BMI 21.2
[2020-10-04] MEDS ORDERED: MAG HYDROX/AL HYDROX/SIMETH -MYLANTA- ORAL SUSPENSION PO ONE (22:33)
[2020-10-04] MEDS ORDERED: FAMOTIDINE 20 MG/50 ML IVPB 20 MG/50 ML MG IVPB ONE ×2 (22:33→22:57)
[2020-10-04] MEDS ORDERED: SODIUM CHLORIDE 1,000 ML IV STA (22:36)
[2020-10-04] MEDS ORDERED: MAG HYDROX/AL HYDROX/SIMETH 30 ML UNIT-DOSE CUP ONE (22:57)
[2020-10-04] MEDS ORDERED: ONDANSETRON 4 MG/2 ML VIAL IVPUSH ONE (23:01)
[2020-10-04] MEDS ORDERED: ACETAMINOPHEN INJECTION 100 ML IVPB ONE (23:09)
[2020-10-04 23:26] LABS: BASO % 0.2 % (0-2.0); EOS % 0.2 % (0-4.5); HEMATOCRIT 30.6 % (32.4-45.2); HEMOGLOBIN 10.1 GM/dL (10.7-15.3); MCHC 32.9 g/dl (32.0-36.0); MEAN CELL VOLUME 82.2 fl (80-96); MEAN PLT VOLUME 6.4 fl (7.5-11.1); MONO % 6.5 % (3.8-10.2); NEUT % 89.1 % (42.8-82.8); PLATELET COUNT 414 10^3/uL (134-434); RBC 3.72 M/mm3 (3.60-5.2); RDW 14.5 % (11.6-15.6)
[2020-10-04] MEDS ORDERED: ONDANSETRON 4 MG/2 ML VIAL ONE (23:29)
[2020-10-04] MEDS ORDERED: ACETAMINOPHEN 1000 MG/100 ML VIAL (NON FORMULARY) IVPB ONE (23:36)
[2020-10-04 23:40] LABS: CHLORIDE 100 mmol/L (98-107); SODIUM 135 mmol/L (136-145)
[2020-10-04 23:41] LABS: CALCIUM 9.1 mg/dL (8.5-10.1)
[2020-10-04 23:42] LABS: ALBUMIN 3.2 g/dl (3.4-5.0); ANION GAP 8 MMOL/L (8-16); BLOOD UREA NITROGEN 18.7 mg/dL (7-18); CO2 26 mmol/L (21-32); GLUCOSE,RANDOM 108 mg/dL (74-106); LIPASE 205 U/L (73-393)
[2020-10-04 23:44] LABS: SGOT/AST 650 U/L (15-37); SGPT/ALT 288 U/L (13-61)
[2020-10-04 23:46] LABS: CREATININE 1.1 mg/dL (0.55-1.3)
[2020-10-04 23:46] LABS: EPI CELLS >36 /uL (0-25.1); HYALINE CASTS 3 /uL (0-3.1); PH,URINE 5.5 (5.0-8.0); URINE APPEARANCE CLEAR; URINE BACTERIA 45 /uL (0-1359); URINE BILIRUBIN NEGATIVE (NEGATIVE); URINE COLOR YELLOW; URINE GLUCOSE (UA) NEGATIVE (NEGATIVE); URINE KETONE NEGATIVE (NEGATIVE); URINE LEUK ESTERASE 2+ (NEGATIVE); URINE NITRITE NEGATIVE (NEGATIVE); URINE PROTEIN TRACE (NEGATIVE); URINE RBC 10 /uL (0-23.9); URINE WBC 347 /uL (0-25.8)
[2020-10-04 23:47] LABS: ALK PHOS 272 U/L (45-117); BILIRUBIN,TOTAL 0.8 mg/dL (0.2-1); TOT PROT 7.3 g/dl (6.4-8.2)
[2020-10-05] MEDS ORDERED: ONDANSETRON 4 MG/2 ML VIAL ONE (03:12)
[2020-10-05] MEDS ORDERED: ONDANSETRON 4 MG/2 ML VIAL IVPUSH ONE (04:55)
[2020-10-05] MEDS: DEXTROSE 5%-0.45% SALINE 1,000 ML IV SCH (05:18)
[2020-10-05] MEDS ORDERED: MORPHINE SULFATE 2 MG/ML VIAL IVPUSH PRN (07:05)
[2020-10-05 09:07] LABS: BASO % 0.2 % (0-2.0); EOS % 0.2 % (0-4.5); HEMATOCRIT 30.9 % (32.4-45.2); HEMOGLOBIN 10.1 GM/dL (10.7-15.3); LYMPH % 3.4 % (8-40); MCH 27.3 pg (25.7-33.7); MCHC 32.8 g/dl (32.0-36.0); MEAN CELL VOLUME 83.3 fl (80-96); MEAN PLT VOLUME 7.3 fl (7.5-11.1); MONO % 5.6 % (3.8-10.2); NEUT % 90.6 % (42.8-82.8); PLATELET COUNT 399 10^3/uL (134-434); RBC 3.71 M/mm3 (3.60-5.2); RDW 14.9 % (11.6-15.6); WHITE BLOOD COUNT 9.9 K/mm3 (4.0-10.0)
[2020-10-05 09:33] LABS: BLOOD UREA NITROGEN 14.5 mg/dL (7-18); CALCIUM 8.8 mg/dL (8.5-10.1)
[2020-10-05 09:35] LABS: ALBUMIN 2.9 g/dl (3.4-5.0)
[2020-10-05 09:37] LABS: IRON SERUM 55 ug/dL (50-175)
[2020-10-05 09:38] LABS: BILIRUBIN,TOTAL 0.4 mg/dL (0.2-1); TOT PROT 6.6 g/dl (6.4-8.2); TOTAL IRON BINDING CAPACITY 266 ug/dL (250-450)
[2020-10-05] MEDS ORDERED: FAMOTIDINE 20 MG/50 ML IVPB 20 MG/50 ML MG IVPB SCH (10:00)
[2020-10-05] MEDS ORDERED: FAMOTIDINE 20 MG/50 ML IVPB 20 MG/50 ML MG IVPB ONE (10:15)
[2020-10-05] MEDS: LEVOTHYROXINE NA 50 MCG TABLET (FP) PO SCH (10:58)
[2020-10-05] MEDS: HYDROmorphone HCl 2 MG/ML VIAL IVPB PRN ×2 (11:04→18:33)
[2020-10-05] MEDS: PANTOPRAZOLE SODIUM 40 MG VIAL IVPUSH SCH (13:10)
[2020-10-05] MEDS: MAG HYDROX/AL HYDROX/SIMETH 30 ML UNIT-DOSE CUP PO PRN (13:48)
[2020-10-05] MEDS: ONDANSETRON 4 MG/2 ML VIAL IVPUSH PRN (17:17)
[2020-10-06] MEDS: ONDANSETRON 4 MG/2 ML VIAL IVPUSH PRN (00:59)
[2020-10-06] MEDS: LEVOTHYROXINE NA 50 MCG TABLET (FP) PO SCH (06:01)
[2020-10-06] MEDS: DEXTROSE 5%-0.45% SALINE 1,000 ML IV SCH ×2 (08:04→19:56)
[2020-10-06] MEDS ORDERED: ACETAMINOPHEN 500 MG TABLET (FP) PO ONE (10:45)
[2020-10-06 10:50] LABS: INR 1.03 (0.83-1.09); PROTHROMBIN TIME (PATIENT) 12.4 SEC (9.7-13.0)
[2020-10-06 10:54] LABS: BASO % 0.5 % (0-2.0); EOS % 0.1 % (0-4.5); LYMPH % 3.2 % (8-40); MCH 27.9 pg (25.7-33.7); MCHC 33.3 g/dl (32.0-36.0); MEAN CELL VOLUME 83.7 fl (80-96); MEAN PLT VOLUME 7.6 fl (7.5-11.1); MONO % 5.7 % (3.8-10.2); NEUT % 90.5 % (42.8-82.8); PLATELET COUNT 359 10^3/uL (134-434); RBC 3.59 M/mm3 (3.60-5.2); WHITE BLOOD COUNT 7.8 K/mm3 (4.0-10.0)
[2020-10-06] MEDS: MAG HYDROX/AL HYDROX/SIMETH 30 ML UNIT-DOSE CUP PO PRN (10:56)
[2020-10-06] MEDS: PANTOPRAZOLE SODIUM 40 MG VIAL IVPUSH SCH (10:57)
[2020-10-06 11:12] LABS: ALBUMIN 2.9 g/dl (3.4-5.0); BLOOD UREA NITROGEN 13.9 mg/dL (7-18); CALCIUM 8.8 mg/dL (8.5-10.1)
[2020-10-06 11:16] LABS: CREATININE 0.8 mg/dL (0.55-1.3)
[2020-10-06 11:17] LABS: BILIRUBIN,TOTAL 0.6 mg/dL (0.2-1); TOT PROT 6.5 g/dl (6.4-8.2)
[2020-10-06] MEDS ORDERED: CEFEPIME HCL 1 GM VIAL (RESTRICTED TO ID) ONE ×2 (13:57→19:42)
[2020-10-06] MEDS ORDERED: DEXTROSE 5%-WATER 100 ML IVPB ONE ×2 (13:57→19:42)
[2020-10-06] MEDS: CEFEPIME 1 GM in DEXTROSE 5%-WATER 1 GM/100 ML BAG IVPB SCH ×2 (14:16→20:04)
[2020-10-06] MEDS ORDERED: ALPRAZolam 1 MG TABLET PO PRN (15:31)
[2020-10-06 17:07] LABS: HEP B CORE AB, TOT Negative (Negative)
[2020-10-06] MEDS ORDERED: ACETAMINOPHEN 1000 MG/100 ML VIAL (NON FORMULARY) IVPB ONE (21:11)
[2020-10-07] MEDS ORDERED: DEXTROSE 5%-WATER 100 ML IVPB ONE ×3 (00:59→17:45)
[2020-10-07] MEDS ORDERED: CEFEPIME HCL 1 GM VIAL (RESTRICTED TO ID) ONE ×3 (00:59→17:45)
[2020-10-07] MEDS: CEFEPIME 1 GM in DEXTROSE 5%-WATER 1 GM/100 ML BAG IVPB SCH ×3 (01:11→18:01)
[2020-10-07 03:07] LABS: FIBROSIS SCORE. 0.32 (0.00-0.21); HCV ALPHA 2 MACRO CHART 184 mg/dL (110-276); NECRO.INFLAM ACT.SCORE 0.85 (0.00-0.17); NECROINFLAM. ACTIVITY GRADE A3-Severe activity (.)
[2020-10-07] MEDS: DEXTROSE 5%-0.45% SALINE 1,000 ML IV SCH (03:59)
[2020-10-07] MEDS: LEVOTHYROXINE NA 50 MCG TABLET (FP) PO SCH (06:44)
[2020-10-07] MEDS: PANTOPRAZOLE SODIUM 40 MG VIAL IVPUSH SCH (11:12)
[2020-10-07] MEDS: ALPRAZolam 0.25 MG TABLET PO PRN (15:15)
[2020-10-07] MEDS ORDERED: PT OWN MED DRAWER 7, Y5N ONE (21:07)
[2020-10-07] MEDS ORDERED: POLYETHYLENE GLYCOL 3350 119 GM BTL PO SCH (21:15)
[2020-10-07] MEDS: VENLAFAXINE HCL 75 MG TABLET PO SCH (21:20)
[2020-10-07] MEDS: POLYETHYLENE GLYCOL (HEALTHYLAX) 3350 17 GM PACKET PO SCH (21:20)
[2020-10-08] MEDS ORDERED: DEXTROSE 5%-WATER 100 ML IVPB ONE ×3 (01:15→17:35)
[2020-10-08] MEDS ORDERED: CEFEPIME HCL 1 GM VIAL (RESTRICTED TO ID) ONE ×3 (01:15→17:35)
[2020-10-08] MEDS: CEFEPIME 1 GM in DEXTROSE 5%-WATER 1 GM/100 ML BAG IVPB SCH ×3 (01:18→17:47)
[2020-10-08] MEDS: ALPRAZolam 0.25 MG TABLET PO PRN ×2 (03:16→20:53)
[2020-10-08] MEDS: ONDANSETRON 4 MG/2 ML VIAL IVPUSH PRN ×2 (03:16→08:25)
[2020-10-08] MEDS: DEXTROSE 5%-0.45% SALINE 1,000 ML IV SCH (06:06)
[2020-10-08] MEDS: LEVOTHYROXINE NA 50 MCG TABLET (FP) PO SCH (06:09)
[2020-10-08] MEDS ORDERED: PT OWN MED DRAWER 7, Y5N ONE ×3 (06:30→17:35)
[2020-10-08 08:15] LABS: BASO % 0.5 % (0-2.0); EOS % 0.8 % (0-4.5); HEMATOCRIT 30.9 % (32.4-45.2); HEMOGLOBIN 10.4 GM/dL (10.7-15.3); LYMPH % 8.4 % (8-40); MCHC 33.7 g/dl (32.0-36.0); MEAN CELL VOLUME 82.9 fl (80-96); MEAN PLT VOLUME 7.5 fl (7.5-11.1); NEUT % 80.3 % (42.8-82.8); PLATELET COUNT 321 10^3/uL (134-434); RBC 3.73 M/mm3 (3.60-5.2); RDW 14.8 % (11.6-15.6); WHITE BLOOD COUNT 5.5 K/mm3 (4.0-10.0)
[2020-10-08 08:38] LABS: CALCIUM 8.7 mg/dL (8.5-10.1)
[2020-10-08 08:39] LABS: ALBUMIN 2.7 g/dl (3.4-5.0)
[2020-10-08 08:40] LABS: CREATININE 0.8 mg/dL (0.55-1.3)
[2020-10-08 08:41] LABS: BILIRUBIN,TOTAL 0.3 mg/dL (0.2-1)
[2020-10-08 08:42] LABS: TOT PROT 6.6 g/dl (6.4-8.2)
[2020-10-08] MEDS: VENLAFAXINE HCL 75 MG TABLET PO SCH ×2 (08:48→17:47)
[2020-10-08] MEDS: POLYETHYLENE GLYCOL (HEALTHYLAX) 3350 17 GM PACKET PO SCH (10:17)
[2020-10-09] MEDS ORDERED: DEXTROSE 5%-WATER 100 ML IVPB ONE ×3 (00:55→15:30)
[2020-10-09] MEDS ORDERED: CEFEPIME HCL 1 GM VIAL (RESTRICTED TO ID) ONE ×2 (00:55→08:18)
[2020-10-09] MEDS: CEFEPIME 1 GM in DEXTROSE 5%-WATER 1 GM/100 ML BAG IVPB SCH ×2 (01:15→09:42)
[2020-10-09] MEDS: DEXTROSE 5%-0.45% SALINE 1,000 ML IV SCH (02:58)
[2020-10-09] MEDS: LEVOTHYROXINE NA 50 MCG TABLET (FP) PO SCH (06:01)
[2020-10-09] MEDS ORDERED: PT OWN MED DRAWER 7, Y5N ONE ×3 (08:18→16:05)
[2020-10-09] MEDS: VENLAFAXINE HCL 75 MG TABLET PO SCH ×2 (08:35→17:25)
[2020-10-09] MEDS: POLYETHYLENE GLYCOL (HEALTHYLAX) 3350 17 GM PACKET PO SCH (09:43)
[2020-10-09 09:47] LABS: BASO % 0.4 % (0-2.0); EOS % 1.5 % (0-4.5); HEMATOCRIT 31.2 % (32.4-45.2); HEMOGLOBIN 10.4 GM/dL (10.7-15.3); LYMPH % 8.5 % (8-40); MCH 27.4 pg (25.7-33.7); MCHC 33.4 g/dl (32.0-36.0); MEAN CELL VOLUME 82.1 fl (80-96); MEAN PLT VOLUME 6.9 fl (7.5-11.1); MONO % 8.7 % (3.8-10.2); NEUT % 80.9 % (42.8-82.8); PLATELET COUNT 363 10^3/uL (134-434); RBC 3.81 M/mm3 (3.60-5.2); RDW 14.7 % (11.6-15.6); WHITE BLOOD COUNT 6.2 K/mm3 (4.0-10.0)
[2020-10-09 10:10] LABS: ALBUMIN 2.7 g/dl (3.4-5.0); BLOOD UREA NITROGEN 7.1 mg/dL (7-18); CALCIUM 9.1 mg/dL (8.5-10.1)
[2020-10-09 10:13] LABS: CREATININE 0.9 mg/dL (0.55-1.3)
[2020-10-09 10:14] LABS: TOT PROT 6.6 g/dl (6.4-8.2)
[2020-10-09 10:15] LABS: BILIRUBIN,TOTAL 0.2 mg/dL (0.2-1)
[2020-10-09] MEDS: CEFTRIAXONE 2 GM in DEXTROSE 5%-WATER 100 ML IVPB SCH (15:59)
[2020-10-09] MEDS ORDERED: ACETAMINOPHEN 325 MG TABLET (FP) PO ONE (17:43)
[2020-10-09] MEDS: ALPRAZolam 0.25 MG TABLET PO PRN (22:48)
[2020-10-10] MEDS: DEXTROSE 5%-0.45% SALINE 1,000 ML IV SCH ×3 (01:31→22:31)
[2020-10-10] MEDS: LEVOTHYROXINE NA 50 MCG TABLET (FP) PO SCH (06:28)
[2020-10-10] MEDS ORDERED: PT OWN MED DRAWER 7, Y5N ONE ×2 (09:03→17:39)
[2020-10-10] MEDS ORDERED: DEXTROSE 5%-WATER 100 ML IVPB ONE (09:03)
[2020-10-10] MEDS: POLYETHYLENE GLYCOL (HEALTHYLAX) 3350 17 GM PACKET PO SCH (09:10)
[2020-10-10] MEDS: VENLAFAXINE HCL 75 MG TABLET PO SCH ×2 (09:10→18:13)
[2020-10-10 11:06] LABS: BASO % 0.6 % (0-2.0); EOS % 2.4 % (0-4.5); HEMATOCRIT 29.5 % (32.4-45.2); HEMOGLOBIN 9.7 GM/dL (10.7-15.3); LYMPH % 11.4 % (8-40); MCH 27.2 pg (25.7-33.7); MCHC 32.9 g/dl (32.0-36.0); MEAN CELL VOLUME 82.6 fl (80-96); MONO % 9.7 % (3.8-10.2); NEUT % 75.9 % (42.8-82.8); PLATELET COUNT 373 10^3/uL (134-434); RBC 3.58 M/mm3 (3.60-5.2); RDW 14.9 % (11.6-15.6); WHITE BLOOD COUNT 5.7 K/mm3 (4.0-10.0)
[2020-10-10 11:26] LABS: CALCIUM 8.5 mg/dL (8.5-10.1)
[2020-10-10 11:27] LABS: BLOOD UREA NITROGEN 8.9 mg/dL (7-18); MAGNESIUM 2.1 mg/dL (1.8-2.4)
[2020-10-10] MEDS: CEFTRIAXONE 2 GM in DEXTROSE 5%-WATER 100 ML IVPB SCH (11:29)
[2020-10-10 11:30] LABS: CREATININE 0.7 mg/dL (0.55-1.3)
[2020-10-10] MEDS: SENNOSIDES 8.6MG TABLET (FP) PO SCH (21:42)
[2020-10-10] MEDS: ALPRAZolam 0.25 MG TABLET PO PRN (21:42)
[2020-10-11] MEDS: LEVOTHYROXINE NA 50 MCG TABLET (FP) PO SCH (06:09)
[2020-10-11] MEDS ORDERED: PT OWN MED DRAWER 7, Y5N ONE (09:20)
[2020-10-11 09:21] LABS: BASO % 0.8 % (0-2.0); EOS % 3.7 % (0-4.5); HEMATOCRIT 30.5 % (32.4-45.2); HEMOGLOBIN 10.2 GM/dL (10.7-15.3); LYMPH % 13.8 % (8-40); MCHC 33.6 g/dl (32.0-36.0); MEAN CELL VOLUME 83.4 fl (80-96); MEAN PLT VOLUME 7.3 fl (7.5-11.1); MONO % 8.8 % (3.8-10.2); NEUT % 72.9 % (42.8-82.8); PLATELET COUNT 477 10^3/uL (134-434); RBC 3.66 M/mm3 (3.60-5.2); RDW 14.9 % (11.6-15.6); WHITE BLOOD COUNT 6.6 K/mm3 (4.0-10.0)
[2020-10-11] MEDS: VENLAFAXINE HCL 75 MG TABLET PO SCH ×2 (09:32→17:43)
[2020-10-11] MEDS: DEXTROSE 5%-0.45% SALINE 1,000 ML IV SCH ×2 (09:33→19:52)
[2020-10-11] MEDS: POLYETHYLENE GLYCOL (HEALTHYLAX) 3350 17 GM PACKET PO SCH (09:34)
[2020-10-11 10:07] LABS: ALBUMIN 2.8 g/dl (3.4-5.0)
[2020-10-11 10:09] LABS: BILIRUBIN,DIRECT 0.1 mg/dL (0.0-0.2); CALCIUM 8.9 mg/dL (8.5-10.1)
[2020-10-11 10:10] LABS: BLOOD UREA NITROGEN 8.2 mg/dL (7-18)
[2020-10-11 10:11] LABS: BILIRUBIN,TOTAL 0.2 mg/dL (0.2-1)
[2020-10-11 10:12] LABS: TOT PROT 6.7 g/dl (6.4-8.2)
[2020-10-11 10:13] LABS: CREATININE 0.7 mg/dL (0.55-1.3)
[2020-10-11] MEDS ORDERED: DEXTROSE 5%-WATER 100 ML IVPB ONE (10:45)
[2020-10-11] MEDS: CEFTRIAXONE 2 GM in DEXTROSE 5%-WATER 100 ML IVPB SCH (11:27)
[2020-10-11] MEDS: ALPRAZolam 0.25 MG TABLET PO PRN (20:55)
[2020-10-11] MEDS: SENNOSIDES 8.6MG TABLET (FP) PO SCH (21:26)
[2020-10-12] MEDS: LEVOTHYROXINE NA 50 MCG TABLET (FP) PO SCH (06:18)
[2020-10-12] MEDS ORDERED: PT OWN MED DRAWER 7, Y5N ONE (09:07)
[2020-10-12] MEDS ORDERED: DEXTROSE 5%-WATER 100 ML IVPB ONE (09:08)
[2020-10-12] MEDS: CEFTRIAXONE 2 GM in DEXTROSE 5%-WATER 100 ML IVPB SCH (09:17)
[2020-10-12] MEDS: POLYETHYLENE GLYCOL (HEALTHYLAX) 3350 17 GM PACKET PO SCH (09:17)
[2020-10-12] MEDS: MAG HYDROX/AL HYDROX/SIMETH 30 ML UNIT-DOSE CUP PO PRN (09:17)
[2020-10-12] MEDS: DEXTROSE 5%-0.45% SALINE 1,000 ML IV SCH (09:18)
[2020-10-12 09:25] VITALS: BP 124/64; PULSE 77; TEMP 98
[2020-10-12] MEDS: VENLAFAXINE HCL 75 MG TABLET PO SCH (11:00)
== END 2020-10-12 14:19 | disposition home or self-care (01) | DRG 445 ==
LOC: JER 21:51 → JERBED 10-05 03:00 → J5S 10-05 06:29
PROVIDERS: ADMIT Internal Medicine; ATTEND Family Medicine
DX: K83.8 Other specified diseases of biliary tract (principal); R78.81 Bacteremia; R19.5 Other fecal abnormalities; R74.01 Elevation of levels of liver transaminase levels; R10.13 Epigastric pain; K21.9 Gastro-esophageal reflux disease without esophagitis; I25.10 Atherosclerotic heart disease of native coronary artery without angina pectoris; F41.8 Other specified anxiety disorders; E03.9 Hypothyroidism, unspecified
CPT/HCPCS: 36415; 71045-TC-FY; 74176-TC; 74181-TC; 76705-TC; 80048; 80053; 80076; 81003; 82172; 82550; 82977; 83010; 83540; 83550; 83690; 83735; 83883; 84460; 84484; 85025; 85610; 86140; 86704; 86706; 86707; 86708; 86709; 86803; 87040; 87086; 87186; 87340; 87350; 93005; 93010; 99285-25; C9803; J0131; U0003; U0005

== ENCOUNTER 2020-11-21 08:37 | Day surgery (SDC) | payer OTHER ==
[2020-11-21] MEDS ORDERED: IRON SUCROSE INJECTION 200 MG in SODIUM CHLORIDE 100 ML IVPB ONE (11:30)
[2020-11-21 17:22] VITALS: BP 109/56; PULSE 79; TEMP 98.7
== END 2020-11-21 13:13 | disposition home or self-care (01) ==
LOC: JONCNONCHE 08:37
PROVIDERS: ATTEND Internal Medicine Hematology & Oncology
PROC: 3E033GC Introduction of Other Therapeutic Substance into Peripheral Vein, Percutaneous Approach (ICD-10-PCS; principal; 2020-11-21)
DX: D50.9 Iron deficiency anemia, unspecified (principal)
CPT/HCPCS: 96365; J1756

== ENCOUNTER 2020-11-27 10:36 | Day surgery (SDC) | payer OTHER ==
[2020-11-27] MEDS ORDERED: IRON SUCROSE INJECTION 200 MG in SODIUM CHLORIDE 100 ML IVPB ONE (11:00)
[2020-11-27 17:44] VITALS: BP 125/66; PULSE 78; TEMP 98.8
== END 2020-11-27 11:40 | disposition home or self-care (01) ==
LOC: JONCNONCHE 10:36
PROVIDERS: ATTEND Internal Medicine Hematology & Oncology
PROC: 3E033GC Introduction of Other Therapeutic Substance into Peripheral Vein, Percutaneous Approach (ICD-10-PCS; principal; 2020-11-27)
DX: D50.9 Iron deficiency anemia, unspecified (principal)
CPT/HCPCS: 96365; J1756

== ENCOUNTER 2020-12-04 10:04 | Day surgery (SDC) | payer OTHER ==
[2020-12-04] MEDS ORDERED: IRON SUCROSE INJECTION 200 MG in SODIUM CHLORIDE 100 ML IVPB ONE (10:30)
[2020-12-04 15:51] VITALS: BP 149/68; PULSE 70; TEMP 98.7
== END 2020-12-04 11:30 | disposition home or self-care (01) ==
LOC: JONCCHEMO 10:04
PROVIDERS: ATTEND Internal Medicine Hematology & Oncology
PROC: 3E033GC Introduction of Other Therapeutic Substance into Peripheral Vein, Percutaneous Approach (ICD-10-PCS; principal; 2020-12-04)
DX: D50.9 Iron deficiency anemia, unspecified (principal)
CPT/HCPCS: 96365; J1756

== ENCOUNTER 2020-12-11 10:56 | Day surgery (SDC) | payer OTHER ==
[2020-12-11] MEDS ORDERED: IRON SUCROSE INJECTION 200 MG in SODIUM CHLORIDE 100 ML IVPB ONE (11:30)
[2020-12-11 16:29] VITALS: BP 155/69; PULSE 76; TEMP 98.3
== END 2020-12-11 12:30 | disposition home or self-care (01) ==
LOC: JONCCHEMO 10:56
PROVIDERS: ATTEND Internal Medicine Hematology & Oncology
PROC: 3E033GC Introduction of Other Therapeutic Substance into Peripheral Vein, Percutaneous Approach (ICD-10-PCS; principal; 2020-12-11)
DX: D50.9 Iron deficiency anemia, unspecified (principal)
CPT/HCPCS: 96365; J1756

== ENCOUNTER 2021-05-18 06:28 | Day surgery (SDC) | payer OTHER ==
[2021-05-18] MEDS ORDERED: CYANOCOBALAMIN (VITAMIN B-12) 1000 MCG/1 ML VIAL IM ONE (10:15)
[2021-05-18] MEDS ORDERED: IRON SUCROSE INJECTION 200 MG in SODIUM CHLORIDE 100 ML IVPB ONE (10:15)
[2021-05-18 14:33] VITALS: PULSE 75; TEMP 98.1
[2021-05-18 14:34] VITALS: BP 103/55
== END 2021-05-18 11:10 | disposition home or self-care (01) ==
LOC: JONCNONCHE 06:28
PROVIDERS: ATTEND Internal Medicine Hematology & Oncology
PROC: 3E033GC Introduction of Other Therapeutic Substance into Peripheral Vein, Percutaneous Approach (ICD-10-PCS; principal; 2021-05-18)
DX: D50.9 Iron deficiency anemia, unspecified (principal)
CPT/HCPCS: 96365; J1756

== ENCOUNTER 2021-05-25 08:17 | Day surgery (SDC) | payer OTHER ==
[2021-05-25] MEDS ORDERED: IRON SUCROSE INJECTION 200 MG in SODIUM CHLORIDE 100 ML IVPB ONE (10:00)
[2021-05-25] MEDS ORDERED: SODIUM CHLORIDE 250 ML IV STA (10:27)
[2021-05-25 16:32] VITALS: BP 79/41; PULSE 75; TEMP 98.1
== END 2021-05-25 12:50 | disposition home or self-care (01) ==
LOC: JONCNONCHE 08:17
PROVIDERS: ATTEND Internal Medicine Hematology & Oncology
PROC: 3E033GC Introduction of Other Therapeutic Substance into Peripheral Vein, Percutaneous Approach (ICD-10-PCS; principal; 2021-05-25)
DX: E61.1 Iron deficiency (principal); E53.8 Deficiency of other specified B group vitamins
CPT/HCPCS: 96365; J1756

== ENCOUNTER 2021-05-29 17:33 | Inpatient (IN) | payer OTHER ==
[2021-05-29 18:28] LABS: BASO % 0.5 % (0-2.0); EOS % 1.1 % (0-4.5); HEMATOCRIT 32.5 % (32.4-45.2); HEMOGLOBIN 10.8 GM/dL (10.7-15.3); MCH 29.1 pg (25.7-33.7); MCHC 33.3 g/dl (32.0-36.0); MEAN CELL VOLUME 87.4 fl (80-96); MONO % 6.2 % (3.8-10.2); NEUT % 79.2 % (42.8-82.8); PLATELET COUNT 359 10^3/uL (134-434); RBC 3.72 M/mm3 (3.60-5.2); RDW 14.6 % (11.6-15.6); WHITE BLOOD COUNT 7.3 K/mm3 (4.0-10.0)
[2021-05-29 18:32] LABS: INR 0.98 (0.83-1.09); PROTHROMBIN TIME (PATIENT) 11.3 SEC (9.7-13.0)
[2021-05-29 18:34] LABS: ACTIVATED PTT 31.5 SECONDS (25.2-36.5)
[2021-05-29 18:50] LABS: ALBUMIN 3.3 g/dl (3.4-5.0)
[2021-05-29 18:53] LABS: CREATININE 0.9 mg/dL (0.55-1.3)
[2021-05-29 18:54] LABS: BILIRUBIN,TOTAL 0.2 mg/dL (0.2-1); TOT PROT 6.9 g/dl (6.4-8.2)
[2021-05-29] MEDS ORDERED: ASPIRIN 81 MG CHEWABLE TABLETS PO ONE (20:27)
[2021-05-29] MEDS ORDERED: CLOPIDOGREL BISULFATE 300 MG TABLET PO ONE (20:27)
[2021-05-29] MEDS ORDERED: SODIUM CHLORIDE 0.9% 500 ML INFUS.BAG IV ONE (20:33)
[2021-05-29 20:39] LABS: EPI CELLS 11 /uL (0-25.1); HYALINE CASTS 0 /uL (0-3.1); URINE APPEARANCE CLEAR; URINE BACTERIA 152 /uL (0-1359); URINE BILIRUBIN NEGATIVE (NEGATIVE); URINE COLOR YELLOW; URINE GLUCOSE (UA) NEGATIVE (NEGATIVE); URINE KETONE NEGATIVE (NEGATIVE); URINE LEUK ESTERASE 1+ (NEGATIVE); URINE NITRITE NEGATIVE (NEGATIVE); URINE PROTEIN NEGATIVE (NEGATIVE); URINE RBC 1 /uL (0-23.9); URINE UROBILINOGEN 0.2 mg/dL (0.2-1.0); URINE WBC 37 /uL (0-25.8)
[2021-05-29] MEDS ORDERED: ASPIRIN 81 MG CHEWABLE TABLETS ONE (20:55)
[2021-05-29] MEDS ORDERED: CLOPIDOGREL BISULFATE 300 MG TABLET ONE (20:55)
[2021-05-29] MEDS: SODIUM CHLORIDE 1,000 ML IV SCH (21:43)
[2021-05-29] MEDS ORDERED: ERYTHROMYCIN 0.5% OPHTHALMIC OINTMENT 3.5 GM TUBE OU ONE (22:35)
[2021-05-29] MEDS ORDERED: ATORVASTATIN CA 40 MG TABLET (FP) PO ONE (22:38)
[2021-05-29] MEDS ORDERED: ATORVASTATIN CA 40 MG TABLET (FP) ONE (23:09)
[2021-05-29] MEDS ORDERED: ERYTHROMYCIN 0.5% OPHTHALMIC OINTMENT 3.5 GM TUBE ONE (23:34)
[2021-05-30 06:59] LABS: BASO % 0.6 % (0-2.0); EOS % 2.5 % (0-4.5); HEMATOCRIT 31.4 % (32.4-45.2); HEMOGLOBIN 10.7 GM/dL (10.7-15.3); MCH 29.7 pg (25.7-33.7); MCHC 34.2 g/dl (32.0-36.0); MEAN CELL VOLUME 86.8 fl (80-96); MONO % 6.8 % (3.8-10.2); NEUT % 80.1 % (42.8-82.8); PLATELET COUNT 322 10^3/uL (134-434); RBC 3.61 M/mm3 (3.60-5.2); RDW 14.7 % (11.6-15.6); WHITE BLOOD COUNT 6.2 K/mm3 (4.0-10.0)
[2021-05-30 07:39] LABS: ALBUMIN 3.1 g/dl (3.4-5.0); BLOOD UREA NITROGEN 19.4 mg/dL (7-18); CALCIUM 8.7 mg/dL (8.5-10.1)
[2021-05-30 07:42] LABS: CREATININE 0.8 mg/dL (0.55-1.3)
[2021-05-30 07:44] LABS: BILIRUBIN,TOTAL 0.2 mg/dL (0.2-1); TOT PROT 6.5 g/dl (6.4-8.2)
[2021-05-30] MEDS: TIOTROPIUM BROMIDE 2.5 MCG (SPIRIVA) RESPIMAT INHALER IH SCH (11:45)
[2021-05-30] MEDS: CLOPIDOGREL BISULFATE 75 MG TABLET (FP) PO SCH (12:45)
[2021-05-30] MEDS: ASPIRIN 81 MG CHEWABLE TABLETS PO SCH (12:46)
[2021-05-30] MEDS ORDERED: LEVOTHYROXINE NA 75 MCG TABLET (FP) ONE (12:59)
[2021-05-30] MEDS ORDERED: CLOPIDOGREL BISULFATE 75 MG TABLET (FP) ONE (12:59)
[2021-05-30] MEDS ORDERED: ASPIRIN 81 MG CHEWABLE TABLETS ONE (13:00)
[2021-05-30] MEDS: LEVOTHYROXINE NA 75 MCG TABLET (FP) PO SCH (13:05)
[2021-05-30] MEDS ORDERED: ACETAMINOPHEN 325 MG TABLET (FP) PO PRN (17:16)
[2021-05-30] MEDS ORDERED: ACETAMINOPHEN 325 MG TABLET (FP) ONE (18:39)
[2021-05-30] MEDS ORDERED: ERYTHROMYCIN 0.5% OPHTHALMIC OINTMENT 3.5 GM TUBE ONE (18:42)
[2021-05-30] MEDS: SODIUM CHLORIDE 1,000 ML IV SCH ×2 (20:55→22:25)
[2021-05-30] MEDS ORDERED: ATORVASTATIN CA 40 MG TABLET (FP) ONE (22:11)
[2021-05-30] MEDS: ATORVASTATIN CA 40 MG TABLET (FP) PO SCH (22:23)
[2021-05-31 01:49] VITALS: BMI 22.8
[2021-05-31] MEDS: LEVOTHYROXINE NA 75 MCG TABLET (FP) PO SCH (06:04)
[2021-05-31] MEDS: ASPIRIN 81 MG CHEWABLE TABLETS PO SCH ×2 (10:08→11:22)
[2021-05-31] MEDS: CLOPIDOGREL BISULFATE 75 MG TABLET (FP) PO SCH ×2 (10:08→11:54)
[2021-05-31] MEDS: TIOTROPIUM BROMIDE 2.5 MCG (SPIRIVA) RESPIMAT INHALER IH SCH (10:10)
[2021-05-31] MEDS: SODIUM CHLORIDE 1,000 ML IV SCH (18:40)
[2021-05-31] MEDS: ATORVASTATIN CA 40 MG TABLET (FP) PO SCH (21:48)
[2021-06-01] MEDS: LEVOTHYROXINE NA 75 MCG TABLET (FP) PO SCH (06:01)
[2021-06-01 08:33] LABS: HEMATOCRIT 31.2 % (32.4-45.2); HEMOGLOBIN 10.6 GM/dL (10.7-15.3); MCH 29.6 pg (25.7-33.7); MCHC 34.1 g/dl (32.0-36.0); MEAN CELL VOLUME 86.9 fl (80-96); MEAN PLT VOLUME 7.1 fl (7.5-11.1); PLATELET COUNT 307 10^3/uL (134-434); RBC 3.59 M/mm3 (3.60-5.2); RDW 14.7 % (11.6-15.6); WHITE BLOOD COUNT 5.9 K/mm3 (4.0-10.0)
[2021-06-01 08:51] LABS: CALCIUM 8.5 mg/dL (8.5-10.1)
[2021-06-01 08:52] LABS: ALBUMIN 2.7 g/dl (3.4-5.0); BLOOD UREA NITROGEN 14.6 mg/dL (7-18); MAGNESIUM 1.9 mg/dL (1.8-2.4)
[2021-06-01 08:55] LABS: CREATININE 0.8 mg/dL (0.55-1.3)
[2021-06-01 08:57] LABS: BILIRUBIN,TOTAL 0.2 mg/dL (0.2-1); TOT PROT 6.1 g/dl (6.4-8.2)
[2021-06-01] MEDS: CLOPIDOGREL BISULFATE 75 MG TABLET (FP) PO SCH (11:10)
[2021-06-01] MEDS: ASPIRIN 81 MG CHEWABLE TABLETS PO SCH (11:10)
[2021-06-01] MEDS: TIOTROPIUM BROMIDE 2.5 MCG (SPIRIVA) RESPIMAT INHALER IH SCH (11:13)
[2021-06-01] MEDS ORDERED: CYANOCOBALAMIN (VITAMIN B-12) 1000 MCG/1 ML VIAL IM ONE (11:30)
[2021-06-01] MEDS ORDERED: IRON SUCROSE INJECTION 300 MG in SODIUM CHLORIDE 235 ML IVPB ONE (13:00)
[2021-06-01] MEDS: SODIUM CHLORIDE 1,000 ML IV SCH (18:22)
[2021-06-01] MEDS: ATORVASTATIN CA 40 MG TABLET (FP) PO SCH (21:11)
[2021-06-02] MEDS: LEVOTHYROXINE NA 75 MCG TABLET (FP) PO SCH (06:46)
[2021-06-02] MEDS: SODIUM CHLORIDE 1,000 ML IV SCH (06:47)
[2021-06-02] MEDS: ASPIRIN 81 MG CHEWABLE TABLETS PO SCH ×2 (10:39→10:50)
[2021-06-02] MEDS: CLOPIDOGREL BISULFATE 75 MG TABLET (FP) PO SCH ×3 (10:39→12:04)
[2021-06-02] MEDS: TIOTROPIUM BROMIDE 2.5 MCG (SPIRIVA) RESPIMAT INHALER IH SCH (10:39)
[2021-06-02 12:30] LABS: HEMATOCRIT 31.2 % (32.4-45.2); HEMOGLOBIN 10.5 GM/dL (10.7-15.3); MCH 29.5 pg (25.7-33.7); MCHC 33.7 g/dl (32.0-36.0); MEAN CELL VOLUME 87.7 fl (80-96); MEAN PLT VOLUME 6.8 fl (7.5-11.1); PLATELET COUNT 301 10^3/uL (134-434); RBC 3.56 M/mm3 (3.60-5.2); RDW 14.9 % (11.6-15.6); WHITE BLOOD COUNT 6.9 K/mm3 (4.0-10.0)
[2021-06-02 13:07] LABS: BLOOD UREA NITROGEN 15.2 mg/dL (7-18); CALCIUM 8.8 mg/dL (8.5-10.1); MAGNESIUM 1.7 mg/dL (1.8-2.4)
[2021-06-02 13:11] LABS: CREATININE 0.8 mg/dL (0.55-1.3)
[2021-06-02] MEDS: ATORVASTATIN CA 40 MG TABLET (FP) PO SCH (21:03)
[2021-06-03] MEDS: LEVOTHYROXINE NA 75 MCG TABLET (FP) PO SCH (06:27)
[2021-06-03 09:23] VITALS: BP 151/64; PULSE 68; TEMP 97.6
[2021-06-03] MEDS: CLOPIDOGREL BISULFATE 75 MG TABLET (FP) PO SCH (10:31)
[2021-06-03] MEDS: ASPIRIN 81 MG CHEWABLE TABLETS PO SCH (10:31)
[2021-06-03] MEDS: TIOTROPIUM BROMIDE 2.5 MCG (SPIRIVA) RESPIMAT INHALER IH SCH (10:32)
[2021-06-04] MEDS ORDERED: LEVOTHYROXINE NA 50 MCG TABLET (FP) PO SCH (07:00)
== END 2021-06-03 13:15 | disposition home or self-care (01) | DRG 69 ==
LOC: JER 17:33 → JERBED 20:24 → J4S 05-31 00:13
PROVIDERS: ADMIT Internal Medicine; ATTEND Family Medicine
DX: G45.9 Transient cerebral ischemic attack, unspecified (principal); I47.2 Ventricular tachycardia; I10 Essential (primary) hypertension; E78.5 Hyperlipidemia, unspecified; I25.10 Atherosclerotic heart disease of native coronary artery without angina pectoris; E11.9 Type 2 diabetes mellitus without complications; J44.9 Chronic obstructive pulmonary disease, unspecified; I25.2 Old myocardial infarction; K21.9 Gastro-esophageal reflux disease without esophagitis; D50.9 Iron deficiency anemia, unspecified; F41.8 Other specified anxiety disorders; E03.9 Hypothyroidism, unspecified; K44.9 Diaphragmatic hernia without obstruction or gangrene; R74.8 Abnormal levels of other serum enzymes; H54.62 Unqualified visual loss, left eye, normal vision right eye; H53.142 Visual discomfort, left eye; R94.31 Abnormal electrocardiogram [ECG] [EKG]; Z90.3 Acquired absence of stomach [part of]; Z87.11 Personal history of peptic ulcer disease
CPT/HCPCS: 36415; 70450-TC; 70551-TC; 71045-TC-FY; 80048; 80053; 80061; 81003; 82607; 83036; 83735; 84443; 84484; 85025; 85027; 85610; 85730; 86850; 86900; 86901; 87086; 93005; 93010; 93306-TC; 97116-GP; 97161-GP; 99285-25; C9803-CS; J1756; U0003; U0005

== ENCOUNTER 2021-06-08 07:21 | Day surgery (SDC) | payer OTHER ==
[~2021-06-08 07:21] MED LIST: IRON SUCROSE INJECTION 200 MG in SODIUM CHLORIDE 100 ML IVPB ONE
[2021-06-08] MEDS ORDERED: CYANOCOBALAMIN (VITAMIN B-12) 1000 MCG/1 ML VIAL IM ONE (10:00)
[2021-06-08] MEDS ORDERED: IRON SUCROSE INJECTION 200 MG in SODIUM CHLORIDE 100 ML IVPB ONE (10:00)
[2021-06-08 17:17] VITALS: BP 96/49; PULSE 62; TEMP 97.6
== END 2021-06-08 11:10 | disposition home or self-care (01) ==
LOC: JONCNONCHE 07:21
PROVIDERS: ATTEND Internal Medicine Hematology & Oncology
PROC: 3E033GC Introduction of Other Therapeutic Substance into Peripheral Vein, Percutaneous Approach (ICD-10-PCS; principal; 2021-06-08)
PROC: 3E013GC Introduction of Other Therapeutic Substance into Subcutaneous Tissue, Percutaneous Approach (ICD-10-PCS; 2021-06-08)
DX: E61.1 Iron deficiency (principal); E53.8 Deficiency of other specified B group vitamins
CPT/HCPCS: 96365; 96372; J1756

== ENCOUNTER 2021-12-03 08:02 | Day surgery (SDC) | payer OTHER ==
[2021-12-03] MEDS ORDERED: IRON SUCROSE INJECTION 200 MG in SODIUM CHLORIDE 100 ML IVPB ONE (10:00)
[2021-12-03 16:37] VITALS: BP 115/52; PULSE 84; RESP 18; TEMP 97.7
== END 2021-12-03 11:20 | disposition home or self-care (01) ==
LOC: JONCNONCHE 08:02
PROVIDERS: ATTEND Internal Medicine Hematology & Oncology
PROC: 3E033GC Introduction of Other Therapeutic Substance into Peripheral Vein, Percutaneous Approach (ICD-10-PCS; principal; 2021-12-03)
DX: D50.9 Iron deficiency anemia, unspecified (principal)
CPT/HCPCS: 96365; J1756

== ENCOUNTER 2021-12-10 09:53 | Day surgery (SDC) | payer OTHER ==
[2021-12-10 10:17] VITALS: RESP 18; TEMP 97.8
[2021-12-10] MEDS ORDERED: IRON SUCROSE INJECTION 200 MG in SODIUM CHLORIDE 100 ML IVPB ONE (11:00)
[2021-12-10 11:31] VITALS: BP 141/63; PULSE 63
== END 2021-12-10 11:45 | disposition home or self-care (01) ==
LOC: JONCNONCHE 09:53
PROVIDERS: ATTEND Internal Medicine Hematology & Oncology
PROC: 3E033GC Introduction of Other Therapeutic Substance into Peripheral Vein, Percutaneous Approach (ICD-10-PCS; principal; 2021-12-10)
DX: D50.9 Iron deficiency anemia, unspecified (principal)
CPT/HCPCS: 96365; J1756

== ENCOUNTER 2021-12-13 12:22 | Inpatient (IN) | payer OTHER ==
[2021-12-13 15:21] LABS: BASO % 0.7 % (0-2.0); EOS % 2.6 % (0-4.5); HEMATOCRIT 28.8 % (32.4-45.2); HEMOGLOBIN 9.4 GM/dL (10.7-15.3); LYMPH % 13.6 % (8-40); MCH 27.4 pg (25.7-33.7); MCHC 32.6 g/dl (32.0-36.0); MEAN CELL VOLUME 84.2 fl (80-96); MEAN PLT VOLUME 7.1 fl (7.5-11.1); MONO % 6.7 % (3.8-10.2); NEUT % 76.4 % (42.8-82.8); PLATELET COUNT 469 10^3/uL (134-434); RBC 3.42 M/mm3 (3.60-5.2); RDW 16.5 % (11.6-15.6); WHITE BLOOD COUNT 7.2 K/mm3 (4.0-10.0)
[2021-12-13 15:54] LABS: CHLORIDE 106 mmol/L (98-107); SODIUM 141 mmol/L (136-145)
[2021-12-13 15:55] LABS: CALCIUM 9.4 mg/dL (8.5-10.1)
[2021-12-13 15:56] LABS: ANION GAP 9 MMOL/L (8-16); BLOOD UREA NITROGEN 12.2 mg/dL (7-18); CO2 26 mmol/L (21-32); GLUCOSE,RANDOM 92 mg/dL (74-106)
[2021-12-13] MEDS ORDERED: methylPREDNISolone NA SUCC 125 MG/2 ML VIAL IVPUSH ONE (15:57)
[2021-12-13 15:59] LABS: CREATININE 0.8 mg/dL (0.55-1.3); SGOT/AST 25 U/L (15-37); SGPT/ALT 19 U/L (13-61)
[2021-12-13 16:00] LABS: BILIRUBIN,TOTAL 0.2 mg/dL (0.2-1)
[2021-12-13 16:01] LABS: TOT PROT 6.9 g/dl (6.4-8.2)
[2021-12-13 16:02] LABS: ALK PHOS 96 U/L (45-117)
[2021-12-13] MEDS ORDERED: methylPREDNISolone NA SUCC 1000 MG/8 ML VIAL IVPUSH ONE (16:30)
[2021-12-14 01:48] VITALS: BMI 21.7
[2021-12-14] MEDS ORDERED: ACETAMINOPHEN 325 MG TABLET (FP) PO PRN (06:16)
[2021-12-14 09:31] LABS: HEMATOCRIT 28.5 % (32.4-45.2); HEMOGLOBIN 9.1 GM/dL (10.7-15.3); MCH 27.2 pg (25.7-33.7); MEAN CELL VOLUME 84.9 fl (80-96); MEAN PLT VOLUME 7.3 fl (7.5-11.1); PLATELET COUNT 461 10^3/uL (134-434); RBC 3.36 M/mm3 (3.60-5.2); RDW 16.6 % (11.6-15.6); WHITE BLOOD COUNT 6.4 K/mm3 (4.0-10.0)
[2021-12-14] MEDS: TIOTROPIUM BROMIDE 2.5 MCG (SPIRIVA) RESPIMAT INHALER IH SCH (09:48)
[2021-12-14] MEDS: BRIMONIDINE TARTRATE 0.2% OPHTHALMIC 5 ML BOTTLE OD SCH ×2 (09:51→21:16)
[2021-12-14] MEDS: VENLAFAXINE HCL 75 MG E.R. CAPSULES PO SCH ×2 (09:53→21:15)
[2021-12-14] MEDS: LEVOTHYROXINE NA 50 MCG TABLET (FP) PO SCH (09:53)
[2021-12-14] MEDS: BUDESONIDE/FORMETEROL FUMARATE 160/4.5 mcg INHALER IH SCH ×2 (09:54→21:16)
[2021-12-14] MEDS: ALPRAZolam 0.25 MG TABLET PO PRN ×2 (09:58→21:22)
[2021-12-14 10:09] LABS: ANISOCYTOSIS 0; HELMET CELLS 0; HOWELL-JOLLY BODIES 0; MACROCYTOSIS 0; OVALOCYTE 0; ROULEAU 0; SICKELED CELLS 0; TARGET CELLS 0; TEAR DROP CELLS 0; TOXIC GRANULATION 0
[2021-12-14 10:17] LABS: ALBUMIN 2.8 g/dl (3.4-5.0); CALCIUM 9.3 mg/dL (8.5-10.1)
[2021-12-14 10:18] LABS: BLOOD UREA NITROGEN 16.9 mg/dL (7-18)
[2021-12-14 10:20] LABS: CREATININE 0.9 mg/dL (0.55-1.3)
[2021-12-14 10:21] LABS: BILIRUBIN,TOTAL 0.6 mg/dL (0.2-1); TOT PROT 6.7 g/dl (6.4-8.2)
[2021-12-14 10:29] LABS: ERYTHROCYTE SEDIMENTATION RATE 63 mm/hr (0-30)
[2021-12-14] MEDS: LIPASE/PROTEASE/AMYLASE 36,000 UNIT CAPSULE PO SCH ×2 (11:55→17:18)
[2021-12-14] MEDS: SUCRALFATE 1 GM TABLET (FP) PO SCH ×2 (14:56→21:15)
[2021-12-14] MEDS ORDERED: guaiFENesin/CODEINE 5 ML UNIT-DOSE CUPS PO PRN (15:08)
[2021-12-14] MEDS: ATORVASTATIN CA 40 MG TABLET (FP) PO SCH (21:15)
[2021-12-15 01:18] LABS: EPI CELLS 10 /uL (0-25.1); HYALINE CASTS 0 /uL (0-3.1); URINE APPEARANCE CLEAR; URINE BACTERIA 34 /uL (0-1359); URINE BILIRUBIN NEGATIVE (NEGATIVE); URINE COLOR YELLOW; URINE GLUCOSE (UA) NEGATIVE (NEGATIVE); URINE KETONE NEGATIVE (NEGATIVE); URINE LEUK ESTERASE 1+ (NEGATIVE); URINE NITRITE NEGATIVE (NEGATIVE); URINE PROTEIN NEGATIVE (NEGATIVE); URINE RBC 7 /uL (0-23.9); URINE UROBILINOGEN 0.2 mg/dL (0.2-1.0); URINE WBC 21 /uL (0-25.8)
[2021-12-15] MEDS: SUCRALFATE 1 GM TABLET (FP) PO SCH ×3 (06:45→21:03)
[2021-12-15] MEDS: LEVOTHYROXINE NA 50 MCG TABLET (FP) PO SCH (07:07)
[2021-12-15 07:44] LABS: URINE CRYSTALS NONE SEEN /hpf
[2021-12-15] MEDS: LIPASE/PROTEASE/AMYLASE 36,000 UNIT CAPSULE PO SCH ×3 (09:33→17:20)
[2021-12-15] MEDS: VENLAFAXINE HCL 75 MG E.R. CAPSULES PO SCH ×2 (09:33→21:01)
[2021-12-15] MEDS: BRIMONIDINE TARTRATE 0.2% OPHTHALMIC 5 ML BOTTLE OD SCH ×2 (09:34→21:02)
[2021-12-15] MEDS: BUDESONIDE/FORMETEROL FUMARATE 160/4.5 mcg INHALER IH SCH ×2 (09:39→21:04)
[2021-12-15] MEDS: TIOTROPIUM BROMIDE 2.5 MCG (SPIRIVA) RESPIMAT INHALER IH SCH (09:39)
[2021-12-15] MEDS: ALPRAZolam 0.25 MG TABLET PO PRN ×2 (10:22→21:08)
[2021-12-15] MEDS: ATORVASTATIN CA 40 MG TABLET (FP) PO SCH (21:01)
[2021-12-16] MEDS: LEVOTHYROXINE NA 50 MCG TABLET (FP) PO SCH (06:07)
[2021-12-16] MEDS: SUCRALFATE 1 GM TABLET (FP) PO SCH ×3 (06:07→21:39)
[2021-12-16] MEDS: LIPASE/PROTEASE/AMYLASE 36,000 UNIT CAPSULE PO SCH ×3 (07:58→17:50)
[2021-12-16] MEDS: VENLAFAXINE HCL 75 MG E.R. CAPSULES PO SCH ×2 (09:17→21:39)
[2021-12-16] MEDS: BRIMONIDINE TARTRATE 0.2% OPHTHALMIC 5 ML BOTTLE OD SCH ×2 (09:18→21:40)
[2021-12-16] MEDS: TIOTROPIUM BROMIDE 2.5 MCG (SPIRIVA) RESPIMAT INHALER IH SCH (09:19)
[2021-12-16] MEDS: BUDESONIDE/FORMETEROL FUMARATE 160/4.5 mcg INHALER IH SCH ×2 (09:19→21:42)
[2021-12-16] MEDS: ALPRAZolam 0.25 MG TABLET PO PRN ×2 (10:09→22:12)
[2021-12-16] MEDS: ATORVASTATIN CA 40 MG TABLET (FP) PO SCH (21:39)
[2021-12-17] MEDS: SUCRALFATE 1 GM TABLET (FP) PO SCH ×3 (05:28→22:12)
[2021-12-17] MEDS: LEVOTHYROXINE NA 50 MCG TABLET (FP) PO SCH (06:04)
[2021-12-17] MEDS: LIPASE/PROTEASE/AMYLASE 36,000 UNIT CAPSULE PO SCH ×3 (08:07→17:04)
[2021-12-17] MEDS: BUDESONIDE/FORMETEROL FUMARATE 160/4.5 mcg INHALER IH SCH ×3 (09:41→22:12)
[2021-12-17] MEDS: TIOTROPIUM BROMIDE 2.5 MCG (SPIRIVA) RESPIMAT INHALER IH SCH (09:41)
[2021-12-17] MEDS: BRIMONIDINE TARTRATE 0.2% OPHTHALMIC 5 ML BOTTLE OD SCH ×2 (09:41→22:12)
[2021-12-17] MEDS: VENLAFAXINE HCL 75 MG E.R. CAPSULES PO SCH ×2 (09:41→22:12)
[2021-12-17 10:21] LABS: BASO % 1.1 % (0-2.0); EOS % 4.5 % (0-4.5); HEMATOCRIT 33.3 % (32.4-45.2); HEMOGLOBIN 10.5 GM/dL (10.7-15.3); LYMPH % 13.7 % (8-40); MCH 27.1 pg (25.7-33.7); MCHC 31.6 g/dl (32.0-36.0); MEAN CELL VOLUME 85.9 fl (80-96); MEAN PLT VOLUME 7.4 fl (7.5-11.1); MONO % 7.7 % (3.8-10.2); PLATELET COUNT 559 10^3/uL (134-434); RBC 3.88 M/mm3 (3.60-5.2); RDW 17.6 % (11.6-15.6); WHITE BLOOD COUNT 7.9 K/mm3 (4.0-10.0)
[2021-12-17 10:55] LABS: ALBUMIN 3.1 g/dl (3.4-5.0); BLOOD UREA NITROGEN 17.6 mg/dL (7-18)
[2021-12-17 10:57] LABS: CREATININE 0.9 mg/dL (0.55-1.3)
[2021-12-17 10:59] LABS: BILIRUBIN,TOTAL 0.4 mg/dL (0.2-1); TOT PROT 7.2 g/dl (6.4-8.2)
[2021-12-17] MEDS ORDERED: IRON SUCROSE INJECTION 200 MG in SODIUM CHLORIDE 90 ML IVPB ONE (14:05)
[2021-12-17] MEDS: ALPRAZolam 0.25 MG TABLET PO SCH (14:24)
[2021-12-17] MEDS: ATORVASTATIN CA 40 MG TABLET (FP) PO SCH (22:12)
[2021-12-18] MEDS: ALPRAZolam 0.25 MG TABLET PO SCH (03:07)
[2021-12-18 05:56] VITALS: PULSE 63; RESP 18
[2021-12-18] MEDS: SUCRALFATE 1 GM TABLET (FP) PO SCH (06:45)
[2021-12-18] MEDS: LEVOTHYROXINE NA 50 MCG TABLET (FP) PO SCH (06:45)
[2021-12-18 09:37] VITALS: BP 122/68; TEMP 97.6
[2021-12-18] MEDS: LIPASE/PROTEASE/AMYLASE 36,000 UNIT CAPSULE PO SCH (10:37)
[2021-12-18] MEDS: VENLAFAXINE HCL 75 MG E.R. CAPSULES PO SCH (10:37)
[2021-12-18] MEDS: BUDESONIDE/FORMETEROL FUMARATE 160/4.5 mcg INHALER IH SCH (10:38)
[2021-12-18] MEDS: BRIMONIDINE TARTRATE 0.2% OPHTHALMIC 5 ML BOTTLE OD SCH ×2 (10:38→10:42)
[2021-12-18] MEDS: TIOTROPIUM BROMIDE 2.5 MCG (SPIRIVA) RESPIMAT INHALER IH SCH (10:47)
== END 2021-12-18 16:45 | disposition home or self-care (01) | DRG 125 ==
LOC: JER 12:22 → JERBED 14:01 → J6S 23:04
PROVIDERS: ADMIT Internal Medicine; ATTEND Family Medicine
DX: H54.62 Unqualified visual loss, left eye, normal vision right eye (principal); I25.110 Atherosclerotic heart disease of native coronary artery with unstable angina pectoris; K21.9 Gastro-esophageal reflux disease without esophagitis; Z95.5 Presence of coronary angioplasty implant and graft; E78.5 Hyperlipidemia, unspecified; I10 Essential (primary) hypertension; D50.9 Iron deficiency anemia, unspecified; R51.9 Headache, unspecified; E03.9 Hypothyroidism, unspecified; E11.9 Type 2 diabetes mellitus without complications; J43.9 Emphysema, unspecified; H57.9 Unspecified disorder of eye and adnexa
CPT/HCPCS: 36415; 70553-TC; 71045-TC-FY; 80053; 80061; 81003; 82728; 83036; 83540; 83550; 84443; 84484; 85025; 85651; 86140; 93005; 93010; 93880-TC; 96365; 97116-GP; 97162-GP; 99285-25; C9803-CS; J1756; U0003; U0005

== ENCOUNTER 2021-12-24 10:15 | Day surgery (SDC) | payer OTHER ==
[2021-12-24 17:17] VITALS: BP 116/74; PULSE 54; RESP 20; TEMP 97.4
== END 2021-12-24 11:45 | disposition home or self-care (01) ==
LOC: JONCNONCHE 10:15
PROVIDERS: ATTEND Internal Medicine Hematology & Oncology
PROC: 3E033GC Introduction of Other Therapeutic Substance into Peripheral Vein, Percutaneous Approach (ICD-10-PCS; principal; 2021-12-24)
DX: D50.9 Iron deficiency anemia, unspecified (principal)
CPT/HCPCS: 96365; J1756

== ENCOUNTER 2022-04-26 07:48 | Day surgery (SDC) | payer OTHER ==
[2022-04-26] MEDS ORDERED: FUROSEMIDE 20 MG TABLET (FP) PO ONE ×2 (09:30→12:45)
[2022-04-26 13:07] VITALS: RESP 18
[2022-04-26 19:01] VITALS: BP 140/72; PULSE 79; TEMP 98.6
== END 2022-04-26 19:01 | disposition home or self-care (01) ==
LOC: JONCBLOOD 07:48
PROVIDERS: ATTEND Internal Medicine Hematology & Oncology
PROC: 30233N1 Transfusion of Nonautologous Red Blood Cells into Peripheral Vein, Percutaneous Approach (ICD-10-PCS; principal; 2022-04-26)
DX: D50.9 Iron deficiency anemia, unspecified (principal); Z88.0 Allergy status to penicillin
CPT/HCPCS: 36430; 86850; 86900; 86901; 86922; P9058

== ENCOUNTER 2022-05-20 10:21 | Day surgery (SDC) | payer OTHER ==
[2022-05-20 14:24] VITALS: BP 138/59; PULSE 57; RESP 20; TEMP 97.5
== END 2022-05-20 11:00 | disposition home or self-care (01) ==
LOC: JONCNONCHE 10:21
PROVIDERS: ATTEND Internal Medicine Hematology & Oncology
PROC: 3E033GC Introduction of Other Therapeutic Substance into Peripheral Vein, Percutaneous Approach (ICD-10-PCS; principal; 2022-05-20)
DX: D50.9 Iron deficiency anemia, unspecified (principal)
CPT/HCPCS: 96365; J1756

== ENCOUNTER 2022-05-27 09:51 | Day surgery (SDC) | payer OTHER ==
[2022-05-27] MEDS ORDERED: IRON SUCROSE INJECTION 200 MG in SODIUM CHLORIDE 100 ML IVPB ONE (10:00)
[2022-05-27 16:48] VITALS: BP 122/61; PULSE 60; RESP 18; TEMP 98.1
== END 2022-05-27 11:00 | disposition home or self-care (01) ==
LOC: JONCNONCHE 09:51
PROVIDERS: ATTEND Internal Medicine Hematology & Oncology
PROC: 3E033GC Introduction of Other Therapeutic Substance into Peripheral Vein, Percutaneous Approach (ICD-10-PCS; principal; 2022-05-27)
DX: E61.1 Iron deficiency (principal)
CPT/HCPCS: 96365; J1756

== ENCOUNTER 2022-06-03 09:56 | Day surgery (SDC) | payer OTHER ==
[2022-06-03] MEDS ORDERED: IRON SUCROSE INJECTION 200 MG in SODIUM CHLORIDE 100 ML IVPB ONE (10:00)
[2022-06-03 18:05] VITALS: BP 138/57; PULSE 55; RESP 20; TEMP 97.7
== END 2022-06-03 18:13 | disposition home or self-care (01) ==
LOC: JONCNONCHE 09:56
PROVIDERS: ATTEND Internal Medicine Hematology & Oncology
PROC: 3E033GC Introduction of Other Therapeutic Substance into Peripheral Vein, Percutaneous Approach (ICD-10-PCS; principal; 2022-06-03)
DX: E61.1 Iron deficiency (principal)
CPT/HCPCS: 96365; J1756

== ENCOUNTER 2022-06-10 09:56 | Day surgery (SDC) | payer OTHER ==
[2022-06-10] MEDS ORDERED: IRON SUCROSE INJECTION 200 MG in SODIUM CHLORIDE 100 ML IVPB ONE (10:00)
[2022-06-10 16:14] VITALS: BP 129/67; PULSE 58; RESP 18; TEMP 98.2
== END 2022-06-10 12:00 | disposition home or self-care (01) ==
LOC: JONCNONCHE 09:56
PROVIDERS: ATTEND Internal Medicine Hematology & Oncology
PROC: 3E033GC Introduction of Other Therapeutic Substance into Peripheral Vein, Percutaneous Approach (ICD-10-PCS; principal; 2022-06-10)
DX: E61.1 Iron deficiency (principal)
CPT/HCPCS: 96365; J1756

== ENCOUNTER 2022-07-08 18:46 | Inpatient (IN) | payer OTHER ==
[2022-07-08 19:08] VITALS: BMI 30.2
[2022-07-08] MEDS ORDERED: ACETAMINOPHEN 1000 MG/100 ML BAG IVPB ONE (19:33)
[2022-07-08] MEDS ORDERED: ACETAMINOPHEN INJECTION 100 ML IVPB ONE (19:50)
[2022-07-08 20:26] LABS: HEMATOCRIT 37.1 % (32.4-45.2); HEMOGLOBIN 12.5 GM/dL (10.7-15.3); MCH 26.9 pg (25.7-33.7); MCHC 33.8 g/dl (32.0-36.0); MEAN CELL VOLUME 79.8 fl (80-96); MEAN PLT VOLUME 7.6 fl (7.5-11.1); PLATELET COUNT 311 10^3/uL (134-434); RBC 4.65 M/mm3 (3.60-5.2); RDW 21.1 % (11.6-15.6); WHITE BLOOD COUNT 4.3 K/mm3 (4.0-10.0)
[2022-07-08 20:29] LABS: INR 1.04 (0.83-1.09); PROTHROMBIN TIME (PATIENT) 12.1 SEC (9.7-13.0)
[2022-07-08 20:31] LABS: ACTIVATED PTT 29.1 SECONDS (25.2-36.5)
[2022-07-08 20:42] LABS: CALCIUM 10.1 mg/dL (8.5-10.1)
[2022-07-08 20:43] LABS: ALBUMIN 3.4 g/dl (3.4-5.0); BLOOD UREA NITROGEN 16.8 mg/dL (7-18); MAGNESIUM 1.5 mg/dL (1.8-2.4)
[2022-07-08 20:46] LABS: CREATININE 0.8 mg/dL (0.55-1.3)
[2022-07-08 20:47] LABS: TOT PROT 7.8 g/dl (6.4-8.2)
[2022-07-08] MEDS ORDERED: MAGNESIUM 1GM/D5W - 2 GM/200 ML IVPB IVPB ONE (21:33)
[2022-07-08 21:41] LABS: ANISOCYTOSIS 1+; MACROCYTOSIS 0; PLATELET ESTIMATE DECREASED
[2022-07-08] MEDS ORDERED: POTASSIUM CHLORIDE ORAL LIQUID 20 MEQ/15 ML PO ONE (21:52)
[2022-07-08] MEDS ORDERED: POTASSIUM CHLORIDE ORAL LIQUID 20 MEQ/15 ML ONE (22:37)
[2022-07-09] MEDS: DEXTROSE 5%-0.45% SALINE 1,000 ML IV SCH (02:33)
[2022-07-09] MEDS ORDERED: KETOROLAC TROMETHAMINE 15 MG/ML VIAL IVPUSH ONE (05:48)
[2022-07-09 09:15] LABS: HEMATOCRIT 31.9 % (32.4-45.2); HEMOGLOBIN 10.8 GM/dL (10.7-15.3); MCH 26.8 pg (25.7-33.7); MCHC 33.8 g/dl (32.0-36.0); MEAN CELL VOLUME 79.3 fl (80-96); MEAN PLT VOLUME 7.8 fl (7.5-11.1); PLATELET COUNT 305 10^3/uL (134-434); RBC 4.02 M/mm3 (3.60-5.2); RDW 21.5 % (11.6-15.6); WHITE BLOOD COUNT 9.9 K/mm3 (4.0-10.0)
[2022-07-09 09:57] LABS: ALBUMIN 2.8 g/dl (3.4-5.0)
[2022-07-09 09:58] LABS: BLOOD UREA NITROGEN 19.6 mg/dL (7-18); CALCIUM 9.3 mg/dL (8.5-10.1)
[2022-07-09 10:01] LABS: BILIRUBIN,TOTAL 1.1 mg/dL (0.2-1); CREATININE 0.9 mg/dL (0.55-1.3); TOT PROT 6.3 g/dl (6.4-8.2)
[2022-07-09 10:06] LABS: ANISOCYTOSIS 1+; MACROCYTOSIS 0
[2022-07-09] MEDS: traMADol HCL 50 MG TABLET PO PRN (13:23)
[2022-07-09] MEDS: TIOTROPIUM BROMIDE 2.5 MCG (SPIRIVA) RESPIMAT INHALER IH SCH (14:41)
[2022-07-09] MEDS ORDERED: ONDANSETRON 4 MG/2 ML VIAL IVPUSH ONE (19:39)
[2022-07-10] MEDS: DEXTROSE 5%-0.45% SALINE 1,000 ML IV SCH ×2 (02:46→07:27)
[2022-07-10 09:17] LABS: HEMATOCRIT 30.8 % (32.4-45.2); HEMOGLOBIN 10.6 GM/dL (10.7-15.3); MCH 27.2 pg (25.7-33.7); MCHC 34.3 g/dl (32.0-36.0); MEAN CELL VOLUME 79.2 fl (80-96); PLATELET COUNT 236 10^3/uL (134-434); RBC 3.89 M/mm3 (3.60-5.2); RDW 21.6 % (11.6-15.6); WHITE BLOOD COUNT 6.6 K/mm3 (4.0-10.0)
[2022-07-10] MEDS: TIOTROPIUM BROMIDE 2.5 MCG (SPIRIVA) RESPIMAT INHALER IH SCH (09:18)
[2022-07-10 09:22] LABS: ALBUMIN 2.4 g/dl (3.4-5.0); BLOOD UREA NITROGEN 16.4 mg/dL (7-18)
[2022-07-10 09:25] LABS: CREATININE 0.9 mg/dL (0.55-1.3)
[2022-07-10 09:26] LABS: BILIRUBIN,TOTAL 0.7 mg/dL (0.2-1); TOT PROT 5.7 g/dl (6.4-8.2)
[2022-07-10] MEDS: traMADol HCL 50 MG TABLET PO PRN (11:03)
[2022-07-10] MEDS ORDERED: IRON SUCROSE INJECTION 200 MG in SODIUM CHLORIDE 90 ML IVPB ONE (14:00)
[2022-07-11] MEDS: DEXTROSE 5%-0.45% SALINE 1,000 ML IV SCH (02:09)
[2022-07-11 08:48] LABS: CALCIUM 8.8 mg/dL (8.5-10.1)
[2022-07-11 08:49] LABS: ALBUMIN 2.5 g/dl (3.4-5.0); BLOOD UREA NITROGEN 11.6 mg/dL (7-18)
[2022-07-11 08:52] LABS: CREATININE 0.6 mg/dL (0.55-1.3)
[2022-07-11 08:53] LABS: BILIRUBIN,TOTAL 0.6 mg/dL (0.2-1); HEMATOCRIT 30.9 % (32.4-45.2); HEMOGLOBIN 10.4 GM/dL (10.7-15.3); MCH 26.5 pg (25.7-33.7); MCHC 33.6 g/dl (32.0-36.0); MEAN PLT VOLUME 7.8 fl (7.5-11.1); PLATELET COUNT 220 10^3/uL (134-434); RBC 3.91 M/mm3 (3.60-5.2); RDW 20.6 % (11.6-15.6); WHITE BLOOD COUNT 6.8 K/mm3 (4.0-10.0)
[2022-07-11 08:54] LABS: TOT PROT 5.8 g/dl (6.4-8.2)
[2022-07-11] MEDS: TIOTROPIUM BROMIDE 2.5 MCG (SPIRIVA) RESPIMAT INHALER IH SCH (09:34)
[2022-07-11] MEDS: traMADol HCL 50 MG TABLET PO PRN ×2 (09:44→17:34)
[2022-07-11] MEDS ORDERED: ALPRAZolam 0.25 MG TABLET PO PRN (18:19)
[2022-07-12] MEDS: DEXTROSE 5%-0.45% SALINE 1,000 ML IV SCH (02:43)
[2022-07-12 08:36] LABS: INR 1.1 (0.83-1.09); PROTHROMBIN TIME (PATIENT) 12.8 SEC (9.7-13.0)
[2022-07-12 08:40] LABS: BASO % 0.5 % (0-2.0); EOS % 2.2 % (0-4.5); HEMATOCRIT 30.6 % (32.4-45.2); HEMOGLOBIN 10.4 GM/dL (10.7-15.3); LYMPH % 7.9 % (8-40); MCH 26.8 pg (25.7-33.7); MEAN CELL VOLUME 78.9 fl (80-96); MEAN PLT VOLUME 8.1 fl (7.5-11.1); MONO % 10.3 % (3.8-10.2); NEUT % 79.1 % (42.8-82.8); PLATELET COUNT 231 10^3/uL (134-434); RBC 3.88 M/mm3 (3.60-5.2); RDW 20.4 % (11.6-15.6)
[2022-07-12 09:02] LABS: ALBUMIN 2.3 g/dl (3.4-5.0); CALCIUM 8.8 mg/dL (8.5-10.1)
[2022-07-12 09:03] LABS: BLOOD UREA NITROGEN 8.7 mg/dL (7-18)
[2022-07-12 09:05] LABS: CREATININE 0.7 mg/dL (0.55-1.3)
[2022-07-12 09:07] LABS: BILIRUBIN,TOTAL 0.3 mg/dL (0.2-1); TOT PROT 5.4 g/dl (6.4-8.2)
[2022-07-12] MEDS ORDERED: VENLAFAXINE HCL 75 MG E.R. CAPSULES PO SCH (10:00)
[2022-07-12] MEDS: TIOTROPIUM BROMIDE 2.5 MCG (SPIRIVA) RESPIMAT INHALER IH SCH (10:41)
[2022-07-12] MEDS ORDERED: KETOROLAC TROMETHAMINE 15 MG/ML VIAL IVPUSH ONE (15:44)
[2022-07-12] MEDS ORDERED: D5-LR+20 MEQ KCL - 20 MEQ/1,000 ML INFUS.BAG IV SCH (17:30)
[2022-07-12 18:14] VITALS: RESP 18
[2022-07-12 19:11] LABS: CK-MM 100 % (97-100)
[2022-07-12 21:03] VITALS: BP 138/68; PULSE 66; TEMP 98
[2022-07-13] MEDS ORDERED: LEVOTHYROXINE NA 75 MCG TABLET (FP) PO SCH (07:00)
[2022-07-15] MEDS ORDERED: LEVOTHYROXINE NA 50 MCG TABLET (FP) PO SCH (07:00)
== END 2022-07-12 21:00 | disposition short-term general hospital (02) | DRG 446 ==
LOC: JER 18:46 → JERBED 07-09 01:22 → J8W 07-09 04:00
PROVIDERS: ADMIT Internal Medicine; ATTEND Family Medicine
PROC: BF13YZZ Fluoroscopy of Gallbladder and Bile Ducts using Other Contrast (ICD-10-PCS; 2022-07-12)
PROC: 0FC98ZZ Extirpation of Matter from Common Bile Duct, Via Natural or Artificial Opening Endoscopic (ICD-10-PCS; principal; 2022-07-12 14:30)
DX: K80.50 Calculus of bile duct without cholangitis or cholecystitis without obstruction (principal); R79.89 Other specified abnormal findings of blood chemistry; J44.9 Chronic obstructive pulmonary disease, unspecified; M54.16 Radiculopathy, lumbar region; K21.9 Gastro-esophageal reflux disease without esophagitis; E03.9 Hypothyroidism, unspecified; I10 Essential (primary) hypertension; E78.5 Hyperlipidemia, unspecified; I25.10 Atherosclerotic heart disease of native coronary artery without angina pectoris
CPT/HCPCS: 0241U-QW; 36415; 73110-TC-RT-FY; 73130-TC-RT-FY; 73562-TC-RT-FY; 74177-TC; 74181-TC; 76705-TC; 80053; 80307; 82550; 82552; 82607; 82728; 82747; 82977; 83516; 83540; 83550; 83605; 83615; 83690; 83735; 84439; 84443; 85014; 85025; 85027; 85610; 85730; 86038; 86705; 86708; 86850; 86900; 86901; 87040; 87340; 87517; 87522; 93005; 93010; 93970-TC; 94010; 97116-GP; 97161-GP; 99285-25; C9803-CS; J1756; Q9967; U0003; U0005

== ENCOUNTER 2023-02-10 09:36 | Day surgery (SDC) | payer OTHER ==
[2023-02-10] MEDS ORDERED: IRON SUCROSE INJECTION 200 MG in SODIUM CHLORIDE 100 ML IVPB ONE (10:00)
[2023-02-10 15:12] VITALS: BP 112/67; PULSE 63; RESP 18; TEMP 97.5
== END 2023-02-10 10:45 | disposition home or self-care (01) ==
LOC: J7W 09:36 → JONCNONCHE 09:36
PROVIDERS: ATTEND Internal Medicine Hematology & Oncology
PROC: 3E033GC Introduction of Other Therapeutic Substance into Peripheral Vein, Percutaneous Approach (ICD-10-PCS; principal; 2023-02-10)
DX: D50.9 Iron deficiency anemia, unspecified (principal)
CPT/HCPCS: 96365; J1756

== ENCOUNTER 2023-02-17 09:02 | Day surgery (SDC) | payer OTHER ==
[2023-02-17] MEDS ORDERED: IRON SUCROSE COMPLEX 200 MG in SODIUM CHLORIDE 100 ML IVPB ONE (10:00)
[2023-02-17 12:43] VITALS: BP 120/62; PULSE 63; RESP 18; TEMP 97.8
== END 2023-02-17 10:25 | disposition home or self-care (01) ==
LOC: JONCNONCHE 09:02 → J7W 09:02 → JONCNONCHE 10:25
PROVIDERS: ATTEND Internal Medicine Hematology & Oncology
PROC: 3E033GC Introduction of Other Therapeutic Substance into Peripheral Vein, Percutaneous Approach (ICD-10-PCS; principal; 2023-02-17)
DX: D50.9 Iron deficiency anemia, unspecified (principal)
CPT/HCPCS: 96365

== ENCOUNTER 2023-02-24 08:56 | Day surgery (SDC) | payer OTHER ==
[2023-02-24] MEDS ORDERED: IRON SUCROSE COMPLEX 200 MG in SODIUM CHLORIDE 100 ML IVPB ONE (10:00)
[2023-02-24 13:41] VITALS: BP 123/68; PULSE 71; RESP 18; TEMP 97.5
== END 2023-02-24 13:44 | disposition home or self-care (01) ==
LOC: JONCNONCHE 08:56 → J7W 08:56 → JONCNONCHE 13:44
PROVIDERS: ATTEND Internal Medicine Hematology & Oncology
PROC: 3E033GC Introduction of Other Therapeutic Substance into Peripheral Vein, Percutaneous Approach (ICD-10-PCS; principal; 2023-02-24)
DX: D50.9 Iron deficiency anemia, unspecified (principal)
CPT/HCPCS: 96365

== ENCOUNTER 2023-03-03 08:50 | Day surgery (SDC) | payer OTHER ==
[2023-03-03] MEDS ORDERED: IRON SUCROSE INJECTION 200 MG in SODIUM CHLORIDE 100 ML IVPB ONE (09:45)
[2023-03-03 16:08] VITALS: BP 130/75; PULSE 82; RESP 20; TEMP 97.5
== END 2023-03-03 11:00 | disposition home or self-care (01) ==
LOC: JONCNONCHE 08:50 → J7W 08:51 → JONCNONCHE 11:00
PROVIDERS: ATTEND Internal Medicine Hematology & Oncology
PROC: 3E033GC Introduction of Other Therapeutic Substance into Peripheral Vein, Percutaneous Approach (ICD-10-PCS; principal; 2023-03-03)
DX: D50.9 Iron deficiency anemia, unspecified (principal)
CPT/HCPCS: 96365; J1756

== ENCOUNTER 2024-11-30 11:44 | Day surgery (SDC) | payer OTHER ==
[2024-11-30] MEDS: FERRIC CARBOXYMALTOSE 750 MG in SODIUM CHLORIDE 250 ML IVPB ONE (12:09)
[2024-11-30 12:59] VITALS: BP 142/70; PULSE 84; RESP 19; TEMP 98.2
== END 2024-11-30 12:55 | disposition home or self-care (01) ==
LOC: FINFUSION 11:44 → FM/S 11:45 → FINFUSION 12:55
PROVIDERS: ATTEND Family Medicine
PROC: 3E033GC Introduction of Other Therapeutic Substance into Peripheral Vein, Percutaneous Approach (ICD-10-PCS; principal; 2024-11-30)
DX: D50.9 Iron deficiency anemia, unspecified (principal)
CPT/HCPCS: 96365; J1439